=== PATIENT | male | born 1935 | race Caucasian/White ===

== ENCOUNTER → 2018-01-03 19:53 | Outpatient (CLI) | payer MEDICARE, SELFPAY | PROVIDERS: PCP Nurse Practitioner Family; Visit Provider Internal Medicine Adolescent Medicine | DX: G47.30 Sleep apnea, unspecified (principal); I10 Essential (primary) hypertension; R40.0 Somnolence | CPT/HCPCS: 95810 ==

== ENCOUNTER 2020-08-17 12:15 | Inpatient (IN) | payer MEDICARE, SELFPAY ==
[2020-08-17] VITALS (16 sets, daily range): BP systolic 114–182; BP diastolic 61–97; PULSE 68–83; RESP 16–18; TEMP 36.5–37.3; O2SAT 92–99; BMI 21.2; BMI 22.2
--- NOTE | 2020-08-17 12:20 | XR_ITS ---
PROCEDURE: XR CHEST PORTABLE CLINICAL HISTORY: fever COMPARISON: CT CT ABDOMEN PELVIS WO CON from 08/17/2020 FINDINGS: There is mild cardiomegaly with mild pulmonary venous congestion. Small bilateral pleural effusions are present better demonstrated on the recent abdomen CT. Atelectatic changes are present in the lung bases. There is faint increased density in the right lower lung zone which may be related to an area infiltrate or atelectatic change. Ground-glass attenuation noted in the left lower lobe on the recent CT scan and may be due to an area of patchy infiltrate not as well demonstrated on the radiograph. IMPRESSION: Small bilateral pleural effusions with slight increased markings in the right lower lobe which may be due to atelectasis or infiltrate. Faint ground-glass density in the left lower lobe also possibly due to atelectasis or infiltrate. Dictated by: Aiden Tobias MD 08/17/2020 16:26 Aiden Tobias MD in [place] 08/17/2020 16:26
--- NOTE | 2020-08-17 12:26 | CT_ITS ---
PROCEDURE: CT ABDOMEN PELVIS WO CON CLINICAL INDICATION: abd pain, vomiting Abdominal pain with nausea vomiting and diarrhea and fever COMPARISON: No exams were available for comparison TECHNIQUE: Axial images obtained with sagittal and coronal reformats. All CT scans at the facility use one or more dose reduction, viz: automated exposure control, ma/kV adjustment per patient size (including targeted exams where dose is matched to indication, i.e. head), or iterative reconstruction technique. FINDINGS: LOWER THORAX: There are small bilateral pleural effusions. Atelectatic changes are present in the lung bases. ABDOMEN & PELVIS: Prior cholecystectomy. Small pericardial effusion noted anteriorly and inferiorly. No focal liver lesion. The spleen, adrenal glands, have an unremarkable appearance. There is pancreatic atrophy. There has been a prior right nephrectomy. Left kidney has an unremarkable unenhanced appearance. No intestinal obstruction or free air. Prior partial right maikel colectomy with anastomosis to the small bowel in the right lower quadrant. Bowel gas pattern is nonspecific with scattered non distended fluid-filled loops of small bowel with a few air-fluid levels. No free air. There is colonic diverticulosis but no evidence of diverticulitis. Artifact is present from right hip prosthesis. No acute bony findings. There is a small sclerotic focus in the left acetabular region posteriorly and may be due to small bone island. IMPRESSION: 1. Small bilateral pleural effusions with mild bibasilar atelectasis. 2. Prior right nephrectomy and prior partial right hemicolectomy. 3. Scattered nondistended fluid-filled loops of small bowel with air-fluid levels which could be due to ileus or enteritis. 4. Colonic diverticulosis. No evidence of diverticulitis. Dictated by: Aiden Tobias MD 08/17/2020 15:11 Aiden Tobias MD in [place] 08/17/2020 15:11
--- NOTE | 2020-08-17 12:27 | HMH.EDGENADL ---
ED Disposition Clinical Impression: Ileus, Colitis, PEACE (acute kidney injury) Disposition: Admitted As Inpatient Condition on Discharge: Fair Time of Disposition: 16:22 - Critical Care Critical Care Time: No Attestation: On , the high probability of a clinically significant, sudden or life threatening deterioration of the following system(s) required my full and direct attention, intervention and personal management. The time I documented below is in addition to time spent performing reported procedures but includes the following listed in this critical care notation. Medical Decision Making - Medical Records Medical records reviewed: Yes: I reviewed the patient's medical records. - Mark Inquiry Pt receiving controlled substance: No Vital Signs: 08/17/20 12:31 08/17/20 12:54 08/17/20 13:01 Temperature 98.6 F Temperature Source Oral Pulse Rate 69 71 Pulse Rate [Right] 74 Respiratory Rate 16 Blood Pressure 137/69 135/61 Blood Pressure [Right Arm] 142/69 H Blood Pressure Mean Blood Pressure Mean [Right Arm] 93 Blood Pressure Source [Right Arm] Automatic Cuff Blood Pressure Position [Right Arm] Sitting 02 Sat by Pulse Oximetry 98 97 96 Oxygen Delivery Method Room Air 08/17/20 13:30 08/17/20 14:01 08/17/20 14:52 Temperature Temperature Source Pulse Rate 68 69 69 Pulse Rate [Right] Respiratory Rate Blood Pressure 140/71 126/65 157/75 H Blood Pressure [Right Arm] Blood Pressure Mean 94 Blood Pressure Mean [Right Arm] Blood Pressure Source [Right Arm] Blood Pressure Position [Right Arm] 02 Sat by Pulse Oximetry 97 97 99 Oxygen Delivery Method 08/17/20 15:00 08/17/20 15:30 08/17/20 15:45 Temperature Temperature Source Pulse Rate 71 71 72 Pulse Rate [Right] Respiratory Rate Blood Pressure 146/72 H 152/75 H 144/70 H Blood Pressure [Right Arm] Blood Pressure Mean 100 Blood Pressure Mean [Right Arm] Blood Pressure Source [Right Arm] Blood Pressure Position [Right Arm] 02 Sat by Pulse Oximetry 98 97 95 Oxygen Delivery Method 08/17/20 16:01 08/17/20 16:15 08/17/20 16:23 Temperature Temperature Source Pulse Rate 72 77 73 Pulse Rate [Right] Respiratory Rate Blood Pressure 161/83 H 177/97 H 176/90 H Blood Pressure [Right Arm] Blood Pressure Mean Blood Pressure Mean [Right Arm] Blood Pressure Source [Right Arm] Blood Pressure Position [Right Arm] 02 Sat by Pulse Oximetry 97 96 96 Oxygen Delivery Method 08/17/20 16:31 Temperature Temperature Source Pulse Rate 72 Pulse Rate [Right] Respiratory Rate Blood Pressure 182/86 H Blood Pressure [Right Arm] Blood Pressure Mean Blood Pressure Mean [Right Arm] Blood Pressure Source [Right Arm] Blood Pressure Position [Right Arm] 02 Sat by Pulse Oximetry 95 Oxygen Delivery Method - Lab Data Lab Results 08/17/20 12:30: WBC 14.9 H, RBC 3.50 L, Hgb 8.8 L, Hct 30.2 L, MCV 86.3, MCH 25.0 L, MCHC 29.0 L, RDW 14.0, Plt Count 454 H, MPV 7.5, Neut % (Auto) 90.6 H, Lymph % (Auto) 3.9 L, [place] % (Auto) 5.3, Eos % (Auto) 0.1, Baso % (Auto) 0.1, Neut # (Auto) 13.5 H, Lymph # (Auto) 0.6 L, [place] # (Auto) 0.8, Eos # (Auto) 0.0, Baso # (Auto) 0.0, Total Counted 100, Neutrophils % (Manual) 93 H, Lymphocytes % (Manual) 2 L, Monocytes % (Manual) 5, Platelet Estimate Normal, Hypochromasia 3+ 08/17/20 12:30: Sodium 135 L, Potassium 4.7, Chloride 103, Carbon Dioxide 24, Anion Gap 12.7, BUN 30 H, Creatinine 2.30 H, Estimated Creat Clear 25, Estimated GFR 27 L, Est GFR ( Amer) 33 L, Glucose 106 H, Calcium 8.9, Total Bilirubin 0.8, AST 23, ALT 12, Alkaline Phosphatase 129 H, Total Protein 7.2, Albumin 3.8, Globulin 3.4 H, Albumin/Globulin Ratio 1.1 08/17/20 12:30: Lactate 1.3 08/17/20 12:30: Lipase 17 L, Procalcitonin 0.628 08/17/20 14:47: Urine Color Yellow, Urine Appearance Clear, Urine pH 5.0, Ur Specific [place] 1.010, Urine Protein Negative, Uri
[2020-08-17 12:58] LABS: Basophils % 0.1 % (0.1-2.0); Chloride 103 mmol/L (98-107); Eosinophils % 0.1 % (0.1-12.0); Hematocrit 30.2 % (42.0-52.0); Hemoglobin 8.8 g/dL (14.1-18.0); Lymphocytes # 0.6 K/mm3 (0.7-4.5); Lymphocytes % 3.9 % (10-50); Mean Corpuscular Volume 86.3 fl (80-94); Mean Platelet Volume 7.5 fl (7.4-10.4); Monocytes # 0.8 K/mm3 (0.1-1.0); Monocytes % 5.3 % (1.7-9.3); Neutrophils # 13.5 K/mm3 (1.8-7.8); Neutrophils % 90.6 % (37.0-80.0); Platelet Count 454 K/mm3 (142-424); Sodium 135 mmol/L (136-145); White Blood Count 14.9 K/mm3 (4.8-10.8)
[2020-08-17 12:59] LABS: MANUAL DIFFERENTIAL MANUAL DIFFERENTIAL (MANUAL DIFF); Potassium 4.7 mmoL/L (3.5-5.1)
[2020-08-17 13:00] LABS: Lactic Acid 1.3 mmol/L (0.7-2.1)
[2020-08-17 13:01] LABS: Alanine Aminotransferase 12 U/L (12-78); Albumin Level 3.8 g/dl (3.5-5.0); Alkaline Phosphatase 129 U/L (38-126); Anion Gap 12.7 mEq/L (5-15); Aspartate Amino Transferase 23 U/L (17-59); Bilirubin,Total 0.8 mg/dl (0.2-1.3); Blood Urea Nitrogen 30 mg/dl (9-20); Carbon Dioxide 24 mmol/L (22.0-30.0); Creatinine Clearance Estimated 25 mL/min (50-200); Estimated Glomerular Filt Rate 27 ml/min (>60); GFR (African American) 33 ML/MIN (>60); Lipase 17 U/L (23-300)
[2020-08-17 13:02] LABS: Albumin/Globulin Ratio 1.1 (1.1-1.8); Calcium 8.9 mg/dl (8.4-10.2); Globulin 3.4 g/dL (1.3-3.2); Glucose 106 mg/dl (74-100); Total Protein,Serum 7.2 g/dl (6.3-8.2)
[2020-08-17 13:18] LABS: Procalcitonin 0.628 ng/mL (0.0-2.0)
--- NOTE | 2020-08-17 14:12 | PC.NURSE ---
patient to CT via stretcher.
--- NOTE | 2020-08-17 14:33 | PC.NURSE ---
Pt returned from rad
[2020-08-17 14:55] LABS: Microscopic, Urine URINE MICROSCOPIC (MICROSCOPIC)
[2020-08-17 15:02] LABS: Appearance,Urine CLEAR (Clear); Bilirubin,Urine Negative (Negative); Blood, Urine TRACE-I (Negative); Color,Urine YELLOW (Yellow); Glucose,Urine (UA) Negative (Negative); Ketones,Urine Negative (Negative); Leukocyte Esterase,Urine Negative (Negative); Nitrate,Urine Negative (Negative); Protein,Urine Negative (Negative); Urobilinogen,Urine 0.2 EU/dl (0.2)
[2020-08-17 15:17] LABS: Lymphocytes % 2 % (10-50); Monocytes % 5 % (2-9); Neutrophils % 93 % (42-76); Platelet Estimate Normal; Total Cells Counted 100
[2020-08-17 15:18] LABS: Bacteria,Urine 1+ /lpf; RBC,Urine Occasional #/hpf (0-3)
[2020-08-17 15:18] LABS: Hypochromasia 3+
--- NOTE | 2020-08-17 18:05 | PC.NURSE ---
report called to 2nd floor JONNATHAN Odom
--- NOTE | 2020-08-17 18:19 | PC.NURSE ---
Pt arrived to the floor at this time/
--- NOTE | 2020-08-18 03:07 | PC.NURSE ---
No acute changes overnight. A&O. Pt has slept well this shift. No c/o pain. Able to ambulate with standby assist and walker to bathroom. Lungs CTA, on room air. No edema noted. pt able to turn independently in bed. Bowel sounds x4, abd soft and nontender. IV patent, NS @ 150. VSS, call light in reach, no concerns at this time.
[2020-08-18 03:55] VITALS: BP 119/65; PULSE 84; RESP 16; TEMP 36.7; O2SAT 90
[2020-08-18 05:00] VITALS: BMI 23.3
[2020-08-18 07:11] LABS: Anion Gap 11.6 mEq/L (5-15); Blood Urea Nitrogen 27 mg/dl (9-20); Carbon Dioxide 19 mmol/L (22.0-30.0); Chloride 110 mmol/L (98-107); Creatinine Clearance Estimated 29 mL/min (50-200); Estimated Glomerular Filt Rate 29 ml/min (>60); GFR (African American) 35 ML/MIN (>60); Glucose 119 mg/dl (74-100); Potassium 4.6 mmoL/L (3.5-5.1); Sodium 136 mmol/L (136-145)
[2020-08-18 07:13] LABS: Calcium 7.9 mg/dl (8.4-10.2)
[2020-08-18 07:23] LABS: Basophils % 0.2 % (0.1-2.0); Hematocrit 24.1 % (42.0-52.0); Lymphocytes # 0.8 K/mm3 (0.7-4.5); Lymphocytes % 3.5 % (10-50); Mean Corpuscular HGB Conc 31.5 g/dL (31.8-35.4); Mean Corpuscular Hemoglobin 26.4 pg (27.0-31.2); Mean Corpuscular Volume 83.7 fl (80-94); Mean Platelet Volume 7.8 fl (7.4-10.4); Monocytes % 4.7 % (1.7-9.3); Neutrophils # 19.6 K/mm3 (1.8-7.8); Neutrophils % 91.6 % (37.0-80.0); Platelet Count 394 K/mm3 (142-424); Red Blood Count 2.88 M/mm3 (4.60-6.20); Red Cell Distribution Width 14.8 % (11.5-17.5); White Blood Count 21.4 K/mm3 (4.8-10.8)
--- NOTE | 2020-08-18 07:33 | P.CONPHA_ITS ---
[facility] Pharmacy VTE Monitoring - Patient Demographics Admission date: 08/17/20 Report Date: 08/18/20 Time: 07:33 Allergies/Adverse Reactions: Patient Allergies No Known Allergies Allergy (Verified 08/17/20 12:41) Height: 1.85 m Weight: 80.002 kg Patient Problems: Current Active Problems Ileus (Acute) Colitis (Acute) PEACE (acute kidney injury) (Acute) - VTE Risk Labs: VTE Related Lab Results Hgb 8.8 g/dL (14.1-18.0) L 08/17/20 12:30 Hct 30.2 % (42.0-52.0) L 08/17/20 12:30 Plt Count 454 K/mm3 (142-424) H 08/17/20 12:30 BUN 27 mg/dl (9-20) H 08/18/20 06:37 Creatinine 2.20 mg/dl (0.66-1.25) H 08/18/20 06:37 Estimated Creat Clear 29 mL/min (50-200) 08/18/20 06:37 - Prophylaxis VTE Prophylaxis Ordered?: Yes Types of VTE Prophylaxis: TEDS Knee High Location of Applied Device: Bilateral Lower Extremeties
[2020-08-18 07:36] LABS: Hemoglobin 7.6 g/dL (14.1-18.0)
[2020-08-18 07:37] LABS: MANUAL DIFFERENTIAL MANUAL DIFFERENTIAL (MANUAL DIFF)
[2020-08-18 07:44] VITALS: BP 137/59; PULSE 74; RESP 17; TEMP 36.9; O2SAT 92
[2020-08-18 08:00] VITALS: O2SAT 92
--- NOTE | 2020-08-18 09:23 | HMH.PHACONS ---
- Pharmacy Consult Date: 08/18/20 Time: 09:23 Referring provider: DR. HUFF Reason for Consult:: VANCOMYCIN DOSING Allergies and ADEs:: Allergies Allergy/AdvReac Type Severity Reaction Status Date / Time No Known Allergies Allergy Verified 08/17/20 12:41 Home Medications:: Home Medications Medication Instructions Recorded Confirmed Type Buspirone HCl [Buspar 10mg 10 mg PO BID 08/17/20 08/17/20 History tablet] Fluoxetine HCl [Prozac] 40 mg PO BID 08/17/20 08/17/20 History Gabapentin 600 mg PO BID 08/17/20 08/17/20 History Hydrocodone/Acetaminophen 7.5 - 325 mg PO TID 08/17/20 08/17/20 History [Hydrocodone-Acetamin 7.5-325] Lansoprazole 30 mg PO DAILY 08/17/20 08/17/20 History Ropinirole HCl 1 mg PO BID 08/17/20 08/17/20 History carvediloL [Carvedilol 3.125mg Tab] 3.125 mg PO BID 08/17/20 08/17/20 History Height: 1.85 m Weight: 80.002 kg Laboratory Results:: Laboratory Results - last 24 hr 08/17/20 12:30: WBC 14.9 H, RBC 3.50 L, Hgb 8.8 L, Hct 30.2 L, MCV 86.3, MCH 25.0 L, MCHC 29.0 L, RDW 14.0, Plt Count 454 H, MPV 7.5, Neut % (Auto) 90.6 H, Lymph % (Auto) 3.9 L, [place] % (Auto) 5.3, Eos % (Auto) 0.1, Baso % (Auto) 0.1, Neut # (Auto) 13.5 H, Lymph # (Auto) 0.6 L, [place] # (Auto) 0.8, Eos # (Auto) 0.0, Baso # (Auto) 0.0, Total Counted 100, Neutrophils % (Manual) 93 H, Lymphocytes % (Manual) 2 L, Monocytes % (Manual) 5, Platelet Estimate Normal, Hypochromasia 3+ 08/17/20 12:30: Sodium 135 L, Potassium 4.7, Chloride 103, Carbon Dioxide 24, Anion Gap 12.7, BUN 30 H, Creatinine 2.30 H, Estimated Creat Clear 25, Estimated GFR 27 L, Est GFR ( Amer) 33 L, Glucose 106 H, Calcium 8.9, Total Bilirubin 0.8, AST 23, ALT 12, Alkaline Phosphatase 129 H, Total Protein 7.2, Albumin 3.8, Globulin 3.4 H, Albumin/Globulin Ratio 1.1 08/17/20 12:30: Lactate 1.3 08/17/20 12:30: Lipase 17 L, Procalcitonin 0.628 08/17/20 14:47: Urine Color Yellow, Urine Appearance Clear, Urine pH 5.0, Ur Specific [place] 1.010, Urine Protein Negative, Urine Glucose (UA) Negative, Urine Ketones Negative, Urine Blood Trace-i, Urine Nitrate Negative, Urine Bilirubin Negative, Urine Urobilinogen 0.2, Ur Leukocyte Esterase Negative, Urine RBC Occasional, Urine WBC 3-5, Ur Squamous Epith Cells 3-5, Urine Bacteria 1+ 08/18/20 06:37: WBC 21.4 H* D, RBC 2.88 L, Hgb 7.6 L*, Hct 24.1 L, MCV 83.7, MCH 26.4 L, MCHC 31.5 L, RDW 14.8, Plt Count 394, MPV 7.8, Neut % (Auto) 91.6 H, Lymph % (Auto) 3.5 L, [place] % (Auto) 4.7, Eos % (Auto) 0.0 L, Baso % (Auto) 0.2, Neut # (Auto) 19.6 H, Lymph # (Auto) 0.8, [place] # (Auto) 1.0, Eos # (Auto) 0.0, Baso # (Auto) 0.0 08/18/20 06:37: Sodium 136, Potassium 4.6, Chloride 110 H, Carbon Dioxide 19 L D, Anion Gap 11.6, BUN 27 H, Creatinine 2.20 H, Estimated Creat Clear 29, Estimated GFR 29 L, Est GFR ( Amer) 35 L, Glucose 119 H, Calcium 7.9 L D Medical History: Reports:: Cancer Denies:: Diabetes Mellitus Type 1, Diabetes Mellitus Type 2 Assessment and Plan - Assessment and plan all Dx Assessment and Plan for all problems:: BASED ON PATIENT FACTORS, RECOMMEND INITIATING VANCOMYCIN AT 1,250MG IV EVERY 36 HOURS. PHARMACY WILL MONITOR PATIENT'S RESPONSE AND WILL ADJUST DOSE APPROPRIATE. -NURIA NIELSON, AMID
--- NOTE | 2020-08-18 09:38 | HMH.PHAINT ---
MEDICATION RECONCILIATION COMPLETED ON PATIENT USING EXTERNAL FILL HISTORY FROM PHARMACY. -NURIA NIELSON, AMID
[2020-08-18 09:48] LABS: Lymphocytes % 2 % (10-50); Monocytes % 7 % (2-9); Neutrophils % 91 % (42-76); Platelet Estimate Normal; Total Cells Counted 100
[2020-08-18 09:49] LABS: Hypochromasia 3+; Microcytosis 1+
--- NOTE | 2020-08-18 13:28 | HMH.HP ---
*Admission Date: 08/17/20 *Chief complaint: cough, fever; swelling of lip/nose *History of present illness: 84 yo M with worsening cough, diarrhea, weakness, and concern for dehydration, for a few days. Worsening overall fo ra few weeks though per daughters report. She noted redness and swelling of nose and lips 2-3 days ago. Presented to the ER last night with his daughter after developing a fever yesterday to greater than 100. He has stopped drinking and eating well per her report. On presentation to the ER he was noted to have PEACE, leukocytosis, and anemia. Daughter concern for infection of his face given the swelling of his upper lip. CT of patient's abdomen and pelvis showed left lower lobe consolidation as well as bowel loops with air-fluid levels. Started on Zosyn, admitted to medicine for further management. On labs this morning, patient's white cell count has worsened. He is remained afebrile however and hemodynamically stable. Stable on room air. Continues to have swelling of his face but states that pressure/pain is somewhat better today. Of note, Hx significant for hypertension, cancer status post nephrectomy of right kidney in April of this year. Daughter reports right lower lobe pneumonia a month ago treated as an outpatient with some improvement clinically. [facility] History I have reviewed the patient's past medical history: Yes Medical History: Reports:: Cancer Denies:: Diabetes Mellitus Type 1, Diabetes Mellitus Type 2 *Have you ever received a pneumonia vaccine?: Yes *Have you received a flu vaccine this season?: Yes Laterality Cases: Right: Total Knee Replacement Other Surgeries: Yes: Cancer Surgery - *Social History Smoking Status: Never smoker Alcohol Intake: never *Occupational Status:: retired Housing: house Household Members: family *Travel in the last 8 weeks: None Family Hx:: Cancer, Diabetes, Stroke Review of Systems - Review of Systems Review of systems:: pertinent systems reviewed and negative unless documented below - *Neurologic Reports weakness, Denies dizziness, Denies headache(s), Denies numbness, Denies tingling Meds Home Medications Medication Instructions Recorded Confirmed Type Buspirone HCl [Buspar 10mg 10 mg PO BID 08/17/20 08/17/20 History tablet] Fluoxetine HCl [Prozac] 40 mg PO BID 08/17/20 08/17/20 History Gabapentin 600 mg PO BID 08/17/20 08/17/20 History Hydrocodone/Acetaminophen 1 each PO TID 08/17/20 08/18/20 History [Hydrocodone-Acetamin 7.5-325] Lansoprazole 30 mg PO DAILY 08/17/20 08/17/20 History Ropinirole HCl 1 mg PO BID 08/17/20 08/17/20 History carvediloL [Carvedilol 3.125mg Tab] 3.125 mg PO BID 08/17/20 08/17/20 History Allergies Allergy/AdvReac Type Severity Reaction Status Date / Time No Known Allergies Allergy Verified 08/17/20 12:41 Exam Vital signs and Labs for Last 24 Hours: Temp Pulse Resp BP Pulse Ox 98.4 F 74 17 137/59 L 92 L 08/18/20 07:44 08/18/20 07:44 08/18/20 07:44 08/18/20 07:44 08/18/20 08:00 Laboratory Results - last 24 hr 08/17/20 12:30: Total Counted 100, Neutrophils % (Manual) 93 H, Lymphocytes % (Manual) 2 L, Monocytes % (Manual) 5, Platelet Estimate Normal, Hypochromasia 3+ 08/17/20 12:30: Lipase 17 L, Procalcitonin 0.628 08/17/20 14:47: Urine Color Yellow, Urine Appearance Clear, Urine pH 5.0, Ur Specific [place] 1.010, Urine Protein Negative, Urine Glucose (UA) Negative, Urine Ketones Negative, Urine Blood Trace-i, Urine Nitrate Negative, Urine Bilirubin Negative, Urine Urobilinogen 0.2, Ur Leukocyte Esterase Negative, Urine RBC Occasional, Urine WBC 3-5, Ur Squamous Epith Cells 3-5, Urine Bacteria 1+ 08/18/20 06:37: WBC 21.4 H* D, RBC 2.88 L, Hgb 7.6 L*, Hct 24.1 L, MCV 83.7, MCH 26.4 L, MCHC 31.5 L, RDW 14.8, Plt Count 394, MPV 7.8, Neut % (Auto) 91.6 H, Lymph % (Auto) 3.5 L, [place] % (Auto) 4.7, Eos % (Auto) 0.0 L, Baso % (Auto) 0.2, Neut # (Auto) 19.6 H, Lymph # (Auto) 0.8, [place] # (Auto) 1.0, Eos #
--- NOTE | 2020-08-18 14:12 | CT_ITS ---
PROCEDURE: CT FACIAL BONES WO CON CLINICAL HISTORY: Swelling of upper lip Soreness in nose Hx of kidney cancer COMPARISON: No exams were available for comparison TECHNIQUE: Axial images obtained with sagittal and coronal reformats. All CT scans at the facility use one or more dose reduction, viz: automated exposure control, ma/kV adjustment per patient size (including targeted exams where dose is matched to indication, i.e. head), or iterative reconstruction technique. FINDINGS: Mild diffuse soft tissue swelling is present involving the inferior aspect of the soft tissues of the nose and the upper lip slightly eccentric toward the right. No obvious abscess. No underlying bony destruction. The patient is edentulous. No sinus air-fluid level or significant mucosal thickening. There is mild leftward nasal septal deviation with septal spur projecting toward the left. No mastoid effusion. The orbits have an unremarkable appearance. IMPRESSION: Diffuse soft tissue swelling of the upper lip and lower aspect of the nose without obvious abscess or bony destruction. Dictated by: Aiden Tobias MD 08/19/2020 08:02 Aiden Tobias MD in [place] 08/19/2020 08:02
[2020-08-18 15:59] VITALS: BP 132/58; PULSE 65; RESP 19; TEMP 36.4; O2SAT 95
--- NOTE | 2020-08-18 16:35 | PC.NURSE ---
Pt has rested the majority of this shift. Pt ambulates in room w/ standby assist and walker. Bed alarm placed on pt's bed for safety. Fine crackles heard at RLL. Dry, nonproductive cough noted this shift. Pt remains on RA and is tolerating well. Daughter remains at bedside. No other acute changes or complaints at this time.
[2020-08-18 19:45] VITALS: RESP 22
[2020-08-18 20:00] VITALS: BP 95/60; PULSE 79; RESP 22; TEMP 37; O2SAT 95
[2020-08-19] VITALS (22 sets, daily range): BP systolic 120–154; BP diastolic 52–74; PULSE 57–73; RESP 16–25; TEMP 36.4–36.9; O2SAT 88–96; BMI 23.5; BMI 23.6
--- NOTE | 2020-08-19 03:55 | PC.NURSE ---
No acute changes noted. Pt is A&O x4. Has not c/o any discomfort this shift. Has slept well tonight. Has not had any fevers known, but did wake this AM with moist shift and damp pillow. Pt has not had any stools this shift. Ambulated to BR with walker and assist x1. VSS. Lungs are clear but diminished. BS active. During assessment, pt noted to have swelling to lip and pustules to nasal area. Medications administered per mar. Call light within reach. Safety measures in place. Will continue to monitor.
[2020-08-19 07:25] LABS: Basophils % 0.1 % (0.1-2.0); Eosinophils # 0.1 K/mm3 (0.0-0.4); Eosinophils % 0.5 % (0.1-12.0); Lymphocytes # 0.6 K/mm3 (0.7-4.5); Lymphocytes % 3.9 % (10-50); Mean Corpuscular HGB Conc 31.3 g/dL (31.8-35.4); Mean Corpuscular Hemoglobin 26.6 pg (27.0-31.2); Mean Corpuscular Volume 84.8 fl (80-94); Mean Platelet Volume 8.1 fl (7.4-10.4); Monocytes # 0.7 K/mm3 (0.1-1.0); Monocytes % 4.6 % (1.7-9.3); Neutrophils # 14.5 K/mm3 (1.8-7.8); Neutrophils % 90.9 % (37.0-80.0); Platelet Count 373 K/mm3 (142-424); Red Blood Count 2.71 M/mm3 (4.60-6.20); Red Cell Distribution Width 14.7 % (11.5-17.5)
[2020-08-19 07:35] LABS: Hemoglobin 7.2 g/dL (14.1-18.0)
[2020-08-19 07:36] LABS: MANUAL DIFFERENTIAL MANUAL DIFFERENTIAL (MANUAL DIFF)
[2020-08-19 07:38] LABS: Alanine Aminotransferase 9 U/L (12-78); Albumin Level 2.7 g/dl (3.5-5.0); Alkaline Phosphatase 90 U/L (38-126); Anion Gap 10.5 mEq/L (5-15); Aspartate Amino Transferase 17 U/L (17-59); Bilirubin,Total 0.5 mg/dl (0.2-1.3); Blood Urea Nitrogen 30 mg/dl (9-20); Calcium 7.7 mg/dl (8.4-10.2); Carbon Dioxide 19 mmol/L (22.0-30.0); Chloride 112 mmol/L (98-107); Creatinine Clearance Estimated 29 mL/min (50-200); Estimated Glomerular Filt Rate 29 ml/min (>60); GFR (African American) 35 ML/MIN (>60); Globulin 2.8 g/dL (1.3-3.2); Glucose 104 mg/dl (74-100); Potassium 4.5 mmoL/L (3.5-5.1); Sodium 137 mmol/L (136-145); Total Protein,Serum 5.5 g/dl (6.3-8.2)
--- NOTE | 2020-08-19 08:33 | HMH.ACPN2 ---
Internal Medicine - PN: Subj *Date: 08/19/20 *Time: 08:33 Interval history: Patient states that he feels better than he did on admission. Notes that his lip is slightly improved. Exam Vital signs and Labs for Last 24 Hours: Temp Pulse Resp BP Pulse Ox 98.4 F 73 18 136/68 94 L 08/19/20 07:57 08/19/20 07:57 08/19/20 07:57 08/19/20 07:57 08/19/20 07:57 Laboratory Results - last 24 hr 08/18/20 06:37: Total Counted 100, Neutrophils % (Manual) 91 H, Lymphocytes % (Manual) 2 L, Monocytes % (Manual) 7, Platelet Estimate Normal, Hypochromasia 3+, Microcytosis 1+ 08/19/20 07:01: WBC 16.0 H D, RBC 2.71 L, Hgb 7.2 L*, Hct 23.0 L*, MCV 84.8, MCH 26.6 L, MCHC 31.3 L, RDW 14.7, Plt Count 373, MPV 8.1, Neut % (Auto) 90.9 H, Lymph % (Auto) 3.9 L, [place] % (Auto) 4.6, Eos % (Auto) 0.5, Baso % (Auto) 0.1, Neut # (Auto) 14.5 H, Lymph # (Auto) 0.6 L, [place] # (Auto) 0.7, Eos # (Auto) 0.1, Baso # (Auto) 0.0 08/19/20 07:01: Sodium 137, Potassium 4.5, Chloride 112 H, Carbon Dioxide 19 L, Anion Gap 10.5, BUN 30 H, Creatinine 2.20 H, Estimated Creat Clear 29, Estimated GFR 29 L, Est GFR ( Amer) 35 L, Glucose 104 H, Calcium 7.7 L, Magnesium 2.0, Total Bilirubin 0.5, AST 17 D, ALT 9 L, Alkaline Phosphatase 90, Total Protein 5.5 L, Albumin 2.7 L, Globulin 2.8, Albumin/Globulin Ratio 1.0 L I & O for Last 24 hours: Intake & Output 08/16/20 08/17/20 08/18/20 08/19/20 11:59 11:59 11:59 11:59 Intake Total 120 / 120 3080 / 3080 Output Total 100 / 100 Balance 3080 / 3080 Weight 176 lb 6 oz 177 lb 8 oz Microbiology Reports for the Last 24 Hours: Microbiology 08/17/20 14:47 Urine,Random Urine Culture - Preliminary NO GROWTH AFTER 24 HOURS 08/17/20 12:30 Blood Blood Culture - Preliminary 08/17/20 12:30 Blood Blood Culture - Preliminary Narrative: Patient's upper lip is swollen, some pustules, almost consistent with impetigo, his daughter notes that she thinks it started off as an infected hair follicle at the upper aspect of his mustache in the right lower nostril. Lungs have good air movement, some rhonchi in the scattered bases. Heart rate regular. Abdomen soft, patient has an abrasion on his left hand from a recent fall. Otherwise skin is clear. Alert, pleasant, oriented, cranial nerves intact. Assessment and Plan (1) Facial cellulitis Status: Acute Category: Medical Code(s): L03.211 - Cellulitis of face (2) History of nephrectomy, right Status: Acute Category: Surgical Code(s): Z90.5 - Acquired absence of kidney (3) Essential hypertension Status: Acute Category: Medical Code(s): I10 - Essential (primary) hypertension (4) Chronic anemia Status: Acute Category: Medical Code(s): D64.9 - Anemia, unspecified (5) Colitis Status: Acute Category: Medical Code(s): K52.9 - Noninfective gastroenteritis and colitis, unspecified (6) PEACE (acute kidney injury) Status: Acute Category: Medical Code(s): N17.9 - Acute kidney failure, unspecified (7) Left lower lobe pneumonia Status: Acute Category: Medical Code(s): J18.9 - Pneumonia, unspecified organism (8) Recurrent falls Status: Acute Category: Medical Code(s): R29.6 - Repeated falls - Assessment and plan all Dx Assessment and Plan for all problems:: 1. Facial cellulitis-CT scan shows no evidence of abscess, mupirocin added to coverage. ENT consult pending. 2. Pneumonia/pneumonitis/atelectasis-on good respiratory coverage. Pulmonary toilet. Continue oxygen as needed. 3. Anemia-multiple etiologies-probable chronic disease/renal disease-transfused today. 4. Falls-PT/OT evaluation.
--- NOTE | 2020-08-19 09:57 | HMH.SLDYSPHA ---
Speech & Language Evaluation Speech/Language Dysphagia Evaluation Start: 08/19/20 09:46 Freq: ONCE Status: Active Protocol: Document 08/19/20 09:46 GARO (Rec: 08/19/20 09:57 GARO [id number]) Dysphagia Assess/Goals/Plan Assessment Date of Evaluation: 08/19/20 Evaluation Type Initial Certification Assessment/Problems Dysphagia Does Patient Qualify for Service No Qualify/Failure Comment Patient will be placed on least restrictive diet. Showed no overt s/s of dysphagia. Recommendations PHYSICIAN CERTIFICATION: The specified therapy services are required, authorized, and reviewed every 30 days. Diet Recommendations Mechanical Soft Liquid Type Recommendations Normal/Thin SL Swallow Guidelines Standard Aspiration Prec. Dysphagia Swallow Precautions/Strategies Small Bites and Sips,Alternate Liquids/Solids Plan Pt/Guardian verbally ack understanding Yes of dx/prognosis/goals G -code Required No General Information General Current Food Consistancy Regular,Thin Liquids Dentition Edentulous Oxygen Status Room Air Facial Symmetry Symmetrical Patient Orientation Person,Place Dysphagia:Food Presentation Evaluation Food Type Mechanical Soft,Regular,Liquid ,Pudding Dysphagia Evaluation Summary Mr. Roman was given the following consistencies: thins via open cup and straw, pudding, mechanical soft, and regular. No overt s/s of dysphagia were noted during evaluation. At this time, it is recommended that he be placed on mechanical soft diet with chopped meats and thin liquids. ST is not warranted at this time. Should problems continue, it is recommended a MBSS be completed. Stroke Dysphagia Assessment PHYSICIAN CERTIFICATION: I certify the specified therapy services for Marquis Roman are required, authorized, and reviewed every 30 days.
[2020-08-19 10:45] LABS: Lymphocytes % 7 % (10-50); Monocytes % 4 % (2-9); Neutrophils % 89 % (42-76); Platelet Estimate Normal; RBC Morphology Normal; Total Cells Counted 100
--- NOTE | 2020-08-19 16:16 | PC.NURSE ---
Sputum induced, pt unable to make productive cough at this time. Specimen cup left at bedside, encouraged to continue to cough.
--- NOTE | 2020-08-19 16:33 | PC.NURSE ---
Both transfusions completed at this time. VSS. No s/s noted of transfusion reaction. Will continue to monitor.
[2020-08-19 17:50] LABS: Hematocrit 31.2 % (42.0-52.0); Hemoglobin 9.6 g/dL (14.1-18.0)
--- NOTE | 2020-08-19 18:32 | PC.NURSE ---
No acute changes since prior assessment. Pt tolerated blood transfusion well. Pt continues to ambulate in room w/ walker and standby assist. Lung sounds CTA. Pt remains on RA. Will continue to monitor.
[2020-08-20] VITALS (7 sets, daily range): BP systolic 135–156; BP diastolic 64–78; PULSE 74–78; RESP 17–19; TEMP 36.5–37; O2SAT 84–92; BMI 24.5
--- NOTE | 2020-08-20 04:21 | PC.NURSE ---
Pt has rested well this shift. Has ambulated twice to BR with assist x1 and walker. Tolerated well. Pt noted this AM upon VS assessment to have O2 sat of 86% RA. Pt maintained upper 80s, therefore was placed on 2L O2 NC. O2 sat is currently 90%. Pt was given incentive spirometer and educated on its use. Pt demonstrated without difficulty. Lungs are diminished t/o. BS active. No BM this shift. Pt has voided x2. Medication administered per jun. Call light within use. No concerns noted at this time. Will continue to monitor.
--- NOTE | 2020-08-20 06:17 | PC.NURSE ---
MD Geiger notified of blood culture results both sets, MRSA.
[2020-08-20 06:26] LABS: Basophils % 0.1 % (0.1-2.0); Eosinophils # 0.1 K/mm3 (0.0-0.4); Eosinophils % 0.7 % (0.1-12.0); Hematocrit 29.9 % (42.0-52.0); Hemoglobin 9.4 g/dL (14.1-18.0); Lymphocytes # 0.8 K/mm3 (0.7-4.5); Lymphocytes % 4.5 % (10-50); Mean Corpuscular HGB Conc 31.2 g/dL (31.8-35.4); Mean Corpuscular Hemoglobin 26.4 pg (27.0-31.2); Mean Corpuscular Volume 84.5 fl (80-94); Mean Platelet Volume 8.2 fl (7.4-10.4); Monocytes # 0.9 K/mm3 (0.1-1.0); Monocytes % 5.4 % (1.7-9.3); Neutrophils # 15.4 K/mm3 (1.8-7.8); Neutrophils % 89.2 % (37.0-80.0); Platelet Count 433 K/mm3 (142-424); Red Blood Count 3.54 M/mm3 (4.60-6.20); Red Cell Distribution Width 15.3 % (11.5-17.5); White Blood Count 17.3 K/mm3 (4.8-10.8)
[2020-08-20 06:29] LABS: Anion Gap 11.4 mEq/L (5-15); Blood Urea Nitrogen 31 mg/dl (9-20); Calcium 8.1 mg/dl (8.4-10.2); Carbon Dioxide 18 mmol/L (22.0-30.0); Chloride 112 mmol/L (98-107); Creatinine Clearance Estimated 37 mL/min (50-200); Estimated Glomerular Filt Rate 36 ml/min (>60); GFR (African American) 44 ML/MIN (>60); Glucose 108 mg/dl (74-100); Potassium 4.4 mmoL/L (3.5-5.1); Sodium 137 mmol/L (136-145)
[2020-08-20 06:36] LABS: MANUAL DIFFERENTIAL MANUAL DIFFERENTIAL (MANUAL DIFF)
[2020-08-20 07:24] LABS: Eosinophils % 1 % (0-3); Hypochromasia 1+; Lymphocytes % 7 % (10-50); Monocytes % 5 % (2-9); Neutrophils % 87 % (42-76); Total Cells Counted 100
[2020-08-20 07:25] LABS: Platelet Estimate Slight Increase
--- NOTE | 2020-08-20 08:22 | CA_ITS ---
APPROVED REPORT EXAM: Comprehensive 2D, Doppler, and color-flow Echocardiogram Office Machine Technician: Tanya De La Vega RVT Ht: 6 ft 0 in Wt: 185lbs BSA: 2.06 BP: 140/64 mmHg Indications: HTN,PEACE,CHRONIC ANEMIA,MRSA,PNEUMONIA Echo Enhancing Agent Indication: Rule out Shunt Agent(s) / Amount(s) Used: Agitated Saline 5 cc Comments: APPEARS NEG 2D Dimensions LVOT 2.00 cm (M/F) 1.5-2.5 LA Volume 65.00 mL LA Volume Index 31.55 mL/m2 (M/F) 16-34 M-Mode Dimensions RVDd 2.50 cm (0.9-2.6) LA Diam 4.40 cm (1.9-4.0) LVDd 7.50 cm (3.5-5.7) Ao Diam 3.00 cm (2.0-3.7) LVDs 5.10 cm (3.5-5.7) AV Cusp 1.70 cm (1.5-2.6) IVSd 1.00 cm (0.6-1.1) PWd 0.80 cm (0.6-1.1) EF (Teich) 58.40% FS 32.00% EDV (Teich) 298.00 mL ESV (Teich) 124.00 mL LV Diastology E/A Ratio 1.5 MED E' 6.73 (< 7 cm/sec) E'/MED E' Ratio 20.10 (>14) LAT E' 9.75 (<10 cm/sec) E/LAT E' Ratio 13.80 (>14) Aortic Valve AoV Peak Serge. 124.00 (50-130 cm/s) AO Peak GR. 6.00 mmHg Mitral Valve MV E Max Serge. 135.00 (40-130 cm/s) MV A Velocity 92.80 (40-130 cm/s) E/A Ratio 1.50 Pulmonary Valve PV Peak Velocity 90.30 (50-150 cm/s) Tricuspid Valve TR P. Velocity 374.00 cm/s RAP Estimate 10.00 mmHg RVSP 66.00 mmHg Left Ventricle Is moderately enlarged, left ventricle is normal size, mild concentric left ventricular hypertrophy, visually estimated ejection fraction 55% with no regional wall motion abnormality, diastolic parameters are inconclusive. Right Ventricle Right atrium and right ventricle mildly enlarged with normal contractility. Aortic Valve Aortic valve is thickened and calcified without aortic stenosis, there is trace aortic insufficiency. Mitral Valve Mitral valve leaflets are minimally thickened, there is moderate to severe mitral regurgitation. Tricuspid Valve Tricuspid valve leaflets are minimally thickened, there is moderate tricuspid regurgitation, calculated right ventricular systolic pressure 73 mmHg. Pulmonic Valve Pulmonic valve is poorly visualized. Great Vessels Aortic root is normal size. Inferior vena cava is mildly dilated without significant inspiratory collapse. Pericardium No significant pericardial effusion noted Conclusion 1. Biatrial enlargement, normal left ventricular size, mild concentric left ventricular hypertrophy, visually estimated ejection fraction 55% with no regional wall motion abnormality, diastolic parameters are inconclusive. 2. Mildly enlarged right ventricle with normal contractility. 3. Thickened and calcified aortic valve with trace aortic insufficiency. 4. Moderate to severe mitral and moderate tricuspid regurgitation, calculated right ventricular systolic pressure 73 mmHg. 5. No significant pericardial effusion noted, there is left-sided pleural effusion seen, inferior vena cava is mildly dilated without significant inspiratory collapse. Electronically signed by : Shimon Lynn, 08/20/2020 16:15:28
--- NOTE | 2020-08-20 08:28 | HMH.ACPN2 ---
Internal Medicine - PN: Subj *Date: 08/20/20 *Time: 08:28 Interval history: Patient feels better than yesterday. No major complaints. Still feels slightly weak. Does note that he is breathing much better through his nose and states I can snuff. Exam Vital signs and Labs for Last 24 Hours: Temp Pulse Resp BP Pulse Ox 97.7 F 78 18 140/64 92 L 08/20/20 07:47 08/20/20 07:47 08/20/20 07:47 08/20/20 07:47 08/20/20 07:47 Laboratory Results - last 24 hr 08/17/20 14:47: Urine Color Yellow, Urine Appearance Clear, Urine pH 5.0, Ur Specific [place] 1.010, Urine Protein Negative, Urine Glucose (UA) Negative, Urine Ketones Negative, Urine Blood Trace-i, Urine Nitrate Negative, Urine Bilirubin Negative, Urine Urobilinogen 0.2, Ur Leukocyte Esterase Negative, Urine RBC Occasional, Urine WBC 3-5, Ur Squamous Epith Cells 3-5, Urine Bacteria 1+ 08/19/20 07:01: Total Counted 100, Neutrophils % (Manual) 89 H, Lymphocytes % (Manual) 7 L, Monocytes % (Manual) 4, Platelet Estimate Normal, RBC Morphology Normal 08/19/20 08:55: Blood Type A Positive, Antibody Screen Negative, Crossmatch (AHG) See Detail 08/19/20 10:50: Blood Type Confirm A Positive 08/19/20 17:25: Hgb 9.6 L D, Hct 31.2 L 08/20/20 06:03: WBC 17.3 H, RBC 3.54 L D, Hgb 9.4 L, Hct 29.9 L, MCV 84.5, MCH 26.4 L, MCHC 31.2 L, RDW 15.3, Plt Count 433 H, MPV 8.2, Neut % (Auto) 89.2 H, Lymph % (Auto) 4.5 L, [place] % (Auto) 5.4, Eos % (Auto) 0.7, Baso % (Auto) 0.1, Neut # (Auto) 15.4 H, Lymph # (Auto) 0.8, [place] # (Auto) 0.9, Eos # (Auto) 0.1, Baso # (Auto) 0.0, Total Counted 100, Neutrophils % (Manual) 87 H, Lymphocytes % (Manual) 7 L, Monocytes % (Manual) 5, Eosinophils % (Manual) 1, Platelet Estimate Slight increase, Hypochromasia 1+ 08/20/20 06:03: Sodium 137, Potassium 4.4, Chloride 112 H, Carbon Dioxide 18 L, Anion Gap 11.4, BUN 31 H, Creatinine 1.80 H, Estimated Creat Clear 37, Estimated GFR 36 L, Est GFR ( Amer) 44 L D, Glucose 108 H, Calcium 8.1 L I & O for Last 24 hours: Intake & Output 08/17/20 08/18/20 08/19/20 08/20/20 11:59 11:59 11:59 11:59 Intake Total 120 / 120 3080 / 3080 3870 / 3870 Output Total 100 / 100 Balance 3080 / 3080 3870 / 3870 Weight 176 lb 6 oz 177 lb 8 oz 185 lb 5 oz Microbiology Reports for the Last 24 Hours: Microbiology 08/17/20 12:30 Blood Blood Culture - Final Staphylococcus aureus 08/17/20 12:30 Blood Blood Culture - Final Staphylococcus aureus 08/17/20 14:47 Urine,Random Urine Culture - Final NO GROWTH AFTER 48 HOURS Narrative: Pleasant, talkative. Oriented. Nasal swelling is better with less pustular appearance and overall less erythema. Lungs have good air movement, minimal rhonchi in both bases. Heart rate regular. No visible edema, skin is intact. No abdominal swelling. Neurologically intact. Assessment and Plan (1) Facial cellulitis Status: Acute Category: Medical Code(s): L03.211 - Cellulitis of face (2) History of nephrectomy, right Status: Acute Category: Surgical Code(s): Z90.5 - Acquired absence of kidney (3) Essential hypertension Status: Acute Category: Medical Code(s): I10 - Essential (primary) hypertension (4) Chronic anemia Status: Acute Category: Medical Code(s): D64.9 - Anemia, unspecified (5) Colitis Status: Acute Category: Medical Code(s): K52.9 - Noninfective gastroenteritis and colitis, unspecified (6) PEACE (acute kidney injury) Status: Acute Category: Medical Code(s): N17.9 - Acute kidney failure, unspecified (7) Left lower lobe pneumonia Status: Acute Category: Medical Code(s): J18.9 - Pneumonia, unspecified organism (8) Recurrent falls Status: Acute Category: Medical Code(s): R29.6 - Repeated falls (9) MRSA bacteremia Status: Acute Category: Medical Code(s): R78.81 - Bacteremia; B95.62 - Methicillin resistant Stap
--- NOTE | 2020-08-20 09:00 | HMH.OTEV ---
OT Inpatient Evaluation Rehab OT IP Evaluation Start: 08/19/20 08:32 Freq: ONCE Status: Complete Protocol: Document 08/20/20 08:55 BERTSULLY (Rec: 08/20/20 08:59 ALFREDO [id number]) Rehab OT IP Assessment Subjective History *Admission Date: 08/17/20 *Chief complaint: cough, fever ; swelling of lip/nose *History of present illness: 84 yo M with worsening cough, diarrhea, weakness, and concern for dehydration, for a few days. Worsening overall fo ra few weeks though per daughters report. She noted redness and swelling of nose and lips 2-3 days ago. Presented to the ER last night with his daughter after developing a fever yesterday to greater than 100. He has stopped drinking and eating well per her report. On presentation to the ER he was noted to have PEACE, leukocytosis, and anemia. Daughter concern for infection of his face given the swelling of his upper lip. CT of patient's abdomen and pelvis showed left lower lobe consolidation as well as bowel loops with air-fluid levels. Started on Zosyn, admitted to medicine for further management. On labs this morning, patient' s white cell count has worsened. He is remained afebrile however and hemodynamically stable. Stable on room air. Continues to have swelling of his face but states that pressure/pain is somewhat better today. Of note, Hx significant for hypertension, cancer status post nephrectomy of right kidney in April of this year . Daughter reports right lower lobe pneumonia a month ago tr
--- NOTE | 2020-08-20 09:51 | HMH.CONS ---
*Admission Date: 08/17/20 *Reason for consult:: facial cellulitis *History of present illness: facial cellulites- presented and admitted August 17, 2020 [facility] History Medical History: Reports:: Cancer Denies:: Diabetes Mellitus Type 1, Diabetes Mellitus Type 2 *Have you ever received a pneumonia vaccine?: Yes *Have you received a flu vaccine this season?: Yes Laterality Cases: Right: Total Knee Replacement Other Surgeries: Yes: Cancer Surgery - *Social History Smoking Status: Never smoker Alcohol Intake: never *Occupational Status:: retired Housing: house Household Members: family *Travel in the last 8 weeks: None Family Hx:: Cancer, Diabetes, Stroke Review of Systems - ENT Reports other - *Neurologic Reports weakness, Denies dizziness, Denies headache(s), Denies numbness, Denies tingling Meds Home Medications Medication Instructions Recorded Confirmed Type Buspirone HCl [Buspar 10mg 10 mg PO BID 08/17/20 08/17/20 History tablet] Fluoxetine HCl [Prozac] 40 mg PO BID 08/17/20 08/17/20 History Gabapentin 600 mg PO BID 08/17/20 08/17/20 History Hydrocodone/Acetaminophen 1 each PO TID 08/17/20 08/18/20 History [Hydrocodone-Acetamin 7.5-325] Lansoprazole 30 mg PO DAILY 08/17/20 08/17/20 History Ropinirole HCl 1 mg PO BID 08/17/20 08/17/20 History carvediloL [Carvedilol 3.125mg Tab] 3.125 mg PO BID 08/17/20 08/17/20 History Allergies Allergy/AdvReac Type Severity Reaction Status Date / Time No Known Allergies Allergy Verified 08/17/20 12:41 Exam Vital signs and Labs for Last 24 Hours: Temp Pulse Resp BP Pulse Ox 97.7 F 78 18 140/64 92 L 08/20/20 07:47 08/20/20 07:47 08/20/20 07:47 08/20/20 07:47 08/20/20 07:50 Laboratory Results - last 24 hr 08/19/20 07:01: Total Counted 100, Neutrophils % (Manual) 89 H, Lymphocytes % (Manual) 7 L, Monocytes % (Manual) 4, Platelet Estimate Normal, RBC Morphology Normal 08/19/20 08:55: Blood Type A Positive, Antibody Screen Negative, Crossmatch (AHG) See Detail 08/19/20 10:50: Blood Type Confirm A Positive 08/19/20 17:25: Hgb 9.6 L D, Hct 31.2 L 08/20/20 06:03: WBC 17.3 H, RBC 3.54 L D, Hgb 9.4 L, Hct 29.9 L, MCV 84.5, MCH 26.4 L, MCHC 31.2 L, RDW 15.3, Plt Count 433 H, MPV 8.2, Neut % (Auto) 89.2 H, Lymph % (Auto) 4.5 L, [place] % (Auto) 5.4, Eos % (Auto) 0.7, Baso % (Auto) 0.1, Neut # (Auto) 15.4 H, Lymph # (Auto) 0.8, [place] # (Auto) 0.9, Eos # (Auto) 0.1, Baso # (Auto) 0.0, Total Counted 100, Neutrophils % (Manual) 87 H, Lymphocytes % (Manual) 7 L, Monocytes % (Manual) 5, Eosinophils % (Manual) 1, Platelet Estimate Slight increase, Hypochromasia 1+ 08/20/20 06:03: Sodium 137, Potassium 4.4, Chloride 112 H, Carbon Dioxide 18 L, Anion Gap 11.4, BUN 31 H, Creatinine 1.80 H, Estimated Creat Clear 37, Estimated GFR 36 L, Est GFR ( Amer) 44 L D, Glucose 108 H, Calcium 8.1 L I & O for Last 24 hours: Intake & Output 08/17/20 08/18/20 08/19/20 08/20/20 23:59 23:59 23:59 23:59 Intake Total 1344 / 1344 2956 / 2956 2770 / 2770 Output Total 100 / 100 Balance 1244 / 1244 2956 / 2956 2770 / 2770 Weight 168 lb 9 oz 176 lb 6 oz 178 lb 9.191 oz 185 lb 5 oz Microbiology Reports for the Last 24 Hours: Microbiology 08/17/20 12:30 Blood Blood Culture - Final Staphylococcus aureus 08/17/20 12:30 Blood Blood Culture - Final Staphylococcus aureus 08/17/20 14:47 Urine,Random Urine Culture - Final NO GROWTH AFTER 48 HOURS - *Routine HEENT Exam Comments: This patient was admitted from the ER on August 17, 2020 because of severe facial cellulitis. His white blood count was significantly elevated and went up to 21 thousand. As well, he was anemic and his hemoglobin was 8.8 on admission, and he was transfused with 2 units of blood. He was started on piperacillin antibiotics and he has responded to the treatment that was given. When examined for the ENT consult
--- NOTE | 2020-08-20 10:09 | HMH.PTEV ---
Physical Therapy Evaluation Rehab PT IP Evaluation Start: 08/19/20 08:32 Freq: ONCE Status: Active Protocol: Document 08/20/20 10:06 CLAIRE (Rec: 08/20/20 10:09 PHORMARCELLA [id number]) Subjective/History History History 84 yowm adm to [facility] with dehydration, PEACE, and possible sepsis. He reports he lives with daughter, 2-3 steps to enter the home, and he is independent with all mobility at baseline. Subjective Subjective Pt reports no c/o pain this am . Rehab PT IP Eval Objective Appearance Patient Behavior Appropriate Patient Orientation Person,Place,Time Difficulty following instructions none Speech Pattern Clear Ambulation Patient Able to Ambulate Yes Ambulation Observation IP General Gait Pattern Observation Shuffling Step Ambulation Distance (feet) 50 Ambulation Assistive Device Rolling Walker Ambulation Ability Supervision/Stand by Balance Ability to Arise Able, uses arms to help Sitting Balance Steady, safe Standing Balance Steady, wide stance Dynamic Sitting Balance Ability Normal Dynamic Standing Balance Ability Good Transfers Bed Transfer Ability Supervision/Stand by Chair Transfer Ability Supervision/Stand by Sit to Stand Bed Transfer Ability Supervision/Stand by Sit to Stand Chair Transfer Ability Supervision/Stand by ROM LLE PT ROM Status WFL MMT All Extremities PT MMT WFL Rehab PT IP prob,goals,plan Problems Date of Evaluation: 08/20/20 PT IP Problems Bed Mobility,Transfers,Gait, Self care Rehab Potential Rehab Potential Good Plan PT Intervention Plan Bed Mobility,Transfers,Gait, Self care,Therapeutic Exercise PT Plan Frequency BID Duration LOS Discharge Goals Bed Transfer Ability Independent Sit to Stand Chair Transfer Ability Independent Ambulation Assistive Device Rolling Walker Ambulation Distance (feet) 100 Discharge Plan PT Discharge Plan Pt is appropriate to return home once medically stable. Recommend home health therapy upon d/c. G -code Required No Eval Complexity Eval Charge Codes 23132 - Moderate Complexity PHYSICIAN CERTIFICATION: I certify the specified therapy services for
--- NOTE | 2020-08-20 13:02 | PC.NURSE ---
Addendum entered by Joann Gray RN 08/20/20 13:33: 1305 saline lock iv at this time Original Note: Notified Dr Geiger that the pt sats are 84 on ra, faint crackles noted in bob lungs. pt fluids going at 150, may fluids be decreased?
--- NOTE | 2020-08-20 13:55 | XR_ITS ---
PROCEDURE: XR CHEST 2V CLINICAL HISTORY: pleural effusion COMPARISON: CT CT ABDOMEN PELVIS WO CON from 08/17/2020 FINDINGS: The cardiomediastinal silhouette and pulmonary vascularity are within normal limits. Consolidation is developing in both upper lobes and right perihilar region consistent with bilateral pneumonia. There are small bilateral pleural effusions. Atelectasis or infiltrate noted in the left lung base. Chronic interstitial changes are present. Minimal atelectatic changes right lung base. No acute bony abnormalities. IMPRESSION: Worsening bilateral upper lobe and perihilar pneumonia with small bilateral effusions and left basilar atelectasis or consolidation Dictated by: Aiden Tobias MD 08/20/2020 14:46 Aiden Tobias MD in [place] 08/20/2020 14:46
--- NOTE | 2020-08-20 18:56 | PC.NURSE ---
Pt has worked with PT/OT this shift. lungs have scattered crackles. fluids were dc by . pt was placed on o2 and has no longer c/o dyspnea this shift. pt has complained of periodic sweats that soak the bed. nad noted. pt is pleasant.
[2020-08-21] VITALS (12 sets, daily range): BP systolic 133–166; BP diastolic 60–87; PULSE 69–78; RESP 17–22; TEMP 36–36.9; O2SAT 88–96; BMI 25.4
--- NOTE | 2020-08-21 04:30 | PC.NURSE ---
shift summary slight crackles auscultated in bilateral lungs on 1.5Lpm via NC. pt is alert and oriented X4. no acute changes, pt denies any pain, nausea, vomiting, or diarrhea. pt is able to ambulate to bathroom with walker and a standby assist.
[2020-08-21 06:56] LABS: Alanine Aminotransferase 10 U/L (12-78); Albumin Level 2.9 g/dl (3.5-5.0); Alkaline Phosphatase 126 U/L (38-126); Anion Gap 9.4 mEq/L (5-15); Aspartate Amino Transferase 19 U/L (17-59); Bilirubin,Total 0.7 mg/dl (0.2-1.3); Blood Urea Nitrogen 30 mg/dl (9-20); Calcium 8.1 mg/dl (8.4-10.2); Carbon Dioxide 17 mmol/L (22.0-30.0); Chloride 113 mmol/L (98-107); Creatinine Clearance Estimated 38 mL/min (50-200); Estimated Glomerular Filt Rate 36 ml/min (>60); GFR (African American) 44 ML/MIN (>60); Globulin 2.9 g/dL (1.3-3.2); Glucose 98 mg/dl (74-100); Potassium 4.4 mmoL/L (3.5-5.1); Sodium 135 mmol/L (136-145); Total Protein,Serum 5.8 g/dl (6.3-8.2)
[2020-08-21 07:05] LABS: Basophils % 0.2 % (0.1-2.0); Eosinophils # 0.1 K/mm3 (0.0-0.4); Eosinophils % 0.9 % (0.1-12.0); Hematocrit 28.9 % (42.0-52.0); Hemoglobin 9.2 g/dL (14.1-18.0); Lymphocytes # 0.5 K/mm3 (0.7-4.5); Lymphocytes % 4.1 % (10-50); Mean Corpuscular HGB Conc 31.9 g/dL (31.8-35.4); Mean Corpuscular Hemoglobin 26.4 pg (27.0-31.2); Mean Corpuscular Volume 82.9 fl (80-94); Mean Platelet Volume 9.3 fl (7.4-10.4); Monocytes # 0.9 K/mm3 (0.1-1.0); Monocytes % 7.2 % (1.7-9.3); Neutrophils % 87.6 % (37.0-80.0); Platelet Count 388 K/mm3 (142-424); Red Blood Count 3.49 M/mm3 (4.60-6.20); Red Cell Distribution Width 15.5 % (11.5-17.5); White Blood Count 12.6 K/mm3 (4.8-10.8)
[2020-08-21 07:19] LABS: MANUAL DIFFERENTIAL MANUAL DIFFERENTIAL (MANUAL DIFF)
--- NOTE | 2020-08-21 08:26 | HMH.ACPN ---
Internal Medicine - PN: Subj *Date: 08/21/20 *Time: 08:26 Exam Vital signs and Labs for Last 24 Hours: Temp Pulse Resp BP Pulse Ox 97.9 F 70 17 150/74 H 94 L 08/21/20 04:00 08/21/20 04:00 08/21/20 04:00 08/21/20 04:00 08/21/20 04:00 Laboratory Results - last 24 hr 08/21/20 06:11: WBC 12.6 H D, RBC 3.49 L, Hgb 9.2 L, Hct 28.9 L, MCV 82.9, MCH 26.4 L, MCHC 31.9, RDW 15.5, Plt Count 388, MPV 9.3, Neut % (Auto) 87.6 H, Lymph % (Auto) 4.1 L, [place] % (Auto) 7.2, Eos % (Auto) 0.9, Baso % (Auto) 0.2, Neut # (Auto) 11.0 H, Lymph # (Auto) 0.5 L, [place] # (Auto) 0.9, Eos # (Auto) 0.1, Baso # (Auto) 0.0 08/21/20 06:11: Sodium 135 L, Potassium 4.4, Chloride 113 H, Carbon Dioxide 17 L, Anion Gap 9.4, BUN 30 H, Creatinine 1.80 H, Estimated Creat Clear 38, Estimated GFR 36 L, Est GFR ( Amer) 44 L, Glucose 98, Calcium 8.1 L, Total Bilirubin 0.7, AST 19, ALT 10 L, Alkaline Phosphatase 126, Total Protein 5.8 L, Albumin 2.9 L, Globulin 2.9, Albumin/Globulin Ratio 1.0 L I & O for Last 24 hours: Intake & Output 08/18/20 08/19/20 08/20/20 08/21/20 23:59 23:59 23:59 23:59 Intake Total 1344 / 1344 2956 / 2956 3370 / 3370 Output Total 100 / 100 Balance 1244 / 1244 2956 / 2956 3370 / 3370 Weight 80.002 kg 81 kg 84.056 kg 86.908 kg Microbiology Reports for the Last 24 Hours: Microbiology 08/19/20 09:09 Sputum - Expectorated Sputum Gram Stain - Final 08/17/20 12:30 Blood Blood Culture - Final Staphylococcus aureus 08/17/20 12:30 Blood Blood Culture - Final Staphylococcus aureus Assessment and Plan (1) Facial cellulitis Status: Acute Category: Medical Code(s): L03.211 - Cellulitis of face (2) History of nephrectomy, right Status: Acute Category: Surgical Code(s): Z90.5 - Acquired absence of kidney (3) Essential hypertension Status: Acute Category: Medical Code(s): I10 - Essential (primary) hypertension (4) Chronic anemia Status: Acute Category: Medical Code(s): D64.9 - Anemia, unspecified (5) Colitis Status: Acute Category: Medical Code(s): K52.9 - Noninfective gastroenteritis and colitis, unspecified (6) PEACE (acute kidney injury) Status: Acute Category: Medical Code(s): N17.9 - Acute kidney failure, unspecified (7) Left lower lobe pneumonia Status: Acute Category: Medical Code(s): J18.9 - Pneumonia, unspecified organism (8) Recurrent falls Status: Acute Category: Medical Code(s): R29.6 - Repeated falls (9) MRSA bacteremia Status: Acute Category: Medical Code(s): R78.81 - Bacteremia; B95.62 - Methicillin resistant Staphylococcus aureus infection as the cause of diseases classified elsewhere The patient's infection will respond to the chosen ABx?: Yes Is the patient receiving the right drug, dose, and route?: Yes Could a more targeted ABx be ordered?: No (BLOOD CX=MRSA, CONTINUE VANCOMYCIN)
--- NOTE | 2020-08-21 08:32 | HMH.ACPN2 ---
Internal Medicine - PN: Subj *Date: 08/21/20 *Time: 08:32 Interval history: Patient states he feels better, sitting up in his bed eating oatmeal. Pulling 1000 mL on incentive spirometer. Has had a cough productive of very dark sputum, sputum culture has been obtained and is in lab. Exam Vital signs and Labs for Last 24 Hours: Temp Pulse Resp BP Pulse Ox 98.5 F 78 21 166/74 H 89 L 08/21/20 08:00 08/21/20 08:00 08/21/20 08:00 08/21/20 08:00 08/21/20 08:00 Laboratory Results - last 24 hr 08/21/20 06:11: WBC 12.6 H D, RBC 3.49 L, Hgb 9.2 L, Hct 28.9 L, MCV 82.9, MCH 26.4 L, MCHC 31.9, RDW 15.5, Plt Count 388, MPV 9.3, Neut % (Auto) 87.6 H, Lymph % (Auto) 4.1 L, [place] % (Auto) 7.2, Eos % (Auto) 0.9, Baso % (Auto) 0.2, Neut # (Auto) 11.0 H, Lymph # (Auto) 0.5 L, [place] # (Auto) 0.9, Eos # (Auto) 0.1, Baso # (Auto) 0.0 08/21/20 06:11: Sodium 135 L, Potassium 4.4, Chloride 113 H, Carbon Dioxide 17 L, Anion Gap 9.4, BUN 30 H, Creatinine 1.80 H, Estimated Creat Clear 38, Estimated GFR 36 L, Est GFR ( Amer) 44 L, Glucose 98, Calcium 8.1 L, Total Bilirubin 0.7, AST 19, ALT 10 L, Alkaline Phosphatase 126, Total Protein 5.8 L, Albumin 2.9 L, Globulin 2.9, Albumin/Globulin Ratio 1.0 L I & O for Last 24 hours: Intake & Output 08/18/20 08/19/20 08/20/20 08/21/20 11:59 11:59 11:59 11:59 Intake Total 120 / 120 3080 / 3080 3870 / 3870 840 / 840 Output Total 100 / 100 Balance 3080 / 3080 3870 / 3870 840 / 840 Weight 176 lb 6 oz 177 lb 8 oz 185 lb 5 oz 191 lb 9.6 oz Microbiology Reports for the Last 24 Hours: Microbiology 08/19/20 09:09 Sputum - Expectorated Sputum Gram Stain - Final 08/17/20 12:30 Blood Blood Culture - Final Staphylococcus aureus 08/17/20 12:30 Blood Blood Culture - Final Staphylococcus aureus Narrative: Facial cellulitis/impetigo looks markedly improved. Oropharynx clear. Lungs have rhonchi in both bases. Air movement is good. However continues to have an oxygen requirement. Heart rate regular. Abdomen soft. No edema or clubbing. Neurologically intact. Assessment and Plan (1) Facial cellulitis Status: Acute Category: Medical Code(s): L03.211 - Cellulitis of face (2) History of nephrectomy, right Status: Acute Category: Surgical Code(s): Z90.5 - Acquired absence of kidney (3) Essential hypertension Status: Acute Category: Medical Code(s): I10 - Essential (primary) hypertension (4) Chronic anemia Status: Acute Category: Medical Code(s): D64.9 - Anemia, unspecified (5) Colitis Status: Acute Category: Medical Code(s): K52.9 - Noninfective gastroenteritis and colitis, unspecified (6) PEACE (acute kidney injury) Status: Acute Category: Medical Code(s): N17.9 - Acute kidney failure, unspecified (7) Left lower lobe pneumonia Status: Acute Category: Medical Code(s): J18.9 - Pneumonia, unspecified organism (8) Recurrent falls Status: Acute Category: Medical Code(s): R29.6 - Repeated falls (9) MRSA bacteremia Status: Acute Category: Medical Code(s): R78.81 - Bacteremia; B95.62 - Methicillin resistant Staphylococcus aureus infection as the cause of diseases classified elsewhere (10) Pleural effusion Status: Acute Category: Medical Code(s): J90 - Pleural effusion, not elsewhere classified - Assessment and plan all Dx Assessment and Plan for all problems:: 1. MRSA bacteremia-improving clinically. Await negative culture results from repeat culture. At this point we will decide on length of need for vancomycin therapy. 2. Facial cellulitis-probable source-improving. Appreciate ENT input. 3. Pleural effusion with dyspnea and oxygen requirement. Echocardiogram reassuring. Pulmonary consultation today to evaluate for possible thoracentesis versus other changes in therapy. Cefepime today given high likelihood of pneumonia to a
[2020-08-21 08:35] LABS: Vancomycin,Trough 10.1 ug/mL (5.0-10.0)
--- NOTE | 2020-08-21 09:06 | CT_ITS ---
PROCEDURE: CT CHEST WO CON CLINICAL INDICATION: PNM Pneumonia, shortness of breath COMPARISON: CT CT ABDOMEN PELVIS WO CON from 08/17/2020 CR XR CHEST 2V from 08/20/2020 TECHNIQUE: Axial images obtained with sagittal and coronal reformats. All CT scans at the facility use one or more dose reduction, viz: automated exposure control, ma/kV adjustment per patient size (including targeted exams where dose is matched to indication, i.e. head), or iterative reconstruction technique. FINDINGS: HEART AND MEDIASTINAL STRUCTURES: There is a mildly enlarged anterior mediastinal lymph node measuring 2.9 x 1.8 cm. Other smaller nodes are present in the mediastinum. Coronary artery calcifications are noted. LUNGS AND PLEURAL SPACES: There is diffuse bilateral pneumonia with dense consolidation in the right upper lobe and left upper lobe. In the left apex there is a 1.4 cm more dense nodular opacity. In the left upper lobe laterally there is a 12 mm opacity is well. In the right upper lobe laterally there are 2 areas soft tissue density measuring 2 cm each. In the right middle lobe medially there is a nodular opacity at 2 cm in the left upper lobe medially there is a 1.9 cm nodular opacity. 1.8 cm opacity right upper lobe medially. These could be due to more dense areas of consolidation or pulmonary nodules/masses. There are medium-sized bilateral pleural effusions with bibasilar atelectatic changes. The right effusion is slightly larger than the left. BONY STRUCTURES: No acute bony abnormalities apparent. UPPER ABDOMEN: There has been a prior right nephrectomy. ADDITIONAL FINDINGS: No other significant abnormalities. IMPRESSION: 1. Bilateral upper lobe pneumonia. 2. Scattered bilateral nodular opacities. These could be due to areas of more dense consolidation or pulmonary nodules such as metastatic foci. There is given history of renal cancer from the previous CT scan. Follow-up suggested following your resolution of the pneumonia. 3. Medium-sized bilateral pleural effusions right slightly larger than left with bibasilar atelectatic change. Dictated by: Aiden Tobias MD 08/21/2020 11:55 Aiden Tobias MD in [place] 08/21/2020 11:55
--- NOTE | 2020-08-21 09:22 | US_ITS ---
PROCEDURE: US THORACENTESIS CLINICAL INDICATION: PLEURAL EFFUSION COMPARISON: No exams were available for comparison FINDINGS: Following obtaining informed consent and time-out procedure under aseptic conditions with local anesthesia with 1 percent buffered lidocaine, and using sonographic guidance, a 21 gauge needle was inserted into the posterior lower hemithorax within an intercostal space. Approximately thirty mL serous fluid was aspirated. There was no immediate complications. Post procedure radiograph showed no evidence of pneumothorax. Fluid was sent for laboratory analysis as previously ordered IMPRESSION: Uneventful ultrasound-guided right-sided thoracentesis Dictated by: Aiden Tobias MD 08/21/2020 16:42 Aiden Tobias MD in [place] 08/21/2020 16:42
[2020-08-21 09:28] LABS: Hypochromasia 2+; Lymphocytes % 6 % (10-50); Monocytes % 7 % (2-9); Neutrophils % 87 % (42-76); Platelet Estimate Normal; Total Cells Counted 100
--- NOTE | 2020-08-21 09:59 | DIET.NUTRFU ---
Addendum entered by Senait Vidales 08/24/20 12:54: PO intakes 75% + BID supplements, weight stable, has still not had a BM. Both pt's appetite and pain with eating dt cellulitis continuing to improve. No changes to nutritional care plan at this time, continuing to monitor. Original Note: PO intakes 50% + BID supplements. 15# weight gain recorded t/o stay, IVF has been dc'd. No BM t/o stay. Pt states his appetite has improved and mechanical soft diet has improved pain with eating, but he still has difficulty dt facial cellulitis. Pt and daughter have been encouraged to request additional supplements/snacks/replacement meals at any time.
--- NOTE | 2020-08-21 12:29 | XR_ITS ---
PROCEDURE: XR CHEST 2V CLINICAL HISTORY: POST THOROCENTESIS COMPARISON: CR XR CHEST PORTABLE from 08/17/2020 CR XR CHEST 2V from 08/20/[address] CHEST WO CON from 08/21/2020 FINDINGS: The cardiomediastinal silhouette and pulmonary vascularity are within normal limits. Diffuse bilateral pneumonia in the mid and upper lung zones with medium-sized bilateral effusions noted. No evidence of pneumothorax. No acute bony abnormalities. IMPRESSION: Bilateral pneumonia with effusions. No evidence of pneumothorax. Dictated by: Aiden Tobias MD 08/21/2020 13:05 Aiden Tobias MD in [place] 08/21/2020 13:05
--- NOTE | 2020-08-21 13:21 | HMH.PULMCON ---
*Admission Date: 08/17/20 *Reason for consult:: Acute hypoxic respiratory failure, MRSA Pneumonia *History of present illness: 84-year-old male with no prior respiratory complaints not on any oxygen at home, not using any inhalers presented to the hospital complaining of cough diarrhea weakness also concerning for facial cellulitis and eventually admitted to the hospital and found to be bacteremic with MRSA, initiated on antibiotics found to have worsening airspace disease and effusions on today's chest x-rays and pulmonary was called for further management. [facility] History Medical History: Reports:: Cancer Denies:: Diabetes Mellitus Type 1, Diabetes Mellitus Type 2 *Have you ever received a pneumonia vaccine?: Yes *Have you received a flu vaccine this season?: Yes Laterality Cases: Right: Total Knee Replacement Other Surgeries: Yes: Cancer Surgery - *Social History Smoking Status: Never smoker Alcohol Intake: never *Occupational Status:: retired Housing: house Household Members: family *Travel in the last 8 weeks: None Family Hx:: Cancer, Diabetes, Stroke ROS - Cons Reports anorexia, Reports chills, Reports fatigue, Reports fever(s) - ENT Reports abnormal hearing - Card Reports shortness of breath, Reports shortness of breath with activity, Reports leg swelling - Resp Respiratory: Reports chest congestion, Reports dyspnea, Reports dyspnea on exertion, Reports cough with sputum production - GI Gastrointestingal: Denies: abdominal pain Meds Home Medications Medication Instructions Recorded Confirmed Type Buspirone HCl [Buspar 10mg 10 mg PO BID 08/17/20 08/17/20 History tablet] Fluoxetine HCl [Prozac] 40 mg PO BID 08/17/20 08/17/20 History Gabapentin 600 mg PO BID 08/17/20 08/17/20 History Hydrocodone/Acetaminophen 1 each PO TID 08/17/20 08/18/20 History [Hydrocodone-Acetamin 7.5-325] Lansoprazole 30 mg PO DAILY 08/17/20 08/17/20 History Ropinirole HCl 1 mg PO BID 08/17/20 08/17/20 History carvediloL [Carvedilol 3.125mg Tab] 3.125 mg PO BID 08/17/20 08/17/20 History Allergies Allergy/AdvReac Type Severity Reaction Status Date / Time No Known Allergies Allergy Verified 08/17/20 12:41 Exam - Constitutional Constitutional:: Present: comfortable, healthy appearing - HENMT Exam HENMT: Present: normocephalic, atraumatic - Eye Exam Eyes:: Present: normal appearance both eyes and related structures - Neck Exam Neck:: Present: normal visual inspection - Respiratory Exam Respiratory:: Present: respiratory distress, crackles. Absent: able to speak in complete sentences Comments: Bilateral coarse breath sounds decreased breath sounds in lung bases - Cardiovascular Exam Cardiac:: Present: S1, S2 - GI Exam GI:: Present: soft - Skin Exam Skin: Present: warm, no rash - Neurological Exam Neurological: Present: alert, awake, normal cognition - Extremities Exam Extremities: Present: no cyanosis, no clubbing, edema Internal Medicine - CN: Reslt - Labs CBC & Chem 7: 08/21/20 06:11 08/21/20 06:11 Labs: Short CBC 08/21/20 Range/Units 06:11 WBC 12.6 H D (4.8-10.8) K/mm3 Hgb 9.2 L (14.1-18.0) g/dL Hct 28.9 L (42.0-52.0) % Plt Count 388 (142-424) K/mm3 BMP 08/21/20 06:11 Sodium 135 L Potassium 4.4 Chloride 113 H Carbon Dioxide 17 L BUN 30 H Creatinine 1.80 H Glucose 98 Calcium 8.1 L Liver Function 08/21/20 Range/Units 06:11 Total Bilirubin 0.7 (0.2-1.3) mg/dl AST 19 (17-59) U/L ALT 10 L (12-78) U/L Alkaline Phosphatase 126 (38-126) U/L Albumin 2.9 L (3.5-5.0) g/dl Assessment and Plan (1) Facial cellulitis Status: Acute Category: Medical Code(s): L03.211 - Cellulitis of face (2) History of nephrectomy, right Status: Acute Category: Surgical Code(s): Z90.5 - Acquired absence of kidney (3) Essential hypertension Status: Acute Category: Medical Code(s): I10 - Essential (primary) hyper
[2020-08-21 14:00] LABS: Lactate Dehydrogenase 395 U/L (313-618)
[2020-08-21 14:10] LABS: Appearance,Body Fld. Slightly hazy; Source, Body Fld. Thoracentesis Fluid; TNC,Body Fluid 747 cells/uL (< 1000); Volume,Body Fld. 5 mL
[2020-08-21 14:11] LABS: RBC,Body Fluid < 10 cells/uL (< 10 X 10^3)
--- NOTE | 2020-08-21 14:36 | HMH.PHACONS ---
- Pharmacy Consult Date: 08/21/20 Time: 14:36 Referring provider: DR. ANGEL Reason for Consult:: VANCOMYCIN TROUGH LEVEL AND DOSING Allergies and ADEs:: Allergies Allergy/AdvReac Type Severity Reaction Status Date / Time No Known Allergies Allergy Verified 08/17/20 12:41 Home Medications:: Home Medications Medication Instructions Recorded Confirmed Type Buspirone HCl [Buspar 10mg 10 mg PO BID 08/17/20 08/17/20 History tablet] Fluoxetine HCl [Prozac] 40 mg PO BID 08/17/20 08/17/20 History Gabapentin 600 mg PO BID 08/17/20 08/17/20 History Hydrocodone/Acetaminophen 1 each PO TID 08/17/20 08/18/20 History [Hydrocodone-Acetamin 7.5-325] Lansoprazole 30 mg PO DAILY 08/17/20 08/17/20 History Ropinirole HCl 1 mg PO BID 08/17/20 08/17/20 History carvediloL [Carvedilol 3.125mg Tab] 3.125 mg PO BID 08/17/20 08/17/20 History Height: 1.85 m Weight: 86.908 kg Laboratory Results:: Laboratory Results - last 24 hr 08/21/20 06:11: WBC 12.6 H D, RBC 3.49 L, Hgb 9.2 L, Hct 28.9 L, MCV 82.9, MCH 26.4 L, MCHC 31.9, RDW 15.5, Plt Count 388, MPV 9.3, Neut % (Auto) 87.6 H, Lymph % (Auto) 4.1 L, [place] % (Auto) 7.2, Eos % (Auto) 0.9, Baso % (Auto) 0.2, Neut # (Auto) 11.0 H, Lymph # (Auto) 0.5 L, [place] # (Auto) 0.9, Eos # (Auto) 0.1, Baso # (Auto) 0.0, Total Counted 100, Neutrophils % (Manual) 87 H, Lymphocytes % (Manual) 6 L, Monocytes % (Manual) 7, Platelet Estimate Normal, Hypochromasia 2+ 08/21/20 06:11: Sodium 135 L, Potassium 4.4, Chloride 113 H, Carbon Dioxide 17 L, Anion Gap 9.4, BUN 30 H, Creatinine 1.80 H, Estimated Creat Clear 38, Estimated GFR 36 L, Est GFR ( Amer) 44 L, Glucose 98, Calcium 8.1 L, Total Bilirubin 0.7, AST 19, ALT 10 L, Alkaline Phosphatase 126, Total Protein 5.8 L, Albumin 2.9 L, Globulin 2.9, Albumin/Globulin Ratio 1.0 L 08/21/20 07:44: Vancomycin Trough 10.1 H 08/21/20 07:44: Lactate Dehydrogenase 395 08/21/20 12:00: Fluid Source Thoracentesis fluid, Fluid Volume 5, Fluid Appearance Slightly hazy, Fluid RBC (Auto) < 10, Fld Tot Nucleated Cell 747 Medical History: Reports:: Cancer Denies:: Diabetes Mellitus Type 1, Diabetes Mellitus Type 2 Assessment and Plan (1) Facial cellulitis Status: Acute Category: Medical Code(s): L03.211 - Cellulitis of face (2) History of nephrectomy, right Status: Acute Category: Surgical Code(s): Z90.5 - Acquired absence of kidney (3) Essential hypertension Status: Acute Category: Medical Code(s): I10 - Essential (primary) hypertension (4) Chronic anemia Status: Acute Category: Medical Code(s): D64.9 - Anemia, unspecified (5) Colitis Status: Acute Category: Medical Code(s): K52.9 - Noninfective gastroenteritis and colitis, unspecified (6) [place] (acute kidney injury) Status: Acute Category: Medical Code(s): N17.9 - Acute kidney failure, unspecified (7) Left lower lobe pneumonia Status: Acute Category: Medical Code(s): J18.9 - Pneumonia, unspecified organism (8) Recurrent falls Status: Acute Category: Medical Code(s): R29.6 - Repeated falls (9) MRSA bacteremia Status: Acute Category: Medical Code(s): R78.81 - Bacteremia; B95.62 - Methicillin resistant Staphylococcus aureus infection as the cause of diseases classified elsewhere (10) Pleural effusion Status: Acute Category: Medical Code(s): J90 - Pleural effusion, not elsewhere classified - Assessment and plan all Dx Assessment and Plan for all problems:: BASED ON VANCOMYCIN LEVEL THIS MORNING AND AN IMPROVEMENT IN KIDNEY FUNCTION, RECOMMEND CHANGING VANCOMYCIN TO 1250 MG IV Q24H. PHARMACY WILL CONTINUE TO MONITOR DAILY AND ADJUST APPROPRIATE.
[2020-08-21 14:43] LABS: Mononuclear WBCs,Body Fluid 60 %; Polynuclear WBC,Body Fluid 40 %
--- NOTE | 2020-08-21 16:25 | PC.NURSE ---
Addendum entered by Kaleb Snow RN 08/21/20 19:28: PATIENT COMPLAINED OF GOWN BEING WET ON THE RIGHT SIDE, THIS RN ASSESSED IV AND THORACENTESIS SITE, NO DRAINAGE NOTED. THIS RN CHANGED GOWN AND BEDDING. PATIENT AGAIN COMPLAINED OF GOWN BEING WET ON THE RIGHT SIDE, THIS RN ASSESSED AGAIN AND NO LEAKAGE FROM IV OR THORACENTESIS SITE. THIS RN REQUESTED ANOTHER RN IMPUT. PER [facility] RN, SHE BELIEVES PATIENT IS WEEPING FROM HIS RIGHT ARM. ARM ELEVATED WITH A TREVOR UNDER THE ARM. NEW FINDINGS REPORTED TO NOC RNJANETH. Original Note: PATIENT IS A&O X3, LUNGS WHEEZING HEARD THROUGHOUT, PULSES EQUAL. PATIENT TOLERATED THORACENTESIS WELL. NO NEW CONCERNS DURING THIS RN SHIFT.
--- NOTE | 2020-08-21 18:29 | PC.NURSE ---
INCREASED O2 TO 2L N/C
--- NOTE | 2020-08-21 22:05 | PC.NURSE ---
Asked patient several times if he wanted his pain medication. Both times he stated I don't want it . Charted as patient refused
--- NOTE | 2020-08-22 03:57 | PC.NURSE ---
Pt oriented times four. Patient did not require pain medication this shift. Patient administered ABx times one. Patient rested comfortably and slept well. Will continue to monitor for any acute changes.
[2020-08-22 04:00] VITALS: BP 150/73; PULSE 76; RESP 18; TEMP 36.9; O2SAT 94
[2020-08-22 05:00] VITALS: BMI 25.7
[2020-08-22 07:08] LABS: Basophils % 0.2 % (0.1-2.0); Eosinophils # 0.1 K/mm3 (0.0-0.4); Eosinophils % 0.7 % (0.1-12.0); Hematocrit 28.5 % (42.0-52.0); Hemoglobin 8.8 g/dL (14.1-18.0); Lymphocytes # 0.8 K/mm3 (0.7-4.5); Mean Corpuscular HGB Conc 30.8 g/dL (31.8-35.4); Mean Corpuscular Volume 84.4 fl (80-94); Mean Platelet Volume 8.8 fl (7.4-10.4); Monocytes # 0.9 K/mm3 (0.1-1.0); Monocytes % 7.1 % (1.7-9.3); Platelet Count 454 K/mm3 (142-424); Red Blood Count 3.38 M/mm3 (4.60-6.20); Red Cell Distribution Width 15.7 % (11.5-17.5); White Blood Count 12.8 K/mm3 (4.8-10.8)
[2020-08-22 07:15] LABS: MANUAL DIFFERENTIAL MANUAL DIFFERENTIAL (MANUAL DIFF)
[2020-08-22 07:18] LABS: Alanine Aminotransferase 9 U/L (12-78); Albumin Level 2.6 g/dl (3.5-5.0); Albumin/Globulin Ratio 0.9 (1.1-1.8); Alkaline Phosphatase 107 U/L (38-126); Anion Gap 9.7 mEq/L (5-15); Aspartate Amino Transferase 14 U/L (17-59); Bilirubin,Total 0.6 mg/dl (0.2-1.3); Blood Urea Nitrogen 29 mg/dl (9-20); Calcium 8.1 mg/dl (8.4-10.2); Carbon Dioxide 21 mmol/L (22.0-30.0); Chloride 111 mmol/L (98-107); Creatinine Clearance Estimated 39 mL/min (50-200); Estimated Glomerular Filt Rate 36 ml/min (>60); GFR (African American) 44 ML/MIN (>60); Globulin 2.9 g/dL (1.3-3.2); Glucose 105 mg/dl (74-100); Potassium 4.7 mmoL/L (3.5-5.1); Sodium 137 mmol/L (136-145); Total Protein,Serum 5.5 g/dl (6.3-8.2)
[2020-08-22 07:31] LABS: Eosinophils % 2 % (0-3); Hypochromasia 1+; Lymphocytes % 7 % (10-50); Monocytes % 3 % (2-9); Neutrophils % 88 % (42-76); Platelet Estimate Normal; Total Cells Counted 100
[2020-08-22 08:00] VITALS: BP 145/67; PULSE 76; RESP 21; TEMP 36.7; O2SAT 85
--- NOTE | 2020-08-22 08:42 | HMH.ACPN2 ---
Internal Medicine - PN: Subj *Date: 08/22/20 *Time: 08:42 Interval history: Overall patient is about the same, alert, pleasant, still requiring oxygen. Exam Vital signs and Labs for Last 24 Hours: Temp Pulse Resp BP Pulse Ox 98.1 F 76 21 145/67 H 85 L 08/22/20 08:00 08/22/20 08:00 08/22/20 08:00 08/22/20 08:00 08/22/20 08:00 Laboratory Results - last 24 hr 08/21/20 06:11: Total Counted 100, Neutrophils % (Manual) 87 H, Lymphocytes % (Manual) 6 L, Monocytes % (Manual) 7, Platelet Estimate Normal, Hypochromasia 2+ 08/21/20 07:44: Vancomycin Trough 10.1 H 08/21/20 07:44: Lactate Dehydrogenase 395 08/21/20 12:00: Fluid Source Thoracentesis fluid, Fluid Volume 5, Fluid Appearance Slightly hazy, Fluid RBC (Auto) < 10, Fld Tot Nucleated Cell 747, Fld Polynuclear WBCs % 40, Fld Mononuclear WBCs % 60 08/22/20 06:57: WBC 12.8 H, RBC 3.38 L, Hgb 8.8 L, Hct 28.5 L, MCV 84.4, MCH 26.0 L, MCHC 30.8 L, RDW 15.7, Plt Count 454 H, MPV 8.8, Neut % (Auto) 86.0 H, Lymph % (Auto) 6.0 L, [place] % (Auto) 7.1, Eos % (Auto) 0.7, Baso % (Auto) 0.2, Neut # (Auto) 11.0 H, Lymph # (Auto) 0.8, [place] # (Auto) 0.9, Eos # (Auto) 0.1, Baso # (Auto) 0.0, Total Counted 100, Neutrophils % (Manual) 88 H, Lymphocytes % (Manual) 7 L, Monocytes % (Manual) 3, Eosinophils % (Manual) 2, Platelet Estimate Normal, Hypochromasia 1+ 08/22/20 06:57: Sodium 137, Potassium 4.7, Chloride 111 H, Carbon Dioxide 21 L D, Anion Gap 9.7, BUN 29 H, Creatinine 1.80 H, Estimated Creat Clear 39, Estimated GFR 36 L, Est GFR ( Amer) 44 L, Glucose 105 H, Calcium 8.1 L, Total Bilirubin 0.6, AST 14 L D, ALT 9 L, Alkaline Phosphatase 107, Total Protein 5.5 L, Albumin 2.6 L D, Globulin 2.9, Albumin/Globulin Ratio 0.9 L I & O for Last 24 hours: Intake & Output 08/19/20 08/20/20 08/21/20 08/22/20 11:59 11:59 11:59 11:59 Intake Total 3080 / 3080 3870 / 3870 840 / 840 1097 / 1097 Output Total 500 / 500 Balance 3080 / 3080 3870 / 3870 840 / 840 597 / 597 Weight 177 lb 8 oz 185 lb 5 oz 191 lb 9.6 oz 194 lb 2 oz Microbiology Reports for the Last 24 Hours: Microbiology 08/19/20 09:09 Sputum - Expectorated Sputum Gram Stain - Final 08/19/20 09:09 Sputum - Expectorated Sputum Sputum Culture - Preliminary 08/21/20 12:00 Thoracic Fluid Gram Stain - Final Narrative: Patient is alert, pleasant. Breathing fairly easily. Crackles and rhonchi in both lung bases. Abdomen soft. Heart rate regular. No peripheral edema. Nurses report lots of sweating and arm wetness overnight. Assessment and Plan (1) Facial cellulitis Status: Acute Category: Medical Code(s): L03.211 - Cellulitis of face (2) History of nephrectomy, right Status: Acute Category: Surgical Code(s): Z90.5 - Acquired absence of kidney (3) Essential hypertension Status: Acute Category: Medical Code(s): I10 - Essential (primary) hypertension (4) Chronic anemia Status: Acute Category: Medical Code(s): D64.9 - Anemia, unspecified (5) Colitis Status: Acute Category: Medical Code(s): K52.9 - Noninfective gastroenteritis and colitis, unspecified (6) [place] (acute kidney injury) Status: Acute Category: Medical Code(s): N17.9 - Acute kidney failure, unspecified (7) Left lower lobe pneumonia Status: Acute Category: Medical Code(s): J18.9 - Pneumonia, unspecified organism (8) Recurrent falls Status: Acute Category: Medical Code(s): R29.6 - Repeated falls (9) MRSA bacteremia Status: Acute Category: Medical Code(s): R78.81 - Bacteremia; B95.62 - Methicillin resistant Staphylococcus aureus infection as the cause of diseases classified elsewhere (10) Pleural effusion Status: Acute Category: Medical Code(s): J90 - Pleural effusion, not elsewhere classified - Assessment and plan all Dx Assessment and Plan for all problems:: Overall stable. Thoracentesis Gram stain shows gram-positive cocci. Concerning for parapneumonic eff
[2020-08-22 12:30] LABS: Albumin, Body Fluid 0.5 g/dL (Not Estab.); Glucose, Body Fluid 112 mg/dL (.); LD, Body Fluid 176 IU/L (.); Protein, Body Fluid 1.4 g/dL (.)
[2020-08-22 16:00] VITALS: BP 117/54; PULSE 68; RESP 20; TEMP 36.9; O2SAT 95
--- NOTE | 2020-08-22 16:07 | PC.NURSE ---
PATIENT IS A&O X4, LUNGS ARE DIMINSHED, PULSE ARE EQUAL. PATIENT CONTINUES TO HAVE SOME WEEPING FROM RIGHT ARM. IV BEGAN LEAKING WELL. NEW IV ADMINISTERED, PATIENT TOLERATED WELL. NO OTHER CONCERNS AT THIS TIME.
[2020-08-22 20:00] VITALS: BP 133/62; PULSE 66; RESP 20; TEMP 36.7; O2SAT 95
[2020-08-23 04:00] VITALS: BP 133/71; PULSE 69; RESP 18; TEMP 36.7; O2SAT 94
[2020-08-23 04:59] VITALS: BMI 24.5
[2020-08-23 07:17] LABS: Basophils % 0.2 % (0.1-2.0); Eosinophils # 0.3 K/mm3 (0.0-0.4); Eosinophils % 1.8 % (0.1-12.0); Hematocrit 30.6 % (42.0-52.0); Hemoglobin 9.5 g/dL (14.1-18.0); Lymphocytes # 0.5 K/mm3 (0.7-4.5); Lymphocytes % 3.5 % (10-50); Mean Corpuscular Hemoglobin 26.5 pg (27.0-31.2); Mean Corpuscular Volume 85.3 fl (80-94); Mean Platelet Volume 7.8 fl (7.4-10.4); Monocytes # 0.9 K/mm3 (0.1-1.0); Monocytes % 6.1 % (1.7-9.3); Neutrophils # 13.1 K/mm3 (1.8-7.8); Neutrophils % 88.3 % (37.0-80.0); Platelet Count 403 K/mm3 (142-424); Red Blood Count 3.59 M/mm3 (4.60-6.20); Red Cell Distribution Width 15.6 % (11.5-17.5); White Blood Count 14.8 K/mm3 (4.8-10.8)
[2020-08-23 07:22] LABS: Alanine Aminotransferase 10 U/L (12-78); Albumin Level 2.9 g/dl (3.5-5.0); Albumin/Globulin Ratio 0.9 (1.1-1.8); Alkaline Phosphatase 110 U/L (38-126); Anion Gap 9.1 mEq/L (5-15); Aspartate Amino Transferase 17 U/L (17-59); Bilirubin,Total 0.6 mg/dl (0.2-1.3); Blood Urea Nitrogen 33 mg/dl (9-20); Calcium 8.3 mg/dl (8.4-10.2); Carbon Dioxide 21 mmol/L (22.0-30.0); Chloride 109 mmol/L (98-107); Creatinine Clearance Estimated 37 mL/min (50-200); Estimated Glomerular Filt Rate 34 ml/min (>60); GFR (African American) 41 ML/MIN (>60); Globulin 3.2 g/dL (1.3-3.2); Glucose 115 mg/dl (74-100); Magnesium 1.9 mg/dl (1.6-2.3); Potassium 4.1 mmoL/L (3.5-5.1); Sodium 135 mmol/L (136-145); Total Protein,Serum 6.1 g/dl (6.3-8.2)
[2020-08-23 07:43] LABS: MANUAL DIFFERENTIAL MANUAL DIFFERENTIAL (MANUAL DIFF)
[2020-08-23 08:00] VITALS: BP 113/56; PULSE 75; RESP 18; TEMP 36.6; O2SAT 91
[2020-08-23 08:05] LABS: Burr Cells 1+; Eosinophils % 2 % (0-3); Lymphocytes % 9 % (10-50); Monocytes % 10 % (2-9); Neutrophils % 79 % (42-76); Platelet Estimate Normal; Poikilocytosis 1+; Total Cells Counted 100
[2020-08-23 08:06] LABS: Hypochromasia 1+
--- NOTE | 2020-08-23 08:38 | HMH.ACPN2 ---
Internal Medicine - PN: Subj *Date: 08/23/20 *Time: 08:38 Interval history: Patient did well with Lasix yesterday. Output over 1 L. Seems to be breathing a little easier, appetite is better. Exam Vital signs and Labs for Last 24 Hours: Temp Pulse Resp BP Pulse Ox 97.8 F 75 18 113/56 L 91 L 08/23/20 08:00 08/23/20 08:00 08/23/20 08:00 08/23/20 08:00 08/23/20 08:00 Laboratory Results - last 24 hr 08/21/20 12:00: Fluid Glucose 112, Fluid Total Protein 1.4, Fluid Albumin 0.5, Fluid LDH 176 08/23/20 07:00: WBC 14.8 H, RBC 3.59 L, Hgb 9.5 L, Hct 30.6 L, MCV 85.3, MCH 26.5 L, MCHC 31.0 L, RDW 15.6, Plt Count 403, MPV 7.8, Neut % (Auto) 88.3 H, Lymph % (Auto) 3.5 L, [place] % (Auto) 6.1, Eos % (Auto) 1.8, Baso % (Auto) 0.2, Neut # (Auto) 13.1 H, Lymph # (Auto) 0.5 L, [place] # (Auto) 0.9, Eos # (Auto) 0.3, Baso # (Auto) 0.0, Total Counted 100, Neutrophils % (Manual) 79 H, Lymphocytes % (Manual) 9 L, Monocytes % (Manual) 10 H, Eosinophils % (Manual) 2, Platelet Estimate Normal, Hypochromasia 1+, Poikilocytosis 1+, [place] Cells 1+ 08/23/20 07:00: Sodium 135 L, Potassium 4.1, Chloride 109 H, Carbon Dioxide 21 L, Anion Gap 9.1, BUN 33 H, Creatinine 1.90 H, Estimated Creat Clear 37, Estimated GFR 34 L, Est GFR ( Amer) 41 L, Glucose 115 H, Calcium 8.3 L, Magnesium 1.9, Total Bilirubin 0.6, AST 17, ALT 10 L, Alkaline Phosphatase 110, Total Protein 6.1 L, Albumin 2.9 L D, Globulin 3.2, Albumin/Globulin Ratio 0.9 L I & O for Last 24 hours: Intake & Output 08/20/20 08/21/20 08/22/20 08/23/20 11:59 11:59 11:59 11:59 Intake Total 3870 / 3870 840 / 840 1337 / 1337 1204 / 1204 Output Total 800 / 1100 1535 / 1535 Balance 3870 / 3870 840 / 840 537 / 237 -331 / -331 Weight 185 lb 5 oz 191 lb 9.6 oz 194 lb 2 oz 194 lb Microbiology Reports for the Last 24 Hours: Microbiology 08/19/20 09:09 Sputum - Expectorated Sputum Gram Stain - Final 08/19/20 09:09 Sputum - Expectorated Sputum Sputum Culture - Preliminary Gram Positive Cocci 08/21/20 12:00 Thoracic Fluid Gram Stain - Final 08/21/20 12:00 Thoracic Fluid Body Fluid Culture - Preliminary NO GROWTH AFTER 24 HOURS 08/20/20 08:46 Blood Blood Culture - Preliminary NO GROWTH AFTER 48 HOURS 08/20/20 08:56 Blood Blood Culture - Preliminary NO GROWTH AFTER 48 HOURS Narrative: Patient sitting in the chair, using oxygen sort of as needed. Facial rash is almost gone, just a trace of redness around the nostrils, vastly improved. Lungs have better air entry, continues to have bibasilar rhonchi but good air movement. Heart rate regular. Abdomen soft, extremities without edema. Abrasion on the superficial surface of the right wrist is healing. Of note daughter reports that this was erythematous and draining some yellow purulent drainage last week. Assessment and Plan (1) Facial cellulitis Status: Acute Category: Medical Code(s): L03.211 - Cellulitis of face (2) History of nephrectomy, right Status: Acute Category: Surgical Code(s): Z90.5 - Acquired absence of kidney (3) Essential hypertension Status: Acute Category: Medical Code(s): I10 - Essential (primary) hypertension (4) Chronic anemia Status: Acute Category: Medical Code(s): D64.9 - Anemia, unspecified (5) Colitis Status: Acute Category: Medical Code(s): K52.9 - Noninfective gastroenteritis and colitis, unspecified (6) [place] (acute kidney injury) Status: Acute Category: Medical Code(s): N17.9 - Acute kidney failure, unspecified (7) Left lower lobe pneumonia Status: Acute Category: Medical Code(s): J18.9 - Pneumonia, unspecified organism (8) Recurrent falls Status: Acute Category: Medical Code(s): R29.6 - Repeated falls (9) MRSA bacteremia Status: Acute Category: Medical Code(s): R78.81 - Bacteremia; B95.62 - [place]
[2020-08-23 15:36] VITALS: BP 129/57; PULSE 70; RESP 19; TEMP 36.6; O2SAT 94
--- NOTE | 2020-08-23 17:17 | PC.NURSE ---
PATIENT IS A& O X3, LUNGS ARE CLEARER THAN DAY BEFORE. OCCASIONAL WHEEZING HEARD. PATIENT TOLERATED LASIX ADMINISTRATION WELL. 800ML OUPUT THUS FAR. PATIENT CONTINUES TO SPIT UP CREAM AND BROWN IN COLOR PHLEGM. NO NEW NEEDS OR CONCERNS AT THIS TIME.
[2020-08-23 18:14] VITALS: O2SAT 89
[2020-08-23 19:59] VITALS: BP 135/60; PULSE 72; RESP 19; TEMP 36.6; O2SAT 90
[2020-08-23 20:00] VITALS: O2SAT 90
--- NOTE | 2020-08-23 20:16 | PC.NURSE ---
He is AUGUSTINE but is A&Ox3. He reports a productive cough with different colored sputum. He denies SOA stating I feel pretty good today. He has dry skin on BLE. Reports his last BM was 08/21. He has BLE with 2+ pitting edema. Safety is set with call light in place. He continues with 2LPM n/c. He is in contact precautions r/t MRSA.
[2020-08-24] VITALS (13 sets, daily range): BP systolic 126–160; BP diastolic 54–90; PULSE 72–91; RESP 19–22; TEMP 36.4–37.3; O2SAT 80–93; BMI 24.5
[2020-08-24 06:11] LABS: Basophils % 0.1 % (0.1-2.0); Eosinophils # 0.2 K/mm3 (0.0-0.4); Eosinophils % 1.3 % (0.1-12.0); Hemoglobin 8.8 g/dL (14.1-18.0); Lymphocytes # 0.7 K/mm3 (0.7-4.5); Lymphocytes % 4.1 % (10-50); Mean Corpuscular HGB Conc 30.9 g/dL (31.8-35.4); Mean Corpuscular Hemoglobin 26.2 pg (27.0-31.2); Mean Corpuscular Volume 84.8 fl (80-94); Mean Platelet Volume 7.5 fl (7.4-10.4); Monocytes # 0.8 K/mm3 (0.1-1.0); Monocytes % 4.7 % (1.7-9.3); Neutrophils # 14.8 K/mm3 (1.8-7.8); Neutrophils % 89.7 % (37.0-80.0); Platelet Count 461 K/mm3 (142-424); Red Blood Count 3.36 M/mm3 (4.60-6.20); Red Cell Distribution Width 15.8 % (11.5-17.5); White Blood Count 16.5 K/mm3 (4.8-10.8)
[2020-08-24 06:15] LABS: Hematocrit 28.5 % (42.0-52.0)
[2020-08-24 06:17] LABS: MANUAL DIFFERENTIAL MANUAL DIFFERENTIAL (MANUAL DIFF)
[2020-08-24 06:21] LABS: Blood Urea Nitrogen 33 mg/dl (9-20); Calcium 8.1 mg/dl (8.4-10.2); Carbon Dioxide 20 mmol/L (22.0-30.0); Chloride 108 mmol/L (98-107); Creatinine Clearance Estimated 33 mL/min (50-200); Estimated Glomerular Filt Rate 32 ml/min (>60); GFR (African American) 39 ML/MIN (>60); Glucose 105 mg/dl (74-100); Sodium 134 mmol/L (136-145)
[2020-08-24 06:59] LABS: Lymphocytes % 10 % (10-50); Monocytes % 4 % (2-9); Neutrophils % 86 % (42-76); Platelet Estimate Normal; RBC Morphology Normal; Total Cells Counted 100
--- NOTE | 2020-08-24 07:00 | XR_ITS ---
PROCEDURE: XR CHEST 2V CLINICAL HISTORY: f/u effusion COMPARISON: 08/21/2020 FINDINGS: The cardiomediastinal silhouette and pulmonary vascularity are within normal limits. Diffuse upper lobe pneumonia once again noted. There are small bilateral pleural effusions not significantly changed. Atelectatic changes present in the right infrahilar region. No evidence of pneumothorax. No acute bony abnormalities. IMPRESSION: No change diffuse bilateral upper lobe pneumonia and small bilateral pleural effusions. Dictated by: Aiden Tobias MD 08/24/2020 08:38 Aiden Tobias MD in [place] 08/24/2020 08:38
--- NOTE | 2020-08-24 07:38 | HMH.ACPN2 ---
Internal Medicine - PN: Subj *Date: 08/24/20 *Time: 07:38 Interval history: Patient diuresed fairly well through the night. Chest x-ray has not yet been done unfortunately. Patient is sitting up on his chair eating breakfast. Room air O2 saturation 85% Exam Vital signs and Labs for Last 24 Hours: Temp Pulse Resp BP Pulse Ox 97.8 F 72 19 126/54 L 93 L 08/24/20 03:58 08/24/20 03:58 08/24/20 03:58 08/24/20 03:58 08/24/20 03:58 Laboratory Results - last 24 hr 08/23/20 07:00: WBC 14.8 H, RBC 3.59 L, Hgb 9.5 L, Hct 30.6 L, MCV 85.3, MCH 26.5 L, MCHC 31.0 L, RDW 15.6, Plt Count 403, MPV 7.8, Neut % (Auto) 88.3 H, Lymph % (Auto) 3.5 L, [place] % (Auto) 6.1, Eos % (Auto) 1.8, Baso % (Auto) 0.2, Neut # (Auto) 13.1 H, Lymph # (Auto) 0.5 L, [place] # (Auto) 0.9, Eos # (Auto) 0.3, Baso # (Auto) 0.0, Total Counted 100, Neutrophils % (Manual) 79 H, Lymphocytes % (Manual) 9 L, Monocytes % (Manual) 10 H, Eosinophils % (Manual) 2, Platelet Estimate Normal, Hypochromasia 1+, Poikilocytosis 1+, [place] Cells 1+ 08/24/20 05:56: WBC 16.5 H, RBC 3.36 L, Hgb 8.8 L, Hct 28.5 L, MCV 84.8, MCH 26.2 L, MCHC 30.9 L, RDW 15.8, Plt Count 461 H, MPV 7.5, Neut % (Auto) 89.7 H, Lymph % (Auto) 4.1 L, [place] % (Auto) 4.7, Eos % (Auto) 1.3, Baso % (Auto) 0.1, Neut # (Auto) 14.8 H, Lymph # (Auto) 0.7, [place] # (Auto) 0.8, Eos # (Auto) 0.2, Baso # (Auto) 0.0, Total Counted 100, Neutrophils % (Manual) 86 H, Lymphocytes % (Manual) 10, Monocytes % (Manual) 4, Platelet Estimate Normal, RBC Morphology Normal 08/24/20 05:56: Sodium 134 L, Potassium 4.0, Chloride 108 H, Carbon Dioxide 20 L, Anion Gap 10.0, BUN 33 H, Creatinine 2.00 H, Estimated Creat Clear 33, Estimated GFR 32 L, Est GFR ( Amer) 39 L, Glucose 105 H, Calcium 8.1 L I & O for Last 24 hours: Intake & Output 08/21/20 08/22/20 08/23/20 08/24/20 11:59 11:59 11:59 11:59 Intake Total 840 / 840 1337 / 1337 1204 / 1204 770 / 770 Output Total 800 / 1100 1610 / 1610 1425 / 1425 Balance 840 / 840 537 / 237 -406 / -406 -655 / -655 Weight 191 lb 9.6 oz 194 lb 2 oz 185 lb 6 oz 185 lb 4 oz Microbiology Reports for the Last 24 Hours: Microbiology 08/19/20 09:09 Sputum - Expectorated Sputum Gram Stain - Final 08/19/20 09:09 Sputum - Expectorated Sputum Sputum Culture - Final Staphylococcus aureus 08/21/20 12:00 Thoracic Fluid Gram Stain - Final 08/21/20 12:00 Thoracic Fluid Body Fluid Culture - Preliminary NO GROWTH AFTER 48 HOURS Narrative: Patient up in the chair eating breakfast. No distress. States he feels better. Lungs are clear. Good air movement in the upper lung lee. Rhonchi are clear in the lower lee. Heart rate regular. No visible edema. Facial cellulitis is vastly improved. Neurologically intact. Assessment and Plan (1) Facial cellulitis Status: Acute Category: Medical Code(s): L03.211 - Cellulitis of face (2) History of nephrectomy, right Status: Acute Category: Surgical Code(s): Z90.5 - Acquired absence of kidney (3) Essential hypertension Status: Acute Category: Medical Code(s): I10 - Essential (primary) hypertension (4) Chronic anemia Status: Acute Category: Medical Code(s): D64.9 - Anemia, unspecified (5) Colitis Status: Acute Category: Medical Code(s): K52.9 - Noninfective gastroenteritis and colitis, unspecified (6) PEACE (acute kidney injury) Status: Acute Category: Medical Code(s): N17.9 - Acute kidney failure, unspecified (7) Left lower lobe pneumonia Status: Acute Category: Medical Code(s): J18.9 - Pneumonia, unspecified organism (8) Recurrent falls Status: Acute Category: Medical Code(s): R29.6 - Repeated falls (9) MRSA bacteremia Status: Acute Category: Medical Code(s): R78.81 - Bacteremia; B95.62 - Methicillin resistant Staphylococcus aureus infection as the cause of diseases classified elsewhere (10) Ple
--- NOTE | 2020-08-24 09:57 | HMH.PULMPN ---
Internal Medicine - PN: Subj *Date: 08/24/20 *Time: 09:57 Interval history: No acute respiratory vents overnight. Patient admits improvement in his respiratory distress Exam - Constitutional Constitutional:: Present: no acute distress, comfortable - HENMT Exam HENMT: Present: normocephalic, atraumatic - Eye Exam Eyes:: Present: normal appearance both eyes and related structures - Respiratory Exam Respiratory:: Present: able to speak in complete sentences, decreased breath sounds, crackles - Cardiovascular Exam Cardiac:: Present: S1, S2 - GI Exam GI:: Present: soft, no hepatosplenomegaly - Skin Exam Skin: Present: warm, no rash - Neurological Exam Neurological: Present: alert, awake - Extremities Exam Extremities: Present: no cyanosis, no clubbing, edema - Psychiatric Exam Psychiatric: Present: normal affect Assessment and Plan (1) Facial cellulitis Status: Acute Category: Medical Code(s): L03.211 - Cellulitis of face (2) History of nephrectomy, right Status: Acute Category: Surgical Code(s): Z90.5 - Acquired absence of kidney (3) Essential hypertension Status: Acute Category: Medical Code(s): I10 - Essential (primary) hypertension (4) Chronic anemia Status: Acute Category: Medical Code(s): D64.9 - Anemia, unspecified (5) Colitis Status: Acute Category: Medical Code(s): K52.9 - Noninfective gastroenteritis and colitis, unspecified (6) PEACE (acute kidney injury) Status: Acute Category: Medical Code(s): N17.9 - Acute kidney failure, unspecified (7) Left lower lobe pneumonia Status: Acute Category: Medical Code(s): J18.9 - Pneumonia, unspecified organism (8) Recurrent falls Status: Acute Category: Medical Code(s): R29.6 - Repeated falls (9) MRSA bacteremia Status: Acute Category: Medical Code(s): R78.81 - Bacteremia; B95.62 - Methicillin resistant Staphylococcus aureus infection as the cause of diseases classified elsewhere (10) Pleural effusion Status: Acute Category: Medical Code(s): J90 - Pleural effusion, not elsewhere classified - Assessment and plan all Dx Assessment and Plan for all problems:: #Acute hypoxic respiratory failure: #MRSA pneumonia: #MRSA bacteremia: #Bilateral pleural effusions: 84-year-old male with no prior respiratory complaints not on any oxygen at home, not using any inhalers presented to the hospital complaining of cough diarrhea weakness also concerning for facial cellulitis and eventually admitted to the hospital and found to be bacteremic with MRSA. Diagnostic thoracentesis appeared to be transudate effusion however Gram stain positive with no growth so far. CT chest noted bilateral diffuse airspace disease, and effusions. Blood cultures from 08/20 no growth so far. Patient volume status did not show any improvement with 3+ lower extremity edema along with bilateral pleural effusions on his chest x-ray from today unchanged from prior. This along with worsening leukocytosis benefits of therapeutic thoracentesis outweigh the risks. Plan: -Continue vancomycin for a total of 14 days and cefepime for 7 days -Bilateral therapeutic thoracentesis. 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 Plan: -Follow with repeat CT chest without contrast in 4 weeks. -Recommend follow-up with patient's oncologist #Thank you for involving pulmonary in this patient. We will continue to follow. Please call with any questions or concerns.
--- NOTE | 2020-08-24 10:04 | US_ITS ---
PROCEDURE: US THORACENTESIS CLINICAL INDICATION: Left Pleural Effusion COMPARISON: No exams were available for comparison TECHNIQUE: Informed consent was obtain prior to procedure. After appropriate Time out, under aseptic conditions and local anesthesia with 1% buffered lidocaine using sonographic guidance a 6 Slovenian Jacu-N-Mmadfdkk catheter was inserted into the lower posterior hemithorax. Approximately 1060 mL of serous fluid was drained. The patient tolerated the procedure well and left the radiology suite in stable condition. Post thoracentesis chest x-ray was obtained. There was a question of a tiny left apical pneumothorax. Follow-up study will be obtained. FINDINGS: Medium-sized left pleural effusion. IMPRESSION: Successful sonographic guided left thoracentesis.. Dictated by: Aiden Tobias MD 08/24/2020 12:57 Aiden Tobias MD in [place] 08/24/2020 12:57
--- NOTE | 2020-08-24 11:10 | XR_ITS ---
PROCEDURE: XR CHEST 2V CLINICAL HISTORY: POST THORACENTESIS COMPARISON: CR XR CHEST 2V from 08/20/2020 CR XR CHEST 2V from 08/21/[address] CHEST WO CON from 08/21/2020 CR XR CHEST 2V from 08/24/2020 FINDINGS: The study is obtained in expiration. Diffuse bilateral upper lobe pneumonia once again noted. Status post left-sided thoracentesis with interval decrease in left-sided pleural effusion. There is a questionable tiny apical component of the pneumothorax. This however is questionable and follow-up is suggested. Right-sided pleural effusion is unchanged. IMPRESSION: No change diffuse bilateral pneumonia. Status post left-sided thoracentesis with questionable tiny apical pneumothorax. Follow-up exam suggested in 4 hours. Dictated by: Aiden Tobias MD 08/24/2020 11:30 Aiden Tobias MD in [place] 08/24/2020 11:30
[2020-08-24 12:52] LABS: RBC,Body Fluid < 10 cells/uL (< 10 X 10^3); TNC,Body Fluid 393 cells/uL (< 1000)
[2020-08-24 12:57] LABS: Vancomycin,Trough 14.3 ug/mL (5.0-10.0)
--- NOTE | 2020-08-24 13:10 | HMH.PHACONS ---
- Pharmacy Consult Date: 08/24/20 Time: 13:10 Referring provider: DR. ANGEL Reason for Consult:: VANCOMYCIN TROUGH LEVEL Allergies and ADEs:: Allergies Allergy/AdvReac Type Severity Reaction Status Date / Time No Known Allergies Allergy Verified 08/17/20 12:41 Home Medications:: Home Medications Medication Instructions Recorded Confirmed Type Buspirone HCl [Buspar 10mg 10 mg PO BID 08/17/20 08/17/20 History tablet] Fluoxetine HCl [Prozac] 40 mg PO BID 08/17/20 08/17/20 History Gabapentin 600 mg PO BID 08/17/20 08/17/20 History Hydrocodone/Acetaminophen 1 each PO TID 08/17/20 08/18/20 History [Hydrocodone-Acetamin 7.5-325] Lansoprazole 30 mg PO DAILY 08/17/20 08/17/20 History Ropinirole HCl 1 mg PO BID 08/17/20 08/17/20 History carvediloL [Carvedilol 3.125mg Tab] 3.125 mg PO BID 08/17/20 08/17/20 History Height: 1.85 m Weight: 84.028 kg Laboratory Results:: Laboratory Results - last 24 hr 08/24/20 05:56: WBC 16.5 H, RBC 3.36 L, Hgb 8.8 L, Hct 28.5 L, MCV 84.8, MCH 26.2 L, MCHC 30.9 L, RDW 15.8, Plt Count 461 H, MPV 7.5, Neut % (Auto) 89.7 H, Lymph % (Auto) 4.1 L, [place] % (Auto) 4.7, Eos % (Auto) 1.3, Baso % (Auto) 0.1, Neut # (Auto) 14.8 H, Lymph # (Auto) 0.7, [place] # (Auto) 0.8, Eos # (Auto) 0.2, Baso # (Auto) 0.0, Total Counted 100, Neutrophils % (Manual) 86 H, Lymphocytes % (Manual) 10, Monocytes % (Manual) 4, Platelet Estimate Normal, RBC Morphology Normal 08/24/20 05:56: Sodium 134 L, Potassium 4.0, Chloride 108 H, Carbon Dioxide 20 L, Anion Gap 10.0, BUN 33 H, Creatinine 2.00 H, Estimated Creat Clear 33, Estimated GFR 32 L, Est GFR ( Amer) 39 L, Glucose 105 H, Calcium 8.1 L 08/24/20 11:15: Fluid RBC (Auto) < 10, Fld Tot Nucleated Cell 393 08/24/20 12:19: Vancomycin Trough 14.3 H Medical History: Reports:: Cancer Denies:: Diabetes Mellitus Type 1, Diabetes Mellitus Type 2 Assessment and Plan (1) Facial cellulitis Status: Acute Category: Medical Code(s): L03.211 - Cellulitis of face (2) History of nephrectomy, right Status: Acute Category: Surgical Code(s): Z90.5 - Acquired absence of kidney (3) Essential hypertension Status: Acute Category: Medical Code(s): I10 - Essential (primary) hypertension (4) Chronic anemia Status: Acute Category: Medical Code(s): D64.9 - Anemia, unspecified (5) Colitis Status: Acute Category: Medical Code(s): K52.9 - Noninfective gastroenteritis and colitis, unspecified (6) PEACE (acute kidney injury) Status: Acute Category: Medical Code(s): N17.9 - Acute kidney failure, unspecified (7) Left lower lobe pneumonia Status: Acute Category: Medical Code(s): J18.9 - Pneumonia, unspecified organism (8) Recurrent falls Status: Acute Category: Medical Code(s): R29.6 - Repeated falls (9) MRSA bacteremia Status: Acute Category: Medical Code(s): R78.81 - Bacteremia; B95.62 - Methicillin resistant Staphylococcus aureus infection as the cause of diseases classified elsewhere (10) Pleural effusion Status: Acute Category: Medical Code(s): J90 - Pleural effusion, not elsewhere classified - Assessment and plan all Dx Assessment and Plan for all problems:: BASED ON PATIENT FACTORS AND VANCOMYCIN TROUGH LEVEL OF 14.3, RECOMMEND CONTINUING CURRENT DOSE OF 1,250MG EVER 24 HOURS. PHARMACY WILL CONTINUE TO MONITOR AND WILL ADJUST DOSE APPROPRIATE. -AMI MONTANAD
[2020-08-24 16:04] LABS: Appearance,Body Fld. Normal; Source, Body Fld. Thoracentesis Fluid
[2020-08-24 16:05] LABS: Volume,Body Fld. 3 mL
--- NOTE | 2020-08-24 16:30 | XR_ITS ---
PROCEDURE: XR CHEST 2V CLINICAL HISTORY: follow up possible pneumothorax COMPARISON: CR XR CHEST 2V from 08/21/[address] CHEST WO CON from 08/21/2020 CR XR CHEST 2V from 08/24/2020 CR XR CHEST 2V from 08/24/2020 FINDINGS: Unremarkable cardiovascular structures. There remains diffuse bilateral upper lobe pneumonia and pneumonia in the left midlung. There is no evidence of pneumothorax. Atelectatic changes are present in the right infrahilar region. Small right pleural effusion is noted. No acute bony abnormalities. IMPRESSION: Status post left-sided thoracentesis. No evidence of pneumothorax. No change diffuse bilateral pneumonia and small right pleural effusion Dictated by: Aiden Tobias MD 08/24/2020 16:39 Aiden Tobias MD in [place] 08/24/2020 16:39
[2020-08-24 16:33] LABS: Mononuclear WBCs,Body Fluid 86 %; Polynuclear WBC,Body Fluid 14 %
--- NOTE | 2020-08-24 17:12 | PC.NURSE ---
Pt has been pleasant this shift. Pt has been between 3-4 LNC this shift w/ o2 sats between 88-91%. Pt did request a duoneb this shift, it was administered per JUN. Pt lost IV access this shift, new PIV placed in LFA. Pt has ambulated in his room w/ walker and standby assist this shift. Daughter has remained at bedside this afternoon. No other acute changes or complaints.
[2020-08-25] VITALS (12 sets, daily range): BP systolic 109–148; BP diastolic 46–73; PULSE 63–78; RESP 16–18; TEMP 36.6–37.2; O2SAT 88–94; BMI 25.0
--- NOTE | 2020-08-25 00:53 | PC.NURSE ---
PT. HAS NOT HAD A BM. NO C/O N/V/D, DIZZINESS OR PAIN. HAS C/O L QUAD ABD TENDERNESS. REMAINS ON 4L NC, C/O SOA WITH MOVEMENT. PT. RESTING IN BED WITH EYES CLOSED AT THIS TIME. REPORT GIVEN TO Teresa LEMON RN.
[2020-08-25 04:14] LABS: pH, Body Fluid 7.6 (Not Estab.)
--- NOTE | 2020-08-25 07:21 | HMH.DCSUM ---
General - General Admission date:: 08/17/20 Discharge date: 08/25/20 HPI HPI: 84 yo M with worsening cough, diarrhea, weakness, and concern for dehydration, for a few days. Worsening overall fo ra few weeks though per daughters report. She noted redness and swelling of nose and lips 2-3 days ago. Presented to the ER last night with his daughter after developing a fever yesterday to greater than 100. He has stopped drinking and eating well per her report. On presentation to the ER he was noted to have PEACE, leukocytosis, and anemia. Daughter concern for infection of his face given the swelling of his upper lip. CT of patient's abdomen and pelvis showed left lower lobe consolidation as well as bowel loops with air-fluid levels. Started on Zosyn, admitted to medicine for further management. On labs this morning, patient's white cell count has worsened. He is remained afebrile however and hemodynamically stable. Stable on room air. Continues to have swelling of his face but states that pressure/pain is somewhat better today. Of note, Hx significant for hypertension, cancer status post nephrectomy of right kidney in April of this year. Daughter reports right lower lobe pneumonia a month ago treated as an outpatient with some improvement clinically. Hospital Course Hospital Course: Mr. Roman is an 84-year-old male admitted for facial cellulitis, weakness and diarrhea, acute on chronic kidney injury, and sepsis. Was found to be bacteremic with MRSA as well as found to have new oxygen requirement soon after discharge with development of pneumonia. Sputum positive for MRSA as well. Patient's worsening respiratory decline led to a pulmonology consult. We appreciate the recommendations and assistance in the care of this patient. Antibiotics were broadened to vancomycin and cefepime to cover for MRSA pneumonia. Unfortunately patient developed pleural effusions necessitating thoracentesis. Diagnostic thoracentesis appeared to be transudate effusion however Gram stain positive with no growth as of day of discharge (greater than 72 hours). Additionally, CT chest noted bilateral diffuse airspace disease, and effusions. Repeat blood cultures obtained 08/20 have had no growth showing clearance of MRSA bacteremia. -Facial cellulitis more or less resolved at time of discharge. -Patient is completed 7 days of cefepime as of today. Plan for total of 14 days of antibiotics to cover MRSA from time of clear blood culture. Antibiotics day 1 begins 08/20. Will complete 14 days total on 09/02. Will transition oral therapy with doxycycline given kidney injury (Bactrim contraindicated), culture sensitivities, and ease of administration -Still awaiting pleural fluid cytology at time of discharge, plan to follow this up in the outpatient setting. -Patient continues to have hypoxemic respiratory failure. Meeting criteria for home oxygen, room air saturations 08/2476% -We will continue nebulizers at discharge, nebulizer ordered for home use -Patient will need repeat CT of his chest in 4 weeks. -We will plan to follow-up with oncologist after that time pending resolution or persistence of lung lesions which are concerning for infectious, inflammatory, or metastatic disease. On day of discharge, patient examined. Ambulating with the use of a walker and minimal assistance. We will set patient up with home health for physical therapy. Denies chest pain, nausea, vomiting, diarrhea. Still complains of shortness of breath. Patient is alert and oriented x3. Has good insight. Objective Vital signs: Temp Pulse Resp BP Pulse Ox 99.0 F 68 18 110/56 L 93 L 08/25/20 04:00 08/25/20 04:00 08/25/20 04:00 08/25/20 04:00 08/25/20 04:00 no acute distress, average body habitus, cooperative - *Routine HEENT Exam Head: Present: normocephalic Eye: Present: EOMI, PERRL ENT: Present: mucous membranes moist - *Routine Neck Exam Present: supple
[2020-08-25 07:25] LABS: Basophils % 0.1 % (0.1-2.0); Eosinophils # 0.1 K/mm3 (0.0-0.4); Eosinophils % 0.3 % (0.1-12.0); Hematocrit 28.1 % (42.0-52.0); Hemoglobin 8.8 g/dL (14.1-18.0); Lymphocytes # 0.7 K/mm3 (0.7-4.5); Lymphocytes % 3.7 % (10-50); Mean Corpuscular HGB Conc 31.3 g/dL (31.8-35.4); Mean Corpuscular Hemoglobin 26.1 pg (27.0-31.2); Mean Corpuscular Volume 83.2 fl (80-94); Mean Platelet Volume 7.9 fl (7.4-10.4); Monocytes # 0.8 K/mm3 (0.1-1.0); Monocytes % 4.7 % (1.7-9.3); Neutrophils # 15.9 K/mm3 (1.8-7.8); Neutrophils % 91.3 % (37.0-80.0); Platelet Count 491 K/mm3 (142-424); Red Blood Count 3.37 M/mm3 (4.60-6.20); Red Cell Distribution Width 15.8 % (11.5-17.5); White Blood Count 17.5 K/mm3 (4.8-10.8)
[2020-08-25 07:28] LABS: MANUAL DIFFERENTIAL MANUAL DIFFERENTIAL (MANUAL DIFF)
[2020-08-25 07:30] LABS: Anion Gap 11.2 mEq/L (5-15); Blood Urea Nitrogen 35 mg/dl (9-20); Calcium 8.2 mg/dl (8.4-10.2); Carbon Dioxide 22 mmol/L (22.0-30.0); Chloride 107 mmol/L (98-107); Creatinine Clearance Estimated 32 mL/min (50-200); Estimated Glomerular Filt Rate 30 ml/min (>60); GFR (African American) 37 ML/MIN (>60); Glucose 105 mg/dl (74-100); Potassium 4.2 mmoL/L (3.5-5.1); Sodium 136 mmol/L (136-145)
[2020-08-25 09:19] LABS: Lymphocytes % 6 % (10-50); Monocytes % 3 % (2-9); Neutrophils % 91 % (42-76); Platelet Estimate Normal; RBC Morphology Normal; Total Cells Counted 100
--- NOTE | 2020-08-25 09:53 | US_ITS ---
PROCEDURE: US THORACENTESIS CLINICAL INDICATION: Right pleural effusion COMPARISON: No exams were available for comparison TECHNIQUE: Informed consent was obtain prior to procedure. After appropriate Time out, under aseptic conditions and local anesthesia with 1% buffered lidocaine using sonographic guidance a 6 Uzbek Kgaz-M-Kzeavptf catheter was inserted into the right posterior hemithorax via the intercostal approach inferiorly. Approximately 1300 mL of serous ous fluid was drained. The patient tolerated the procedure well and left the radiology suite in stable condition. Post thoracentesis radiograph shows no evidence of pneumothorax. FINDINGS: Large right pleural effusion initially. Effusion was barely visible toward the end the procedure IMPRESSION: Successful sonographic guided right-sided thoracentesis without complication. Dictated by: Aiden Tobias MD 08/25/2020 12:50 Aiden Tobias MD in [place] 08/25/2020 12:50
--- NOTE | 2020-08-25 10:08 | SW/DCPLANNER ---
Addendum entered by Miladis Richmond 08/25/20 11:46: Ida with [facility] has confirmed that patient information/order has been received and services will begin for this patient this week. Addendum entered by Miladis Richmond 08/25/20 11:27: Physical address is [address] [place] [address] in [place]. Addendum entered by [facility] 08/25/20 11:22: Family has also requested a wheelchair at this time. [facility] has stated that they will deliver home O2/portable/nebulizer machine/wheelchair. Original Note: The plan is for this patient to discharge home today. Home health services has been ordered for this patient along with home O2/portable/nebulizer machine. Patients daughter stated they would like to use [facility] for home health services and [employer] for all DME. I will follow up with [facility] for home health and [employer] once patient information/order is reviewed.
--- NOTE | 2020-08-25 11:16 | XR_ITS ---
PROCEDURE: XR CHEST 2V CLINICAL HISTORY: POST THOROCENTESIS COMPARISON: CT CT CHEST WO CON from 08/21/2020 CR XR CHEST 2V from 08/24/2020 CR XR CHEST 2V from 08/24/2020 CR XR CHEST 2V from 08/24/2020 FINDINGS: Status post right-sided thoracentesis with interval decrease in size of the right effusion. No evidence of pneumothorax on either side. There is diffuse bilateral alveolar opacification in the left upper and mid lung zone and in the right upper lobe. Atelectatic changes are present in the right midlung may be slightly improved. No acute bony abnormalities. IMPRESSION: No evidence of pneumothorax status post right-sided thoracentesis. Bilateral pneumonia with atelectatic change in the right midlung Dictated by: Aiden Tobias MD 08/25/2020 11:54 Aiden Tobias MD in [place] 08/25/2020 11:54
--- NOTE | 2020-08-25 11:26 | PC.NURSE ---
PATIENT WILL NEED A WHEELCHAIR RATHER THAN A CANE OR WALKER DUE TO MOBILITY ISSUES.
--- NOTE | 2020-08-25 11:34 | HMH.PULMPN ---
Internal Medicine - PN: Subj *Date: 08/25/20 *Time: 11:42 Interval history: No acute respiratory vents overnight patient had a left-sided thoracentesis performed today. Exam - Constitutional Constitutional:: Present: no acute distress, comfortable - HENMT Exam HENMT: Present: normocephalic, atraumatic - Eye Exam Eyes:: Present: normal appearance both eyes and related structures - Neck Exam Neck:: Present: normal visual inspection - Respiratory Exam Respiratory:: Present: able to speak in complete sentences, no respiratory distress, normal respiratory effort, decreased breath sounds, crackles. Absent: wheezing - Cardiovascular Exam Cardiac:: Present: S1, S2 - GI Exam GI:: Present: soft - Skin Exam Skin: Present: warm, no rash - Neurological Exam Neurological: Present: alert, awake, normal cognition - Extremities Exam Extremities: Present: no cyanosis, no clubbing, edema Assessment and Plan (1) Acute hypoxemic respiratory failure Status: Acute Category: Medical Code(s): J96.01 - Acute respiratory failure with hypoxia (2) Facial cellulitis Status: Resolved Category: Medical Code(s): L03.211 - Cellulitis of face (3) History of nephrectomy, right Status: Chronic Category: Surgical Code(s): Z90.5 - Acquired absence of kidney (4) Essential hypertension Status: Chronic Category: Medical Code(s): I10 - Essential (primary) hypertension (5) Chronic anemia Status: Chronic Category: Medical Code(s): D64.9 - Anemia, unspecified (6) Colitis Status: Acute Category: Medical Code(s): K52.9 - Noninfective gastroenteritis and colitis, unspecified (7) PEACE (acute kidney injury) Status: Acute Category: Medical Code(s): N17.9 - Acute kidney failure, unspecified (8) Left lower lobe pneumonia Status: Acute Category: Medical Code(s): J18.9 - Pneumonia, unspecified organism (9) Recurrent falls Status: Acute Category: Medical Code(s): R29.6 - Repeated falls (10) MRSA bacteremia Status: Acute Category: Medical Code(s): R78.81 - Bacteremia; B95.62 - Methicillin resistant Staphylococcus aureus infection as the cause of diseases classified elsewhere (11) Pleural effusion Status: Acute Category: Medical Code(s): J90 - Pleural effusion, not elsewhere classified - Assessment and plan all Dx Assessment and Plan for all problems:: #Acute hypoxic respiratory failure: #MRSA pneumonia: #MRSA bacteremia: #Bilateral pleural effusions: #Pulmonary hypertension diagnosed by echocardiogram with RVSP at [age]-year-old male with no prior respiratory complaints not on any oxygen at home, not using any inhalers presented to the hospital complaining of cough, weakness also concerning for facial cellulitis and eventually admitted to the hospital and found to be bacteremic with MRSA. Patient noted to have worsening effusions and pulmonary was called and on CT showed diffuse worsening airspace disease along with bilateral moderate pleural effusions right greater than left. Patient had a thoracentesis on both sides and the pleural fluid appeared to be transudative. However given his significant pneumonia and the size of the effusions plan was made to perform therapeutic thoracentesis tomorrow any further complications. Patient also appeared to be overtly volume overloaded on this hospital admission when transfacial effusions along with bilateral lower extremity edema. His echo from his admission did not show any systolic dysfunction however diastolic parameters reported to be inconclusive -patient currently not receiving any diuretics. Plan: -Continue vancomycin for a total of 14 days and cefepime for 7 days -Bilateral therapeutic thoracentesis. We will also send the pleural fluid for cytology -Volume optimization as per primary team -Continue oxygen supplementation to maintain O2 saturations at 88% to 92% -DuoNebs every 6 hours as needed for shortness of breath and wheezing, co
--- NOTE | 2020-08-25 15:00 | XR_ITS ---
PROCEDURE: XR CHEST 2V CLINICAL HISTORY: Follow-up thoracentesis COMPARISON: CT CT CHEST WO CON from 08/21/2020 CR XR CHEST 2V from 08/24/2020 CR XR CHEST 2V from 08/24/2020 CR XR CHEST 2V from 08/25/2020 FINDINGS: The cardiomediastinal silhouette and pulmonary vascularity are within normal limits. Status post right-sided thoracentesis. No evidence of pneumothorax. Diffuse bilateral pneumonia in the upper lobes and left lower lobe once again noted. Small left effusion present. Atelectatic changes in the right perihilar region. No acute bony abnormalities. IMPRESSION: Overall no change. No evidence of pneumothorax. There are small bilateral effusions and diffuse bilateral pneumonia Dictated by: Aiden Tobias MD 08/25/2020 15:11 Aiden Tobias MD in [place] 08/25/2020 15:11
[2020-08-27 05:51] LABS: Albumin, Body Fluid 0.7 g/dL (Not Estab.); Glucose, Body Fluid 125 mg/dL (.); LD, Body Fluid 135 IU/L (.); Protein, Body Fluid 1.6 g/dL (.)
== END 2020-08-25 16:05 | disposition home health service (06) | DRG 871 ==
LOC: ER 16:24 → 2ND 08-18 07:39
PROVIDERS: Internal Medicine Adolescent Medicine; Internal Medicine Pulmonary Disease; Admitting Provider Internal Medicine Adolescent Medicine; Emergency Provider Emergency Medicine; PCP Nurse Practitioner Family; Visit Provider Internal Medicine Adolescent Medicine
DX: A41.02 Sepsis due to Methicillin resistant Staphylococcus aureus (principal); J96.01 Acute respiratory failure with hypoxia; J15.212 Pneumonia due to Methicillin resistant Staphylococcus aureus; N17.9 Acute kidney failure, unspecified; L03.211 Cellulitis of face; J90 Pleural effusion, not elsewhere classified; E86.0 Dehydration; Z90.5 Acquired absence of kidney; I10 Essential (primary) hypertension; R29.6 Repeated falls; D64.9 Anemia, unspecified; K52.9 Noninfective gastroenteritis and colitis, unspecified; Z85.528 Personal history of other malignant neoplasm of kidney; Z96.651 Presence of right artificial knee joint; L01.00 Impetigo, unspecified; I27.20 Pulmonary hypertension, unspecified; R59.0 Localized enlarged lymph nodes; L82.1 Other seborrheic keratosis
CPT/HCPCS: 32554 ×2; 32555; 36415; 70486; 71045; 71046; 71250; 74176; 80048; 80053; 80202; 81001; 82042; 82945; 83605; 83615; 83690; 83735; 83986; 84145; 84155; 85007; 85014; 85018; 85025; 86850; 87040; 87070; 87077; 87086; 87186; 87205; 88112; 88305; 89051; 92610; 93306; 94640; 96365; 96366; 96367; 96375; 97110; 97116; 97162; 97165; 97530; 99284; J0692; J2405; J2543; J3370; P9016; U0003

== ENCOUNTER 2020-08-27 13:16 | Inpatient (IN) | payer MEDICARE, SELFPAY ==
[2020-08-27 12:24] VITALS: BMI 25.0
--- NOTE | 2020-08-27 12:44 | CA_ITS ---
APPROVED REPORT EXAM: Limited 2D Echocardiogram Device Sales Consultant: Concetta Priest RCS, RVS Ht: 6 ft 1 in Wt: 160lbs BSA: 1.96 BP: 000/00 mmHg Indications: EF CHECK, F/U Pneumonia, Pleural effusion 2D Dimensions IVSd 0.86 cm LVEF (Visual) 59.20 % PWd 0.87 cm LVDd 5.75 cm LVDs 3.92 cm M-Mode Dimensions RVDd 2.54 cm (0.9-2.6) LVDd 5.81 cm (3.5-5.7) LVDs 3.99 cm (3.5-5.7) IVSd 0.83 cm (0.6-1.1) PWd 0.80 cm (0.6-1.1) EF (Teich) 58.40% FS 31.30% EDV (Teich) 167.20 mL ESV (Teich) 69.60 mL Tricuspid Valve TR P. Velocity 414.00 cm/s RAP Estimate 10.00 mmHg RVSP 78.60 mmHg Left Ventricle Limited echocardiogram was performed, left atrium is moderately enlarged, left ventricle is normal size, visually estimated ejection fraction 50% in the obtained views with no regional wall motion abnormality. Right Ventricle Right atrium and right ventricle are mildly enlarged with normal contractility. Aortic Valve Aortic valve is minimally thickened and fibrosed. Aortic Doppler was not performed. Mitral Valve Mitral leaflets are minimally thickened, there is mitral regurgitation present which is difficult to quantify it appears to be moderate range in this study. Tricuspid Valve There is moderate to severe tricuspid regurgitation, calculated right ventricular systolic pressure is 78 mmHg. Pulmonic Valve Pulmonic valve is not well visualized Great Vessels Aortic root is normal size. Inferior vena cava is mildly dilated without significant inspiratory collapse. Pericardium Trivial pericardial effusion noted There is no significant left-sided pleural effusion seen in this study. Conclusion 1. Limited study performed as described above 2. Normal left ventricular size, visually estimated ejection fraction 50%. 3. Moderate mitral and moderate to severe tricuspid regurgitation, calculated right ventricular systolic pressure 78 mmHg. 4. Trivial pericardial effusion and no significant left-sided pleural effusion seen. 5. Inferior vena cava is mildly dilated without significant inspiratory collapse. Electronically signed by : Shimon Lynn, 08/27/2020 16:35:25
[2020-08-27 13:02] LABS: Basophils % 0.1 % (0.1-2.0); Eosinophils % 0.1 % (0.1-12.0); Hematocrit 30.5 % (42.0-52.0); Hemoglobin 9.7 g/dL (14.1-18.0); Lymphocytes # 0.5 K/mm3 (0.7-4.5); Lymphocytes % 2.4 % (10-50); Mean Corpuscular HGB Conc 31.7 g/dL (31.8-35.4); Mean Corpuscular Volume 81.9 fl (80-94); Mean Platelet Volume 7.7 fl (7.4-10.4); Monocytes # 0.7 K/mm3 (0.1-1.0); Monocytes % 3.7 % (1.7-9.3); Neutrophils # 18.5 K/mm3 (1.8-7.8); Neutrophils % 93.8 % (37.0-80.0); Platelet Count 615 K/mm3 (142-424); Red Blood Count 3.72 M/mm3 (4.60-6.20); Red Cell Distribution Width 15.6 % (11.5-17.5); White Blood Count 19.8 K/mm3 (4.8-10.8)
[2020-08-27 13:05] LABS: MANUAL DIFFERENTIAL MANUAL DIFFERENTIAL (MANUAL DIFF)
[2020-08-27 13:10] LABS: Chloride 108 mmol/L (98-107); Sodium 138 mmol/L (136-145)
[2020-08-27 13:11] LABS: Potassium 4.3 mmoL/L (3.5-5.1)
[2020-08-27 13:13] LABS: Alanine Aminotransferase 13 U/L (12-78); Albumin Level 3.1 g/dl (3.5-5.0); Albumin/Globulin Ratio 0.9 (1.1-1.8); Alkaline Phosphatase 207 U/L (38-126); Anion Gap 14.3 mEq/L (5-15); Aspartate Amino Transferase 27 U/L (17-59); Bilirubin,Total 0.6 mg/dl (0.2-1.3); Blood Urea Nitrogen 42 mg/dl (9-20); Calcium 8.6 mg/dl (8.4-10.2); Carbon Dioxide 20 mmol/L (22.0-30.0); Creatinine Clearance Estimated 30 mL/min (50-200); Estimated Glomerular Filt Rate 27 ml/min (>60); GFR (African American) 33 ML/MIN (>60); Globulin 3.4 g/dL (1.3-3.2); Glucose 110 mg/dl (74-100); Total Protein,Serum 6.5 g/dl (6.3-8.2)
[2020-08-27 13:14] LABS: Magnesium 2.1 mg/dl (1.6-2.3)
[2020-08-27 13:21] LABS: Eosinophils % 2 % (0-3); Hypochromasia 2+; Lymphocytes % 4 % (10-50); Microcytosis 2+; Monocytes % 5 % (2-9); Neutrophils % 89 % (42-76); Platelet Estimate Normal; Total Cells Counted 100
[2020-08-27 13:23] LABS: NT Pro Brain Natriuretic Pep. 22600 pg/mL (0-450)
--- NOTE | 2020-08-27 13:38 | P.CONPHA_ITS ---
- Pharmacy Consult Date: 08/27/20 Time: 13:38 Referring provider: DR. ANGEL Reason for Consult:: VANCOMYCIN DOSING Allergies and ADEs:: Allergies Allergy/AdvReac Type Severity Reaction Status Date / Time No Known Allergies Allergy Verified 08/17/20 12:41 Home Medications:: Home Medications Medication Instructions Recorded Confirmed Type Buspirone HCl [Buspar 10mg 10 mg PO BID 08/17/20 08/17/20 History tablet] Fluoxetine HCl [Prozac] 40 mg PO BID 08/17/20 08/17/20 History Gabapentin 600 mg PO BID 08/17/20 08/17/20 History Hydrocodone/Acetaminophen 1 each PO TID 08/17/20 08/18/20 History [Hydrocodone-Acetamin 7.5-325] Lansoprazole 30 mg PO DAILY 08/17/20 08/17/20 History Ropinirole HCl 1 mg PO BID 08/17/20 08/17/20 History carvediloL [Carvedilol 3.125mg Tab] 3.125 mg PO BID 08/17/20 08/17/20 History Doxycycline Hyclate [Doxycycline 100 mg PO BID 8 Days #16 cap 08/25/20 Rx 100mg Capsule] Ipratropium/Albuterol Sulfate 3 ml IH Q6HP PRN 30 Days #120 08/25/20 Rx [Duoneb 3mL neb] ampul.neb Mupirocin [Bactroban 2% Ointment 0 gm TP TID 5 Days #1 tube 08/25/20 Rx 22gm tube] Height: 1.85 m Weight: 86.183 kg Laboratory Results:: Laboratory Results - last 24 hr 08/27/20 12:50: WBC 19.8 H, RBC 3.72 L, Hgb 9.7 L, Hct 30.5 L, MCV 81.9, MCH 26.0 L, MCHC 31.7 L, RDW 15.6, Plt Count 615 H D, MPV 7.7, Neut % (Auto) 93.8 H, Lymph % (Auto) 2.4 L, [place] % (Auto) 3.7, Eos % (Auto) 0.1, Baso % (Auto) 0.1, Neut # (Auto) 18.5 H, Lymph # (Auto) 0.5 L, [place] # (Auto) 0.7, Eos # (Auto) 0.0, Baso # (Auto) 0.0, Total Counted 100, Neutrophils % (Manual) 89 H, Lymphocytes % (Manual) 4 L, Monocytes % (Manual) 5, Eosinophils % (Manual) 2, Platelet Estimate Normal, Hypochromasia 2+, Microcytosis 2+ 08/27/20 12:50: Sodium 138, Potassium 4.3, Chloride 108 H, Carbon Dioxide 20 L, Anion Gap 14.3, BUN 42 H, Creatinine 2.30 H, Estimated Creat Clear 30, Estimated GFR 27 L, Est GFR ( Amer) 33 L, Glucose 110 H, Calcium 8.6, Magnesium 2.1, Total Bilirubin 0.6, AST 27, ALT 13, Alkaline Phosphatase 207 H, Total Protein 6.5, Albumin 3.1 L, Globulin 3.4 H, Albumin/Globulin Ratio 0.9 L 08/27/20 12:50: NT-Pro-B Natriuret Pep 07372 H Medical History: Reports:: Cancer Denies:: Diabetes Mellitus Type 1, Diabetes Mellitus Type 2 Assessment and Plan - Assessment and plan all Dx Assessment and Plan for all problems:: BASED ON PATIENT FACTORS, RECOMMEND INITIATING VANCOMYCIN AT 1,250MG EVERY 36 HOURS. WILL CHANGE INTERVAL IF PATIENT'S RENAL FUNCTION IMPROVES. PHARMACY WILL CONTINUE TO MONITOR. -NURIA NIELSON, AMID
--- NOTE | 2020-08-27 13:39 | HMH.PHAVTE ---
[facility] Pharmacy VTE Monitoring - Patient Demographics Admission date: 08/27/20 Report Date: 08/27/20 Time: 13:39 Allergies/Adverse Reactions: Patient Allergies No Known Allergies Allergy (Verified 08/17/20 12:41) Height: 1.85 m Weight: 86.183 kg - VTE Risk Labs: VTE Related Lab Results Hgb 9.7 g/dL (14.1-18.0) L 08/27/20 12:50 Hct 30.5 % (42.0-52.0) L 08/27/20 12:50 Plt Count 615 K/mm3 (142-424) H D 08/27/20 12:50 BUN 42 mg/dl (9-20) H 08/27/20 12:50 Creatinine 2.30 mg/dl (0.66-1.25) H 08/27/20 12:50 Estimated Creat Clear 30 mL/min (50-200) 08/27/20 12:50 - Prophylaxis VTE Prophylaxis Ordered?: Yes Types of VTE Prophylaxis: TEDS Knee High Location of Applied Device: Bilateral Lower Extremeties
[2020-08-27 13:52] VITALS: BP 145/56; PULSE 75; RESP 20; TEMP 36.6; O2SAT 90; BMI 22.7
--- NOTE | 2020-08-27 13:57 | XR_ITS ---
PROCEDURE: XR CHEST PORTABLE CLINICAL HISTORY: hypoxia COMPARISON: CT CT CHEST WO CON from 08/21/2020 CR XR CHEST 2V from 08/24/2020 CR XR CHEST 2V from 08/25/2020 CR XR CHEST 2V from 08/25/2020 FINDINGS: The cardiomediastinal silhouette and pulmonary vascularity are within normal limits. There is diffuse bilateral pneumonia probably overall not significantly changed considering the difference in technique. Small left pleural effusion and trace right effusion noted. Mild atelectatic changes are present in the left lung base. No acute bony abnormalities. IMPRESSION: Overall no change in the diffuse bilateral pneumonia and small bilateral effusions Dictated by: Aiden Tobias MD 08/27/2020 14:51 Aiden Tobias MD in [place] 08/27/2020 14:51
--- NOTE | 2020-08-27 14:18 | HMH.PULMCON ---
*Admission Date: 08/27/20 *Reason for consult:: Hypoxic respiratory failure *History of present illness: 84-year-old male recently discharged from the hospital after being treated for MRSA pneumonia and MRSA bacteremia discharged home on oral doxycycline to the hospital worsening respiratory failure increasing oxygen requirements and worsening lower extremity edema. [facility] History Medical History: Reports:: Cancer Denies:: Diabetes Mellitus Type 1, Diabetes Mellitus Type 2 *Have you ever received a pneumonia vaccine?: No *Have you received a flu vaccine this season?: No Other Medical History: Reports: Other Other Surgeries: Yes: Cancer Surgery - *Social History Last grade of school completed: 7th or 8th Smoking Status: Never smoker Alcohol Intake: never Substance Use Type: other *Occupational Status:: retired Housing: house Household Members: family *Travel in the last 8 weeks: Inside the [place] Family Hx:: Cancer, Diabetes, Stroke ROS - Cons Reports anorexia, Reports fatigue, Reports weakness - ENT Denies bleeding gums - Card Reports shortness of breath, Reports shortness of breath with activity, Reports generalized swelling, Reports leg swelling - Resp Respiratory: Denies change in phlegm color, Reports cough, Reports dyspnea, Reports dyspnea on exertion, Denies excessive phlegm production, Denies coughing up blood - GI Gastrointestingal: Reports: abdominal pain - [place] Musculoskeletal: Reports back pain Meds Home Medications Medication Instructions Recorded Confirmed Type Buspirone HCl [Buspar 10mg 10 mg PO BID 08/17/20 08/27/20 History tablet] Fluoxetine HCl [Prozac] 40 mg PO BID 08/17/20 08/27/20 History Gabapentin 600 mg PO BID 08/17/20 08/27/20 History Hydrocodone/Acetaminophen 1 each PO TIDP PRN 08/17/20 08/27/20 History [Hydrocodone-Acetamin 7.5-325] Lansoprazole 30 mg PO DAILY 08/17/20 08/27/20 History Ropinirole HCl 1 mg PO BID 08/17/20 08/27/20 History carvediloL [Carvedilol 3.125mg Tab] 3.125 mg PO BID 08/17/20 08/27/20 History Doxycycline Hyclate [Doxycycline 100 mg PO BID 8 Days #16 cap 08/25/20 08/27/20 Rx 100mg Capsule] Ipratropium/Albuterol Sulfate 3 ml IH Q6HP PRN 30 Days #120 08/25/20 08/27/20 Rx [Duoneb 3mL neb] ampul.neb Mupirocin [Bactroban 2% Ointment 0 gm TP TID 5 Days #1 tube 08/25/20 08/27/20 Rx 22gm tube] Allergies Allergy/AdvReac Type Severity Reaction Status Date / Time No Known Allergies Allergy Verified 08/17/20 12:41 Exam - Constitutional Constitutional:: Present: no acute distress, comfortable - HENMT Exam HENMT: Present: normocephalic, atraumatic - Neck Exam Neck:: Present: normal visual inspection - Respiratory Exam Respiratory:: Present: respiratory distress, crackles. Absent: wheezing - Cardiovascular Exam Cardiac:: Present: S1, S2 - GI Exam GI:: Present: soft - Skin Exam Skin: Present: warm, no rash - Neurological Exam Neurological: Present: alert, awake, normal cognition - Extremities Exam Extremities: Present: no cyanosis, no clubbing, edema - Psychiatric Exam Psychiatric: Present: normal affect Internal Medicine - CN: Reslt - Labs CBC & Chem 7: 08/28/20 06:50 08/28/20 06:50 Labs: Short CBC 08/27/20 Range/Units 12:50 WBC 19.8 H (4.8-10.8) K/mm3 Hgb 9.7 L (14.1-18.0) g/dL Hct 30.5 L (42.0-52.0) % Plt Count 615 H D (142-424) K/mm3 BMP 08/27/20 12:50 Sodium 138 Potassium 4.3 Chloride 108 H Carbon Dioxide 20 L BUN 42 H Creatinine 2.30 H Glucose 110 H Calcium 8.6 Liver Function 08/27/20 Range/Units 12:50 Total Bilirubin 0.6 (0.2-1.3) mg/dl AST 27 (17-59) U/L ALT 13 (12-78) U/L Alkaline Phosphatase 207 H (38-126) U/L Albumin 3.1 L (3.5-5.0) g/dl Assessment and Plan - Assessment and plan all Dx Assessment and Plan for all problems:: #Acute hypoxic respiratory failure: #MRSA pneumonia: #MRSA bacteremia:
--- NOTE | 2020-08-27 14:31 | HMH.CNCARD ---
History of Present Illness Consult date: 08/27/20 Requesting physician: Chucho Geiger Consult reason: shortness of breath Chief complaint: SOB History of present illness: This is an 84-year-old white gentleman who was admitted to the hospital for CHF exacerbation. The patient was just discharged from the hospital 2 days ago on Monday. He had previously been admitted and had cellulitis in his face. The patient was found to have multiple lung nodules that were concerning for possible infection versus metastatic disease secondary to his recent history of metastatic renal cell carcinoma. The patient also had bilateral pleural effusions. He did undergo thoracentesis on the right x2 and thoracentesis on the left x1 during his last hospital stay. As mentioned above the patient was discharged on Monday pain he went to see Dr. Lee today. The patient was profoundly short of breath and then readmitted to the hospital. His daughter states that on Monday night the patient started to get more progressively short of breath and his bilateral lower extremity edema significantly worsened. She states that he woke up at 1 AM this morning and was severely short of breath and his oxygen saturations were down at 66%. The patient's daughter had him take some deep breaths and was able to get his oxygen saturation up to 73%. She states that she knew they had an appointment to see Dr. Lee today and when they went and he was significantly short of breath and he was admitted to the hospital for CHF exacerbation. He denies any chest pain or pressure. He is profoundly short of breath and on a nonrebreather. He states his shortness of breath is somewhat better on the nonrebreather but he still feels really short of breath even at rest. He states that he has severe leg edema. His shortness of breath is associated with orthopnea. He denies any fevers, nausea, vomiting or diarrhea. [facility] History I have reviewed the patient's past medical history: Yes Medical History: Reports:: Cancer, Heart Murmur, Valvular Heart Disease Denies:: Diabetes Mellitus Type 1, Diabetes Mellitus Type 2 *Have you ever received a pneumonia vaccine?: No *Have you received a flu vaccine this season?: No Other Surgeries: Yes: Cancer Surgery - *Social History Smoking Status: Never smoker Alcohol Intake: never *Occupational Status:: retired Housing: house Household Members: family *Travel in the last 8 weeks: None Family Hx:: Cancer, Coronary Artery Disease (brother), Diabetes, Stroke Meds Home Medications Medication Instructions Recorded Confirmed Type Buspirone HCl [Buspar 10mg 10 mg PO BID 08/17/20 08/17/20 History tablet] Fluoxetine HCl [Prozac] 40 mg PO BID 08/17/20 08/17/20 History Gabapentin 600 mg PO BID 08/17/20 08/17/20 History Hydrocodone/Acetaminophen 1 each PO TID 08/17/20 08/18/20 History [Hydrocodone-Acetamin 7.5-325] Lansoprazole 30 mg PO DAILY 08/17/20 08/17/20 History Ropinirole HCl 1 mg PO BID 08/17/20 08/17/20 History carvediloL [Carvedilol 3.125mg Tab] 3.125 mg PO BID 08/17/20 08/17/20 History Doxycycline Hyclate [Doxycycline 100 mg PO BID 8 Days #16 cap 08/25/20 Rx 100mg Capsule] Ipratropium/Albuterol Sulfate 3 ml IH Q6HP PRN 30 Days #120 08/25/20 Rx [Duoneb 3mL neb] ampul.neb Mupirocin [Bactroban 2% Ointment 0 gm TP TID 5 Days #1 tube 08/25/20 Rx 22gm tube] Allergies Allergy/AdvReac Type Severity Reaction Status Date / Time No Known Allergies Allergy Verified 08/17/20 12:41 Exam Vital signs and Labs for Last 24 Hours: Temp Pulse Resp BP Pulse Ox 97.9 F 75 20 145/56 H 90 L 08/27/20 13:52 08/27/20 13:52 08/27/20 13:52 08/27/20 13:52 08/27/20 13:52 Laboratory Results - last 24 hr 08/27/20 12:50: WBC 19.8 H, RBC 3.72 L, Hgb 9.7 L, Hct 30.5 L, MCV 81.9, MCH 26.0 L, MCHC 31.7 L, RDW 15.6, Plt Count 615 H D, MPV 7.7, Neut % (Auto) 93.8 H, Lymph % (Auto) 2.4 L, [place] % (Auto) 3.7, Eos % (Auto) 0.1
[2020-08-27 14:57] LABS: Lactic Acid 1.4 mmol/L (0.7-2.1)
--- NOTE | 2020-08-27 15:38 | ECG_ITS ---
APPROVED REPORT Exam: Resting ECG HR:74 bpm ECG Measurements Heart Rate 74 AXES WA 172 P 56 QRSd 92 QRS 19 QT 468 T 42 QTc 519 Conclusion Normal sinus rhythm Possible Left atrial enlargement Nonspecific T wave abnormality Prolonged QT Abnormal ECG Electronically signed by : Chucho Geiger, 08/29/2020 07:29:06
[2020-08-27 15:45] VITALS: O2SAT 90
--- NOTE | 2020-08-27 15:55 | HMH.HP ---
*Admission Date: 08/27/20 *Chief complaint: Worsening dyspnea/edema *History of present illness: This is an 84-year-old white gentleman who was admitted to the hospital for CHF exacerbation. The patient was just discharged from the hospital 2 days ago on Monday. He had previously been admitted and had cellulitis in his face. The patient was found to have multiple lung nodules that were concerning for possible infection versus metastatic disease secondary to his recent history of metastatic renal cell carcinoma. The patient also had bilateral pleural effusions. He did undergo thoracentesis on the right x2 and thoracentesis on the left x1 during his last hospital stay. As mentioned above the patient was discharged on Monday pain he went to see Dr. Geiger today. The patient was profoundly short of breath and then readmitted to the hospital. His daughter states that on Monday night the patient started to get more progressively short of breath and his bilateral lower extremity edema significantly worsened. She states that he woke up at 1 AM this morning and was severely short of breath and his oxygen saturations were down at 66%. The patient's daughter had him take some deep breaths and was able to get his oxygen saturation up to 73%. She states that she knew they had an appointment to see Dr. Geiger today and when they went and he was significantly short of breath and he was admitted to the hospital for CHF exacerbation. He denies any chest pain or pressure. He is profoundly short of breath and on a nonrebreather. He states his shortness of breath is somewhat better on the nonrebreather but he still feels really short of breath even at rest. He states that he has severe leg edema. His shortness of breath is associated with orthopnea. He denies any fevers, nausea, vomiting or diarrhea. Above note per cardiology consultation, appreciated, agree with note above and presentation data. [facility] History I have reviewed the patient's past medical history: Yes Medical History: Reports:: Cancer, Heart Murmur, Hypertension, Valvular Heart Disease Denies:: Diabetes Mellitus Type 1, Diabetes Mellitus Type 2 *Have you ever received a pneumonia vaccine?: Yes *Have you received a flu vaccine this season?: Yes Other Surgeries: Yes: Cancer Surgery - *Social History Smoking Status: Never smoker Alcohol Intake: never *Occupational Status:: retired Housing: house Household Members: children *Travel in the last 8 weeks: None Family Hx:: Cancer, Coronary Artery Disease (brother), Diabetes, Stroke Review of Systems - Review of Systems Review of systems:: pertinent systems reviewed and negative unless documented below - Constitutional Reports anorexia, Reports fatigue, Reports lack of energy, Reports malaise - ENT Reports poor balance, Reports dizziness - *Cardiovascular Reports shortness of breath, Reports generalized swelling - *Respiratory Reports change in phlegm color, Reports shortness of breath, Reports shortness of breath with activity - *Neurologic Reports weakness - Endocrine Reports rapid, pounding, or irregular heartbeat Meds Home Medications Medication Instructions Recorded Confirmed Type Buspirone HCl [Buspar 10mg 10 mg PO BID 08/17/20 08/27/20 History tablet] Fluoxetine HCl [Prozac] 40 mg PO BID 08/17/20 08/27/20 History Gabapentin 600 mg PO BID 08/17/20 08/27/20 History Hydrocodone/Acetaminophen 1 each PO TIDP PRN 08/17/20 08/27/20 History [Hydrocodone-Acetamin 7.5-325] Lansoprazole 30 mg PO DAILY 08/17/20 08/27/20 History Ropinirole HCl 1 mg PO BID 08/17/20 08/27/20 History carvediloL [Carvedilol 3.125mg Tab] 3.125 mg PO BID 08/17/20 08/27/20 History Doxycycline Hyclate [Doxycycline 100 mg PO BID 8 Days #16 cap 08/25/20 08/27/20 Rx 100mg Capsule] Ipratropium/Albuterol Sulfate 3 ml IH Q6HP PRN 30 Days #120 08/25/20 08/27/20 Rx [Duoneb 3mL neb] ampul.neb Mupirocin [Bactroban 2% Ointment 0 gm TP
[2020-08-27 16:00] LABS: Troponin I < 0.01 ng/ml (0.00-0.034)
[2020-08-27 18:13] VITALS: O2SAT 91
[2020-08-27 19:59] VITALS: BP 131/51; PULSE 73; RESP 18; TEMP 36.8; O2SAT 91
[2020-08-27 23:49] VITALS: BP 140/56; PULSE 70; RESP 20; TEMP 36.5; O2SAT 90
[2020-08-28] VITALS (19 sets, daily range): BP systolic 110–170; BP diastolic 51–78; PULSE 68–80; RESP 18–30; TEMP 36.6–36.8; O2SAT 83–93; BMI 22.3; BMI 22.1
--- NOTE | 2020-08-28 03:37 | PC.NURSE ---
A&OX4. PT TOLERATING VENTI MASK, ON 50%/15L AT THIS TIME. PT O2 IN LOWER 90S. PT IS VERY WEAK T/O SHIFT. PT HAS HAD ADEQUATE U/O T/O SHIFT. +3 PITTING EDEMA NOTED TO BLE. X1 ASSIST IN ROOM. PT HAS NOT C/O PAIN/NA/VO/COUGH T/O SHIFT. VSS WILL CONTINUE TO MONITOR.
[2020-08-28 07:07] LABS: Basophils % 0.1 % (0.1-2.0); Eosinophils # 0.1 K/mm3 (0.0-0.4); Eosinophils % 0.3 % (0.1-12.0); Hematocrit 28.9 % (42.0-52.0); Hemoglobin 8.9 g/dL (14.1-18.0); Lymphocytes # 0.6 K/mm3 (0.7-4.5); Mean Corpuscular HGB Conc 30.7 g/dL (31.8-35.4); Mean Corpuscular Hemoglobin 25.3 pg (27.0-31.2); Mean Corpuscular Volume 82.3 fl (80-94); Mean Platelet Volume 7.4 fl (7.4-10.4); Monocytes # 0.8 K/mm3 (0.1-1.0); Monocytes % 4.8 % (1.7-9.3); Neutrophils # 14.2 K/mm3 (1.8-7.8); Neutrophils % 90.8 % (37.0-80.0); Platelet Count 534 K/mm3 (142-424); Red Blood Count 3.51 M/mm3 (4.60-6.20); Red Cell Distribution Width 15.9 % (11.5-17.5); White Blood Count 15.7 K/mm3 (4.8-10.8)
[2020-08-28 07:13] LABS: MANUAL DIFFERENTIAL MANUAL DIFFERENTIAL (MANUAL DIFF)
[2020-08-28 07:15] LABS: Anion Gap 10.7 mEq/L (5-15); Blood Urea Nitrogen 47 mg/dl (9-20); Calcium 8.3 mg/dl (8.4-10.2); Carbon Dioxide 22 mmol/L (22.0-30.0); Chloride 108 mmol/L (98-107); Creatinine Clearance Estimated 23 mL/min (50-200); Estimated Glomerular Filt Rate 24 ml/min (>60); GFR (African American) 29 ML/MIN (>60); Glucose 101 mg/dl (74-100); Potassium 3.7 mmoL/L (3.5-5.1); Sodium 137 mmol/L (136-145)
--- NOTE | 2020-08-28 07:22 | HMH.ACPN2 ---
Internal Medicine - PN: Subj *Date: 08/28/20 *Time: 19:27 Interval history: Mr. Roman has continued to have significant respiratory distress overnight. Remains quite fatigued necessitating 50% Venti this morning. Diuresing well. Cardiology and pulmonology following along, appreciate their recommendations. Patient remains afebrile. Poor p.o. intake due to shortness of breath and desaturations with movement/removal of oxygen. Denies chest pain, nausea or vomiting, diarrhea. Improved edema in lower legs. Daughter at bedside, updated on plan Exam Vital signs and Labs for Last 24 Hours: Temp Pulse Resp BP Pulse Ox 97.8 F 70 18 146/62 H 93 L 08/28/20 04:00 08/28/20 04:00 08/28/20 04:00 08/28/20 04:00 08/28/20 04:00 Laboratory Results - last 24 hr 08/27/20 12:50: WBC 19.8 H, RBC 3.72 L, Hgb 9.7 L, Hct 30.5 L, MCV 81.9, MCH 26.0 L, MCHC 31.7 L, RDW 15.6, Plt Count 615 H D, MPV 7.7, Neut % (Auto) 93.8 H, Lymph % (Auto) 2.4 L, Lynn % (Auto) 3.7, Eos % (Auto) 0.1, Baso % (Auto) 0.1, Neut # (Auto) 18.5 H, Lymph # (Auto) 0.5 L, Lynn # (Auto) 0.7, Eos # (Auto) 0.0, Baso # (Auto) 0.0, Total Counted 100, Neutrophils % (Manual) 89 H, Lymphocytes % (Manual) 4 L, Monocytes % (Manual) 5, Eosinophils % (Manual) 2, Platelet Estimate Normal, Hypochromasia 2+, Microcytosis 2+ 08/27/20 12:50: Sodium 138, Potassium 4.3, Chloride 108 H, Carbon Dioxide 20 L, Anion Gap 14.3, BUN 42 H, Creatinine 2.30 H, Estimated Creat Clear 30, Estimated GFR 27 L, Est GFR ( Amer) 33 L, Glucose 110 H, Calcium 8.6, Magnesium 2.1, Total Bilirubin 0.6, AST 27, ALT 13, Alkaline Phosphatase 207 H, Total Protein 6.5, Albumin 3.1 L, Globulin 3.4 H, Albumin/Globulin Ratio 0.9 L 08/27/20 12:50: NT-Pro-B Natriuret Pep 47094 H 08/27/20 14:28: Lactate 1.4 08/27/20 15:06: Troponin I < 0.01 08/28/20 06:50: WBC 15.7 H, RBC 3.51 L, Hgb 8.9 L, Hct 28.9 L, MCV 82.3, MCH 25.3 L, MCHC 30.7 L, RDW 15.9, Plt Count 534 H, MPV 7.4, Neut % (Auto) 90.8 H, Lymph % (Auto) 4.0 L, Lynn % (Auto) 4.8, Eos % (Auto) 0.3, Baso % (Auto) 0.1, Neut # (Auto) 14.2 H, Lymph # (Auto) 0.6 L, Lynn # (Auto) 0.8, Eos # (Auto) 0.1, Baso # (Auto) 0.0 I & O for Last 24 hours: Intake & Output 08/25/20 08/26/20 08/27/20 08/28/20 23:59 23:59 23:59 23:59 Intake Total 60 / 60 50 / 50 Output Total 1550 / 1550 1150 / 1150 Balance -1490 / -1490 -1100 / -1100 Weight 78.188 kg 76.345 kg Microbiology Reports for the Last 24 Hours: Microbiology 08/27/20 14:28 Nasopharyngeal Coronavirus COVID-19 PCR - Final - Constitutional moderate distress, chronically ill appearing - *Routine HEENT Exam Head: Present: normocephalic Eye: Present: EOMI, PERRL ENT: Present: mucous membranes moist - *Routine Neck Exam Present: supple. Absent: lymphadenopathy - *Routine Respiratory Exam Present: decreased breath sounds, respiratory distress, wheezes, crackles - *Routine Cardiovascular Exam Present: RRR - *Routine Abdominal Exam Present: soft, normoactive bowel sounds. Absent: tenderness - *Routine Extremities Exam Present: edema (2+ to knees). Absent: cyanosis, clubbing - *Routine Skin Exam Present: warm. Absent: rash - *Routine Neurological Exam Present: alert, oriented X3 Assessment and Plan (1) Acute diastolic (congestive) heart failure Status: Acute Category: Medical Code(s): I50.31 - Acute diastolic (congestive) heart failure (2) Shortness of breath Status: Acute Category: Medical Code(s): R06.02 - Shortness of breath (3) Bilateral lower extremity edema Status: Acute Category: Medical Code(s): R60.0 - Localized edema (4) Mitral regurgitation Status: Acute Category: Medical Code(s): I34.0 - Nonrheumatic mitral (valve) insufficiency (5) Pulmonary hypertension Status: Acute Category: Medical Code(s): I27.20 - Pulmonary hypertension, unspecified (6) Pulmonary nodules Status: Acute Category: Medical Code(s): R91.8 - Other nonsp
--- NOTE | 2020-08-28 08:06 | HMH.PNCARD ---
Subjective Date: 08/28/20 Time: 08:00 Interval history: This is an 84-year-old white gentleman who was admitted to the hospital for CHF exacerbation yesterday. The patient was found to have multiple lung nodules that were concerning for possible infection versus metastatic disease secondary to his recent history of metastatic renal cell carcinoma. Chest xray performed and revealed bilateral pleural effusions. He did undergo thoracentesis on the right x2 and thoracentesis on the left x1 during his last hospital stay. Patient is alert and oriented x3 this a.m. Daughter is at the bedside. Patient did have an uneventful night. Patient denies chest pain, tightness or pressure. Patient denies palpitations or dizziness. Denies fever, vomiting or diarrhea. Patient does complain of increased shortness of breath. Patient is noted to be on a Estrada Ventimask. Patient continues to pulse ox in the low 90s. Patient states he just feels like he cannot catch his breath. Vital signs are stable. Patient noted to have bilateral lower extremity edema. Patient was started on Lasix 80 mg IV twice daily and is on fluid restrictions. This is due to congestive heart failure and renal failure. Pulmonology is managing the pleural effusions. Serial troponins were obtained which were negative x3. Creatinine this a.m. has increased to 2.60. Echocardiogram revealed EF 50% with moderate mitral and moderate to severe tricuspid regurgitation. Severe pulmonary hypertension noted. BNP 22,000. Due to congestive heart failure and severe pulmonary hypertension, would recommend right and left heart catheterization to determine the severity of the CHF and pulmonary hypertension. Due to patient's renal status unable to perform right and left heart catheterization at this time. We will continue to diurese patient due to CHF. Continue fluid restrictions. We will start milrinone continuous drip (per pharmacy dose)to reduce afterload. We will also give an additional 80 mg Lasix IV in half an hour after milrinone drip is been started. Please continue to monitor as patient status and notify cardiology of any change in patient status. Will stop Coreg at this time. Start Lovenox SQ daily for prophylaxis for PE/DVT. Echo Limited: Conclusion 1. Limited study performed as described above 2. Normal left ventricular size, visually estimated ejection fraction 50%. 3. Moderate mitral and moderate to severe tricuspid regurgitation, calculated right ventricular systolic pressure 78 mmHg. 4. Trivial pericardial effusion and no significant left-sided pleural effusion seen. 5. Inferior vena cava is mildly dilated without significant inspiratory collapse. Orders were taken from Dr. Galindo. Dr. Galindo was present in room. Thank you for allowing cardiology to participate in the care of this patient. Exam Vital signs and Labs for Last 24 Hours: Temp Pulse Resp BP Pulse Ox 97.9 F 76 24 146/61 H 91 L 08/28/20 07:29 08/28/20 07:29 08/28/20 07:29 08/28/20 07:29 08/28/20 07:29 Laboratory Results - last 24 hr 08/27/20 12:50: WBC 19.8 H, RBC 3.72 L, Hgb 9.7 L, Hct 30.5 L, MCV 81.9, MCH 26.0 L, MCHC 31.7 L, RDW 15.6, Plt Count 615 H D, MPV 7.7, Neut % (Auto) 93.8 H, Lymph % (Auto) 2.4 L, Alcorn % (Auto) 3.7, Eos % (Auto) 0.1, Baso % (Auto) 0.1, Neut # (Auto) 18.5 H, Lymph # (Auto) 0.5 L, Alcorn # (Auto) 0.7, Eos # (Auto) 0.0, Baso # (Auto) 0.0, Total Counted 100, Neutrophils % (Manual) 89 H, Lymphocytes % (Manual) 4 L, Monocytes % (Manual) 5, Eosinophils % (Manual) 2, Platelet Estimate Normal, Hypochromasia 2+, Microcytosis 2+ 08/27/20 12:50: Sodium 138, Potassium 4.3, Chloride 108 H, Carbon Dioxide 20 L, Anion Gap 14.3, BUN 42 H, Creatinine 2.30 H, Estimated Creat Clear 30, Estimated GFR 27 L, Est GFR ( Amer) 33 L, Glucose 110 H, Calcium 8.6, Magnesium 2.1, Total Bilirubin 0.6, AST 27, ALT 13, Alkaline Phosphatase 207 H, Total Protein 6.5, Albumin 3.1 L, Globulin 3.4 H,
--- NOTE | 2020-08-28 09:32 | HMH.PULMPN ---
Internal Medicine - PN: Subj *Date: 08/28/20 *Time: 09:32 Interval history: No acute respiratory events overnight. Exam - Constitutional Constitutional:: Present: no acute distress, comfortable - HENMT Exam HENMT: Present: normocephalic, atraumatic - Eye Exam Eyes:: Present: eyelids normal - Neck Exam Neck:: Present: normal visual inspection - Respiratory Exam Respiratory:: Present: able to speak in complete sentences, normal respiratory effort, respiratory distress, crackles. Absent: wheezing - Cardiovascular Exam Cardiac:: Present: S1, S2 - GI Exam GI:: Present: soft - Skin Exam Skin: Present: warm, no rash - Neurological Exam Neurological: Present: alert, awake - Extremities Exam Extremities: Present: no cyanosis, no clubbing, edema - Psychiatric Exam Psychiatric: Present: normal affect Assessment and Plan - Assessment and plan all Dx Assessment and Plan for all problems:: #Acute hypoxic respiratory failure: #MRSA pneumonia: #MRSA bacteremia: #Pulmonary hypertension diagnosed by echocardiogram with RVSP at [age]-year-old male with no prior respiratory complaints not on any oxygen at home, recently admitted to the hospital for MRSA bacteremia and pneumonia, patient was treated with 7 days of Vanc + cefepime and was discharged vancomycin and on 2 L nasal cannula presented to the hospital worsening respiratory failure needing Ventimask 50% to maintain his oxygen saturations. Patient during his recent admission also found to be volume overload with bilateral pleural effusions status post bilateral thoracentesis with transudate effusions. Awaiting cytopathology. Patient also appeared to be significantly volume overloaded during his recent admission and volume overload appears worse on this admission Even though patient's echo did not report any systolic dysfunction I think patient is having diastolic dysfunction that is contributing to his worsening respiratory failure. BNP on this admission at 22,600. Renal function slightly worsened from prior.Hemodynamically stable. Etiologies patient's hypoxic respiratory failure is likely combination of pneumonia and worsening volume status. Patient respiratory status remained stable but critical since admission but he continued to require maintain his saturations. He was initiated on diuresis at 80 mg IV twice daily and cardiology was consulted Plan: - Venous dopple BL - LE -Continue vancomycin (renally dosed) for a total of 14 days for his MRSA bactremia and MRSA pneumonia. -Recommend discontinuing cefepime -F/USputum and blood cultures -Aggressive diuresis & volume optimization -Continue oxygen supplementation to maintain O2 saturations at 88% to 92%. Wean to nasal cannula as tolerated -DuoNebs every 6 hours scheduled #Bilateral pulmonary nodules: # Mediastinal Adenopathy Patient CT also showed diffuse bilateral pulmonary nodule, 1.4 cm in the left apex, 12 mm in the left upper lobe,, 2 cm in the left upper lobe medially, 1.8 cm in the right upper lobe. Possibility of metastatic disease cannot be completely rule out given his recent H/O renal cancer with mets to his bone, status post resection April 2020. Plan: -Follow with repeat CT chest without contrast in 4 weeks. -Follow-up with patient's oncologist / Nephrology #Thank you for involving pulmonary in this patient care. We will continue to follow
--- NOTE | 2020-08-28 09:39 | CA_ITS ---
APPROVED REPORT Bilateral Lower Extremity Venous Study for DVT. Burner Technician: SUNIL GardinerT Indications Lower Extremity Edema: Bilateral Shortness of breath Swelling and HYpoxia Vein Imaging CFV (R): compressive, spontaneous, phasic, augmentation FEM (R): compressive, spontaneous, phasic, augmentation POP (R): compressive, spontaneous, phasic, augmentation PTV (R): Compressible GSV (R): Compressible Peroneals (R):Compressible GAS (R): Compressible CFV (L): compressive, spontaneous, phasic, augmentation FEM (L): compressive, spontaneous, phasic, augmentation POP (L): compressive, spontaneous, phasic, augmentation PTV (L): Compressible GSV (L): Compressible Peroneals (L):Compressible GAS (L): Compressible Findings Study suggests no evidence of DVT of the bilateral lower extremites. Study suggests no evidence of SVT of the bilateral lower extremites. 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 Conclusion Study suggests no evidence of DVT of the bilateral lower extremites. Study suggests no evidence of SVT of the bilateral lower extremites. 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 Electronically signed by : Aiden Tobias MD 09/01/2020 17:53:57
[2020-08-28 10:36] LABS: Eosinophils % 1 % (0-3); Hypochromasia 1+; Lymphocytes % 4 % (10-50); Monocytes % 2 % (2-9); Neutrophils % 93 % (42-76); Platelet Estimate Moderate Increase; Total Cells Counted 100
--- NOTE | 2020-08-28 11:30 | PC.NURSE ---
received report from Rajesh Snow RN. Pt is now a step down pt. Milrinone gtt started @ 0.125 mcg/kg/min (2.8 mL/hr).
--- NOTE | 2020-08-28 14:25 | DIET.NUTRFU ---
Addendum entered by Senait Vidales 08/31/20 14:41: PO intakes 25% + TID supplements. He is drinking most of his supplements but no improvement in food intake as he is still so SOA and weak. He really likes Laure[employer] and Breeze, does not like ensure. He is resistant to receiving assistance feeding from anyone other than his daughter, but will accept help with continued encouragement. Discussed with daughter option to liberalize diet if intakes do not improve. Unfortunately poor renal function and acute CHF continue. Will continue ENRIQUETA diet at this time, daughter encouraged to add salt when appropriate if it helps him to eat but prioritize Mrs. Pickens, at such low intakes he is not exceeding sodium recommendation. Continuing to monitor and alter nutritional care plan as indicated. Pt may have any additional snacks/supplements/meal replacements desired/offered by nursing. Original Note: Pt with severe protein calorie malnutrition rt CHF, he has rapidly declined nutritionally since last admit 08/19, has had loss of 7% BW. Renal function slightly worse as well. He struggled with intakes last stay because of an abscess on his lip that caused pain when eating. Pt/daughter state this has greatly improved but his appetite and strength has decreased, states he really hasn't eaten much in total since dc. In addition he now has to wear Bipap often. I encouraged them to request snacks/supplements t/o the day and replacement meals when he is too weak to eat or wearing Bipap during meal times. He is motivated to eat and very concerned about his appetite, just needs encouragement and small energy/protein rich meals/supplements t/o the day. Daughter is very concerned that he will not have assistance feeding when she is not here, I reassured her that he would be assisted for all meals she is not present. Soft/NSA diet with TID supplements of pt's preference given. Will monitor and alter as indicated. Diet edu/counseling provided to pt and daughter for malnutrition with CHF and renal cancer.
--- NOTE | 2020-08-28 18:00 | PC.NURSE ---
O2 sat low 80s on venti mask 15L/50%. Called RT (Karyna) and updated her.
--- NOTE | 2020-08-28 18:25 | PC.NURSE ---
pt now on 100% NRB mask. O2 sat low 90s.
--- NOTE | 2020-08-28 19:26 | XR_ITS ---
PROCEDURE INFORMATION: Exam: XR Chest Exam date and time: 08/28/2020 7:26 PM Age: 84 years old Clinical indication: Shortness of breath; Patient HX: Increased o2 demand TECHNIQUE: Imaging protocol: XR of the chest. Views: 1 view. COMPARISON: CR XR CHEST PORTABLE 08/27/2020 2:04 PM FINDINGS: Lungs: No change in extensive interstitial infiltrates in both lungs. Pleural spaces: Mild bilateral pleural effusions. Heart/Mediastinum: Cardiomegaly. Bones/joints: Unremarkable. IMPRESSION: No change in extensive bilateral interstitial pneumonia.
--- NOTE | 2020-08-28 19:31 | PC.NURSE ---
Condom catheter placed per MD Gomez request.
--- NOTE | 2020-08-28 22:17 | PC.NURSE ---
Pt is resting in bed with NRB 100%. Sats 88%- 92%. Spoke with MD Galindo early in shift. New orders received. Increase Milrinone gtt to 0.25 mcg/kg/min. Norvasc 10 mg PO daily. Give one dose now. Orders carried out. BP is currently 151/58. HR 77. Pt has been diuresing. One saturated brief and 100 ml output. Will continue to monitor.
[2020-08-29] VITALS (27 sets, daily range): BP systolic 94–171; BP diastolic 35–62; PULSE 70–86; RESP 19–24; TEMP 36.5–37.2; O2SAT 90–98; BMI 22.5
--- NOTE | 2020-08-29 03:54 | PC.NURSE ---
Pt remains on NRB. O2 titrated from 15L to 13L. Pt maintaining sats of 93%. Will continue to monitor and titrate O2. Milrinone continues to infuse @ 0.25 mcg/kg/min. BP is currently 131/58. HR 77. Pt NSR on telemetry. No other concerns at this time. Will continue to monitor.
[2020-08-29 05:23] LABS: Basophils % 0.1 % (0.1-2.0); Eosinophils # 0.1 K/mm3 (0.0-0.4); Eosinophils % 0.6 % (0.1-12.0); Hematocrit 28.5 % (42.0-52.0); Lymphocytes # 0.8 K/mm3 (0.7-4.5); Lymphocytes % 3.9 % (10-50); Mean Corpuscular HGB Conc 31.7 g/dL (31.8-35.4); Mean Corpuscular Volume 81.9 fl (80-94); Monocytes # 0.9 K/mm3 (0.1-1.0); Monocytes % 4.7 % (1.7-9.3); Neutrophils # 17.9 K/mm3 (1.8-7.8); Neutrophils % 90.7 % (37.0-80.0); Platelet Count 592 K/mm3 (142-424); Red Blood Count 3.48 M/mm3 (4.60-6.20); Red Cell Distribution Width 15.9 % (11.5-17.5); White Blood Count 19.8 K/mm3 (4.8-10.8)
[2020-08-29 05:29] LABS: Anion Gap 9.2 mEq/L (5-15); Blood Urea Nitrogen 50 mg/dl (9-20); Carbon Dioxide 27 mmol/L (22.0-30.0); Chloride 105 mmol/L (98-107); Creatinine Clearance Estimated 20 mL/min (50-200); Estimated Glomerular Filt Rate 21 ml/min (>60); GFR (African American) 25 ML/MIN (>60); Glucose 112 mg/dl (74-100); Magnesium 1.9 mg/dl (1.6-2.3); Potassium 3.2 mmoL/L (3.5-5.1); Sodium 138 mmol/L (136-145)
[2020-08-29 06:16] LABS: MANUAL DIFFERENTIAL MANUAL DIFFERENTIAL (MANUAL DIFF)
[2020-08-29 08:14] LABS: Eosinophils % 1 % (0-3); Hypochromasia 1+; Lymphocytes % 4 % (10-50); Monocytes % 5 % (2-9); Neutrophils % 90 % (42-76); Platelet Estimate Moderate Increase; Total Cells Counted 100
--- NOTE | 2020-08-29 09:15 | PC.NURSE ---
SPO2 noted to be 97-98% on non-rebreather, attempted to wean pt to 50% venturi mask. After about 5 minutes on venturi mask pt's sat gradually decreased to 86-87%. This nurse had previously spoken to Dr. Hudson who had stated to maintain sat 90-92%. Pt placed back on non-rebreather.
[2020-08-29 10:25] LABS: ABG Base Excess 2.4 mmol/L (-2.4-2.3); ABG HCO3 26.3 mmhg (22.0-26.0); ABG Oxygen Saturation 96 % (90-100); ABG PCO2 37.9 mmhg (35.0-45.0); ABG PH 7.46 mmol/L (7.35-7.45); ABG TCO2 27.5 mmhg (23-27)
[2020-08-29 10:30] LABS: Allen's Test Acceptable; Oxygen 70% NRB %; Source Left Radial
--- NOTE | 2020-08-29 10:46 | PC.NURSE ---
RT @ bedside starting vapotherm @ 40L/100%
--- NOTE | 2020-08-29 11:29 | HMH.ACPN2 ---
Internal Medicine - PN: Subj *Date: 08/29/20 *Time: 11:29 Interval history: Mr. Roman has continued to respond well to milrinone overnight with gradual diuresis. Stable on nonrebreather, awakes to stimuli this morning and interacted on exam after given time to wake up and become oriented. Remains afebrile. Daughter at bedside, questions answered this morning on rounds. Patient denies significant chest pain, nausea, vomiting, confusion once awake. Viewed labs this morning, slight worsening of acute kidney injury. Remains anemic. ABG obtained showing normal pH with no CO2 retention. Lactate within a normal range Exam Vital signs and Labs for Last 24 Hours: Temp Pulse Resp BP Pulse Ox 97.8 F 76 24 111/62 93 L 08/29/20 08:00 08/29/20 10:00 08/29/20 10:00 08/29/20 10:00 08/29/20 11:08 Laboratory Results - last 24 hr 08/29/20 04:52: Sodium 138, Potassium 3.2 L, Chloride 105, Carbon Dioxide 27 D, Anion Gap 9.2, BUN 50 H, Creatinine 2.90 H, Estimated Creat Clear 20, Estimated GFR 21 L, Est GFR ( Amer) 25 L, Glucose 112 H, Calcium 8.0 L, Magnesium 1.9 08/29/20 04:52: WBC 19.8 H D, RBC 3.48 L, Hgb 9.0 L, Hct 28.5 L, MCV 81.9, MCH 26.0 L, MCHC 31.7 L, RDW 15.9, Plt Count 592 H, MPV 8.0, Neut % (Auto) 90.7 H, Lymph % (Auto) 3.9 L, Winston % (Auto) 4.7, Eos % (Auto) 0.6, Baso % (Auto) 0.1, Neut # (Auto) 17.9 H, Lymph # (Auto) 0.8, Winston # (Auto) 0.9, Eos # (Auto) 0.1, Baso # (Auto) 0.0, Total Counted 100, Neutrophils % (Manual) 90 H, Lymphocytes % (Manual) 4 L, Monocytes % (Manual) 5, Eosinophils % (Manual) 1, Platelet Estimate Moderate increase, Hypochromasia 1+ 08/29/20 09:48: Specimen Source Left radial, O2 % 70% nrb, ABG pH 7.46 H, ABG pCO2 37.9, ABG pO2 79.0 L, ABG HCO3 26.3 H, ABG Total CO2 27.5 H, ABG O2 Saturation 96, ABG Base Excess 2.4 H, Aiden Test Acceptable I & O for Last 24 hours: Intake & Output 08/26/20 08/27/20 08/28/20 08/29/20 23:59 23:59 23:59 23:59 Intake Total 60 / 60 942 / 942 Output Total 1550 / 1550 3605 / 3605 275 / 275 Balance -1490 / -1490 -2663 / -2663 -275 / -275 Weight 78.188 kg 76 kg 74.191 kg Microbiology Reports for the Last 24 Hours: Microbiology 08/29/20 06:25 Sputum - Expectorated Sputum Gram Stain - Final Narrative: - Constitutional moderate distress, chronically ill appearing, slow to wake but cooperative and alert once awake - *Routine HEENT Exam Head: Present: normocephalic Eye: Present: EOMI, PERRL ENT: Present: mucous membranes moist - *Routine Neck Exam Present: supple. Absent: lymphadenopathy - *Routine Respiratory Exam Present: decreased breath sounds, respiratory distress, wheezes, crackles diffusely bilaterally - *Routine Cardiovascular Exam Present: RRR - *Routine Abdominal Exam Present: soft, normoactive bowel sounds. Absent: tenderness - *Routine Extremities Exam Present: edema (trace to knees). Absent: cyanosis, clubbing - *Routine Skin Exam Present: warm. Absent: rash - *Routine Neurological Exam Present: alert, oriented X3 Assessment and Plan (1) Acute diastolic (congestive) heart failure Status: Acute Category: Medical Code(s): I50.31 - Acute diastolic (congestive) heart failure (2) Shortness of breath Status: Acute Category: Medical Code(s): R06.02 - Shortness of breath (3) Bilateral lower extremity edema Status: Acute Category: Medical Code(s): R60.0 - Localized edema (4) Mitral regurgitation Status: Acute Category: Medical Code(s): I34.0 - Nonrheumatic mitral (valve) insufficiency (5) Pulmonary hypertension Status: Acute Category: Medical Code(s): I27.20 - Pulmonary hypertension, unspecified (6) Pulmonary nodules Status: Acute Category: Medical Code(s): R91.8 - Other nonspecific abnormal finding of lung field (7) PEACE (acute kidney injury) Status: Acute Category: Medical Code(s): N17.9 - Acute kidney failure, unspecified (8) Pleural effusion Stat
--- NOTE | 2020-08-29 16:05 | PC.NURSE ---
No acute changes. Tolerated vapotherm (40L/70%) well this shift, sat 90-93%. Upon auscultation L Base noted to have crackles, (R) diminished throughout. HR regular. Swelling noted to BLE. Heel protectors in place bilat. Abdomen soft, non-tender w/ active BS. No BM this shift. Condom cath in place to aid in accurate I&O's, smallest size does not fit well so breif in place to catch excess urine. Pt turned and repositioned Q2H. Oral care performed throughout shift. Appetite poor, Boost 's encouraged throughout shift as patient likes these. He is currently sitting up in bed watching TV. Family were @ bedside this AM. Bed safety in place. Call bob w/in reach. No needs @ this time.
[2020-08-30] VITALS (22 sets, daily range): BP systolic 94–122; BP diastolic 39–50; PULSE 70–81; RESP 16–23; TEMP 36.6–37.4; O2SAT 90–97; BMI 22.4
--- NOTE | 2020-08-30 05:30 | PC.NURSE ---
Pt sleeping at this time. Remains on milrinone gtt @ 0.25 mcg/kg/min. BP is currently stable at 107/49. Pt is currently on 40L 70% Vapotherm. O2 sat have been lower 90s with a few episodes of desaturation. Condom catheter in place along with brief. Condom catheter was changed due to leaking. 3 incontinent brief changes this shift. Will continue to monitor.
[2020-08-30 06:33] LABS: Eosinophils # 0.2 K/mm3 (0.0-0.4); Eosinophils % 1.1 % (0.1-12.0); Hematocrit 25.6 % (42.0-52.0); Lymphocytes # 0.6 K/mm3 (0.7-4.5); Mean Corpuscular HGB Conc 31.2 g/dL (31.8-35.4); Mean Corpuscular Hemoglobin 25.8 pg (27.0-31.2); Mean Corpuscular Volume 82.8 fl (80-94); Mean Platelet Volume 8.1 fl (7.4-10.4); Monocytes # 0.8 K/mm3 (0.1-1.0); Monocytes % 4.5 % (1.7-9.3); Neutrophils # 16.9 K/mm3 (1.8-7.8); Neutrophils % 91.4 % (37.0-80.0); Platelet Count 502 K/mm3 (142-424); Red Blood Count 3.09 M/mm3 (4.60-6.20); White Blood Count 18.5 K/mm3 (4.8-10.8)
[2020-08-30 06:38] LABS: Hemoglobin 8.1 g/dL (14.1-18.0)
[2020-08-30 06:39] LABS: MANUAL DIFFERENTIAL MANUAL DIFFERENTIAL (MANUAL DIFF)
[2020-08-30 06:40] LABS: Anion Gap 8.9 mEq/L (5-15); Blood Urea Nitrogen 58 mg/dl (9-20); Calcium 7.5 mg/dl (8.4-10.2); Carbon Dioxide 26 mmol/L (22.0-30.0); Chloride 105 mmol/L (98-107); Creatinine Clearance Estimated 15 mL/min (50-200); Estimated Glomerular Filt Rate 15 ml/min (>60); GFR (African American) 18 ML/MIN (>60); Glucose 116 mg/dl (74-100); Magnesium 1.9 mg/dl (1.6-2.3); Sodium 137 mmol/L (136-145)
[2020-08-30 07:03] LABS: Potassium 2.9 mmoL/L (3.5-5.1)
[2020-08-30 07:48] LABS: Hypochromasia 1+; Lymphocytes % 4 % (10-50); Monocytes % 3 % (2-9); Neutrophils % 91 % (42-76); Platelet Estimate Moderate Increase; Total Cells Counted 100
--- NOTE | 2020-08-30 08:25 | HMH.ACPN2 ---
Internal Medicine - PN: Subj *Date: 08/30/20 *Time: 13:34 Interval history: Clinically Mr. Roman appears much more alert and improved this morning. Color better on walking in the room. Sitting upright in bed eating lunch on exam. Interactive and oriented. Asking appropriate questions. Stable on Vapotherm 70%. Afebrile. Making clear yellow urine in his condom catheter. Remains afebrile. Slight improvement in respiratory distress. Daughter at bedside, questions answered on exam. Patient denies chest pain, nausea, vomiting, diarrhea. No confusion or headaches. Exam Vital signs and Labs for Last 24 Hours: Temp Pulse Resp BP Pulse Ox 98.3 F 75 21 104/45 L 94 L 08/30/20 04:00 08/30/20 07:04 08/30/20 06:00 08/30/20 06:00 08/30/20 08:00 Laboratory Results - last 24 hr 08/29/20 09:48: Specimen Source Left radial, O2 % 70% nrb, ABG pH 7.46 H, ABG pCO2 37.9, ABG pO2 79.0 L, ABG HCO3 26.3 H, ABG Total CO2 27.5 H, ABG O2 Saturation 96, ABG Base Excess 2.4 H, [place]iden Test Acceptable 08/30/20 05:57: WBC 18.5 H, RBC 3.09 L, Hgb 8.1 L, Hct 25.6 L, MCV 82.8, MCH 25.8 L, MCHC 31.2 L, RDW 16.0, Plt Count 502 H, MPV 8.1, Neut % (Auto) 91.4 H, Lymph % (Auto) 3.0 L, [place] % (Auto) 4.5, Eos % (Auto) 1.1, Baso % (Auto) 0.0 L, Neut # (Auto) 16.9 H, Lymph # (Auto) 0.6 L, [place] # (Auto) 0.8, Eos # (Auto) 0.2, Baso # (Auto) 0.0, Total Counted 100, Neutrophils % (Manual) 91 H, Band Neutrophils % 2.0, Lymphocytes % (Manual) 4 L, Monocytes % (Manual) 3, Platelet Estimate Moderate increase, Hypochromasia 1+ 08/30/20 05:57: Sodium 137, Potassium 2.9 L*, Chloride 105, Carbon Dioxide 26, Anion Gap 8.9, BUN 58 H, Creatinine 3.80 H D, Estimated Creat Clear 15, Estimated GFR 15 L*, Est GFR ( Amer) 18 L* D, Glucose 116 H, Calcium 7.5 L, Magnesium 1.9 I & O for Last 24 hours: Intake & Output 08/27/20 08/28/20 08/29/20 08/30/20 23:59 23:59 23:59 23:59 Intake Total 942 / 942 394 / 394 Output Total 1550 / 1550 3605 / 3605 775 / 775 Balance -1490 / -1490 -2663 / -2663 -381 / -381 Weight 78.188 kg 76 kg 74.191 kg 72.15 kg Microbiology Reports for the Last 24 Hours: Microbiology 08/27/20 14:28 Blood Blood Culture - Preliminary NO GROWTH AFTER 48 HOURS 08/27/20 14:28 Blood Blood Culture - Preliminary NO GROWTH AFTER 48 HOURS 08/29/20 06:25 Sputum - Expectorated Sputum Gram Stain - Final Narrative: - Constitutional mild distress, chronically ill appearing, awake and alert on exam, cooperative - *Routine HEENT Exam Head: Present: normocephalic Eye: Present: EOMI, PERRL ENT: Present: mucous membranes moist - *Routine Neck Exam Present: supple. Absent: lymphadenopathy - *Routine Respiratory Exam Present: decreased breath sounds, interval improvement in respiratory distress, wheezes, crackles improving bilaterally - *Routine Cardiovascular Exam Present: RRR - *Routine Abdominal Exam Present: soft, normoactive bowel sounds. Absent: tenderness - *Routine Extremities Exam Present: edema (trace to knees). Absent: cyanosis, clubbing - *Routine Skin Exam Present: warm. Absent: rash - *Routine Neurological Exam Present: alert, oriented X3 Assessment and Plan (1) Acute diastolic (congestive) heart failure Status: Acute Category: Medical Code(s): I50.31 - Acute diastolic (congestive) heart failure (2) Shortness of breath Status: Acute Category: Medical Code(s): R06.02 - Shortness of breath (3) Bilateral lower extremity edema Status: Acute Category: Medical Code(s): R60.0 - Localized edema (4) Mitral regurgitation Status: Acute Category: Medical Code(s): I34.0 - Nonrheumatic mitral (valve) insufficiency (5) Pulmonary hypertension Status: Acute Category: Medical Code(s): I27.20 - Pulmonary hypertension, unspecified (6) Pulmonary nodules Status: Acute Category: Medical Code(s): R91.
--- NOTE | 2020-08-30 09:18 | XR_ITS ---
PROCEDURE INFORMATION: Exam: XR Chest Exam date and time: 08/30/2020 9:18 AM Age: 84 years old Clinical indication: Other: Pna TECHNIQUE: Imaging protocol: XR of the chest. Views: 1 view. COMPARISON: CR XR CHEST PORTABLE 08/28/2020 7:33 PM FINDINGS: Tubes, catheters and devices: Overlying EKG wires Lungs: Patchy bilateral ground-glass opacities may represent multifocal pneumonia.. There may be mild right pleural effusion in the lateral aspect of the right upper lobe Pleural spaces: Unremarkable. No pleural effusion. No pneumothorax. Heart/Mediastinum: Unremarkable. No cardiomegaly. Bones/joints: Unremarkable. IMPRESSION: Patchy bilateral ground-glass opacities may represent multifocal pneumonia..
--- NOTE | 2020-08-30 11:11 | P.PN_ITS ---
Internal Medicine - PN: Subj *Date: 08/30/20 *Time: 11:11 Exam Vital signs and Labs for Last 24 Hours: Temp Pulse Resp BP Pulse Ox 98.3 F 75 20 111/46 L 95 08/30/20 04:00 08/30/20 10:00 08/30/20 10:00 08/30/20 10:00 08/30/20 10:00 Laboratory Results - last 24 hr 08/30/20 05:57: WBC 18.5 H, RBC 3.09 L, Hgb 8.1 L, Hct 25.6 L, MCV 82.8, MCH 25.8 L, MCHC 31.2 L, RDW 16.0, Plt Count 502 H, MPV 8.1, Neut % (Auto) 91.4 H, Lymph % (Auto) 3.0 L, [place] % (Auto) 4.5, Eos % (Auto) 1.1, Baso % (Auto) 0.0 L, Neut # (Auto) 16.9 H, Lymph # (Auto) 0.6 L, [place] # (Auto) 0.8, Eos # (Auto) 0.2, Baso # (Auto) 0.0, Total Counted 100, Neutrophils % (Manual) 91 H, Band Neutrophils % 2.0, Lymphocytes % (Manual) 4 L, Monocytes % (Manual) 3, Platelet Estimate Moderate increase, Hypochromasia 1+ 08/30/20 05:57: Sodium 137, Potassium 2.9 L*, Chloride 105, Carbon Dioxide 26, Anion Gap 8.9, BUN 58 H, Creatinine 3.80 H D, Estimated Creat Clear 15, Estimated GFR 15 L*, Est GFR ( Amer) 18 L* D, Glucose 116 H, Calcium 7.5 L, Magnesium 1.9 I & O for Last 24 hours: Intake & Output 08/27/20 08/28/20 08/29/20 08/30/20 23:59 23:59 23:59 23:59 Intake Total 942 / 942 394 / 394 Output Total 1550 / 1550 3605 / 3605 775 / 775 Balance -1490 / -1490 -2663 / -2663 -381 / -381 Weight 78.188 kg 76 kg 74.191 kg 72.15 kg Microbiology Reports for the Last 24 Hours: Microbiology 08/27/20 14:28 Blood Blood Culture - Preliminary NO GROWTH AFTER 48 HOURS 08/27/20 14:28 Blood Blood Culture - Preliminary NO GROWTH AFTER 48 HOURS 08/29/20 06:25 Sputum - Expectorated Sputum Gram Stain - Final Assessment and Plan (1) Acute diastolic (congestive) heart failure Status: Acute Category: Medical Code(s): I50.31 - Acute diastolic (congestive) heart failure (2) Shortness of breath Status: Acute Category: Medical Code(s): R06.02 - Shortness of breath (3) Bilateral lower extremity edema Status: Acute Category: Medical Code(s): R60.0 - Localized edema (4) Mitral regurgitation Status: Acute Category: Medical Code(s): I34.0 - Nonrheumatic mitral (valve) insufficiency (5) Pulmonary hypertension Status: Acute Category: Medical Code(s): I27.20 - Pulmonary hypertension, unspecified (6) Pulmonary nodules Status: Acute Category: Medical Code(s): R91.8 - Other nonspecific abnormal finding of lung field (7) PEACE (acute kidney injury) Status: Acute Category: Medical Code(s): N17.9 - Acute kidney failure, unspecified (8) Pleural effusion Status: Acute Category: Medical Code(s): J90 - Pleural effusion, not elsewhere classified (9) Essential hypertension Status: Chronic Category: Medical Code(s): I10 - Essential (primary) hypertension (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
--- NOTE | 2020-08-30 11:25 | PC.NURSE ---
Addendum entered by Charlette Lopez RN 08/30/20 11:59: Rad @ bedside @ this time to obtain CXR Original Note: 0914 - Spoke w/ Dr. Hudson this AM via phone. updated on pt, new orders for repeat sputum, repeat UA and for CXR to be obtained. RB+V. Rad made aware of CXR @ [id number]. Damaris in Rad called @ 1104, states she is still aware of CXR and is in the ER still w/ pt's and will then come to floor.
[2020-08-30 11:56] LABS: Microscopic, Urine URINE MICROSCOPIC (MICROSCOPIC)
[2020-08-30 12:16] LABS: Appearance,Urine CLEAR (Clear); Bilirubin,Urine Negative (Negative); Blood, Urine TRACE-I (Negative); Color,Urine YELLOW (Yellow); Glucose,Urine (UA) Negative (Negative); Ketones,Urine Negative (Negative); Leukocyte Esterase,Urine Negative (Negative); Nitrate,Urine Negative (Negative); PH,Urine 5.5 (5.0-8.5); Protein,Urine Negative (Negative); Specific Gravity, Urine 1.025 (1.005-1.030); Urobilinogen,Urine 0.2 EU/dl (0.2)
[2020-08-30 12:20] LABS: Squamous Epithelial Cell,Urine Occasional #/hpf (0-5)
[2020-08-30 15:21] LABS: Procalcitonin 2.14 ng/mL (0.0-2.0); Vancomycin,Trough 20.8 ug/mL (5.0-10.0)
--- NOTE | 2020-08-30 15:45 | PC.NURSE ---
Remains on milrinone gtt. Vapotherm currently 40L/70%, RT notified to slowly wean FIO2. Denies being SOA. He was assisted by this nurse and daughter up to recliner, pt tolerated well w/ periods of rest. SPO2 did decrease to 78% w/ exertion but he was able to recover after sitting and resting in chair. He is currently sitting up watching TV. No complaints voiced. UOP 100 cc this shift. No BM. Pt educated on use of incentive spirom. He was able to demonstrate appropriate use and understanding. IS @ best = 1000. Call bob w/in reach. No needs @ this time.
[2020-08-30 21:42] LABS: Anion Gap 11.1 mEq/L (5-15); Blood Urea Nitrogen 63 mg/dl (9-20); Calcium 7.4 mg/dl (8.4-10.2); Carbon Dioxide 23 mmol/L (22.0-30.0); Chloride 103 mmol/L (98-107); Creatinine Clearance Estimated 13 mL/min (50-200); Estimated Glomerular Filt Rate 13 ml/min (>60); GFR (African American) 16 ML/MIN (>60); Glucose 155 mg/dl (74-100); Magnesium 1.8 mg/dl (1.6-2.3); Potassium 3.1 mmoL/L (3.5-5.1); Sodium 134 mmol/L (136-145)
[2020-08-31] VITALS (22 sets, daily range): BP systolic 105–145; BP diastolic 45–63; PULSE 70–88; RESP 15–20; TEMP 36.6–36.9; O2SAT 40–94; BMI 22.4
--- NOTE | 2020-08-31 04:04 | PC.NURSE ---
No acute changes noted this shift. Pt was up to chair early part of shift. Tolerated it well. Was assisted back to bed with assist x2. Pt has use urinal x1 this shift and 1 incontinent episode. 200 ml urine output. Urine dark yellow.VS currently stable. BP currently 105/46. HR 76, O2 sat 91% on Vapotherm @ 40L 60%. Lungs noted to have fine crackles to bilateral bases. BS active. No BM this shift. Medications administered per jun. Milrinone infusing @ 0.125 mcg/kg/min. No other concerns. Will continue to monitor.
[2020-08-31 06:21] LABS: Basophils % 0.1 % (0.1-2.0); Eosinophils # 0.2 K/mm3 (0.0-0.4); Eosinophils % 1.4 % (0.1-12.0); Hematocrit 26.2 % (42.0-52.0); Hemoglobin 8.1 g/dL (14.1-18.0); Lymphocytes # 0.6 K/mm3 (0.7-4.5); Lymphocytes % 3.6 % (10-50); Mean Corpuscular HGB Conc 30.8 g/dL (31.8-35.4); Mean Corpuscular Hemoglobin 25.5 pg (27.0-31.2); Mean Corpuscular Volume 82.7 fl (80-94); Mean Platelet Volume 8.4 fl (7.4-10.4); Monocytes # 0.7 K/mm3 (0.1-1.0); Monocytes % 4.2 % (1.7-9.3); Neutrophils # 15.6 K/mm3 (1.8-7.8); Neutrophils % 90.7 % (37.0-80.0); Platelet Count 469 K/mm3 (142-424); Red Blood Count 3.17 M/mm3 (4.60-6.20); White Blood Count 17.2 K/mm3 (4.8-10.8)
[2020-08-31 06:24] LABS: Anion Gap 8.7 mEq/L (5-15); Blood Urea Nitrogen 65 mg/dl (9-20); Calcium 7.7 mg/dl (8.4-10.2); Carbon Dioxide 25 mmol/L (22.0-30.0); Chloride 105 mmol/L (98-107); Creatinine Clearance Estimated 13 mL/min (50-200); Estimated Glomerular Filt Rate 13 ml/min (>60); GFR (African American) 15 ML/MIN (>60); Glucose 110 mg/dl (74-100); MANUAL DIFFERENTIAL MANUAL DIFFERENTIAL (MANUAL DIFF); Magnesium 1.9 mg/dl (1.6-2.3); Potassium 3.7 mmoL/L (3.5-5.1); Sodium 135 mmol/L (136-145)
--- NOTE | 2020-08-31 07:22 | HMH.ACPN2 ---
Internal Medicine - PN: Subj *Date: 08/31/20 *Time: 09:50 Interval history: Mr. Roman did well overnight. Tolerating good p.o. intake. Reviewed labs this morning, creatinine appears to be stabilizing. Stopping milrinone this morning. Blood pressure improved. Able to wean Vapotherm to 60%. Saturations in the mid 90s. Remains afebrile. Up and out of bed yesterday to the bedside chair. Overall color looks good today. Denies chest pain, nausea, vomiting, diarrhea. Voiding independently. Exam Vital signs and Labs for Last 24 Hours: Temp Pulse Resp BP Pulse Ox 98.4 F 82 20 128/47 L 91 L 08/31/20 04:00 08/31/20 06:18 08/31/20 05:00 08/31/20 05:00 08/31/20 06:18 Laboratory Results - last 24 hr 08/30/20 05:57: Total Counted 100, Neutrophils % (Manual) 91 H, Band Neutrophils % 2.0, Lymphocytes % (Manual) 4 L, Monocytes % (Manual) 3, Platelet Estimate Moderate increase, Hypochromasia 1+ 08/30/20 09:19: Urine Color Yellow, Urine Appearance Clear, Urine pH 5.5, Ur Specific [place] 1.025, Urine Protein Negative, Urine Glucose (UA) Negative, Urine Ketones Negative, Urine Blood Trace-i, Urine Nitrate Negative, Urine Bilirubin Negative, Urine Urobilinogen 0.2, Ur Leukocyte Esterase Negative, Urine RBC None, Urine WBC 3-5, Ur Squamous Epith Cells Occasional, Urine Bacteria None 08/30/20 14:35: Vancomycin Trough 20.8 H 08/30/20 14:35: Procalcitonin 2.14 H 08/30/20 21:03: Sodium 134 L, Potassium 3.1 L, Chloride 103, Carbon Dioxide 23, Anion Gap 11.1, BUN 63 H, Creatinine 4.30 H, Estimated Creat Clear 13, Estimated GFR 13 L*, Est GFR ( Amer) 16 L*, Glucose 155 H D, Calcium 7.4 L, Magnesium 1.8 08/31/20 06:01: WBC 17.2 H, RBC 3.17 L, Hgb 8.1 L, Hct 26.2 L, MCV 82.7, MCH 25.5 L, MCHC 30.8 L, RDW 16.0, Plt Count 469 H, MPV 8.4, Neut % (Auto) 90.7 H, Lymph % (Auto) 3.6 L, [place] % (Auto) 4.2, Eos % (Auto) 1.4, Baso % (Auto) 0.1, Neut # (Auto) 15.6 H, Lymph # (Auto) 0.6 L, [place] # (Auto) 0.7, Eos # (Auto) 0.2, Baso # (Auto) 0.0 08/31/20 06:01: Sodium 135 L, Potassium 3.7, Chloride 105, Carbon Dioxide 25, Anion Gap 8.7, BUN 65 H, Creatinine 4.50 H, Estimated Creat Clear 13, Estimated GFR 13 L*, Est GFR ( Amer) 15 L*, Glucose 110 H D, Calcium 7.7 L, Magnesium 1.9 I & O for Last 24 hours: Intake & Output 08/28/20 08/29/20 08/30/20 08/31/20 23:59 23:59 23:59 23:59 Intake Total 942 / 942 394 / 394 599 / 599 Output Total 3605 / 3605 775 / 775 100 / 100 200 / 200 Balance -2663 / -2663 -381 / -381 499 / 499 -200 / -200 Weight 76 kg 77.167 kg 76.657 kg 76.714 kg Microbiology Reports for the Last 24 Hours: Microbiology 08/30/20 12:40 Sputum - Expectorated Sputum Gram Stain - Final Narrative: - Constitutional mild distress, chronically ill appearing, awake and alert on exam, cooperative - *Routine HEENT Exam Head: Present: normocephalic Eye: Present: EOMI, PERRL ENT: Present: mucous membranes moist - *Routine Neck Exam Present: supple. Absent: lymphadenopathy - *Routine Respiratory Exam Present: Fair air movement bilaterally, interval improvement in respiratory distress, no significant wheeze on exam this morning. Crackles mainly in left lower lung base in the posterior lung field. Improved aeration bilaterally - *Routine Cardiovascular Exam Present: RRR - *Routine Abdominal Exam Present: soft, normoactive bowel sounds. Absent: tenderness - *Routine Extremities Exam Present: No peripheral edema, cyanosis, clubbing - *Routine Skin Exam Present: warm. Absent: rash - *Routine Neurological Exam Present: alert, oriented X3 Assessment and Plan (1) Acute diastolic (congestive) heart failure Status: Acute Category: Medical Code(s): I50.31 - Acute diastolic (congestive) heart failure (2) Shortness of breath Status: Acute Category: Medical Code(s): R06.02 - Shortness of breath (3) Bilateral lower extremity edema Status: Acute Category: Medical Code(s): R60.0 - Localized edema
--- NOTE | 2020-08-31 07:34 | PC.NURSE ---
Kailey gtt turned off per MD Gomez
[2020-08-31 10:00] LABS: Eosinophils % 1 % (0-3); Hypochromasia 3+; Lymphocytes % 2 % (10-50); Microcytosis 1+; Monocytes % 10 % (2-9); Neutrophils % 87 % (42-76); Platelet Estimate Normal; Total Cells Counted 100
--- NOTE | 2020-08-31 10:16 | HMH.PHACONS ---
- Pharmacy Consult Date: 08/31/20 Time: 10:16 Referring provider: DR. HUFF Reason for Consult:: VANCOMYCIN TROUGH LEVEL Allergies and ADEs:: Allergies Allergy/AdvReac Type Severity Reaction Status Date / Time No Known Allergies Allergy Verified 08/17/20 12:41 Home Medications:: Home Medications Medication Instructions Recorded Confirmed Type Buspirone HCl [Buspar 10mg 10 mg PO BID 08/17/20 08/27/20 History tablet] Fluoxetine HCl [Prozac] 40 mg PO BID 08/17/20 08/27/20 History Gabapentin 600 mg PO BID 08/17/20 08/27/20 History Hydrocodone/Acetaminophen 1 each PO TIDP PRN 08/17/20 08/27/20 History [Hydrocodone-Acetamin 7.5-325] Lansoprazole 30 mg PO DAILY 08/17/20 08/27/20 History Ropinirole HCl 1 mg PO BID 08/17/20 08/27/20 History carvediloL [Carvedilol 3.125mg Tab] 3.125 mg PO BID 08/17/20 08/27/20 History Doxycycline Hyclate [Doxycycline 100 mg PO BID 8 Days #16 cap 08/25/20 08/27/20 Rx 100mg Capsule] Ipratropium/Albuterol Sulfate 3 ml IH Q6HP PRN 30 Days #120 08/25/20 08/27/20 Rx [Duoneb 3mL neb] ampul.neb Mupirocin [Bactroban 2% Ointment 0 gm TP TID 5 Days #1 tube 08/25/20 08/27/20 Rx 22gm tube] Height: 1.85 m Weight: 76.714 kg Laboratory Results:: Laboratory Results - last 24 hr 08/30/20 09:19: Urine Color Yellow, Urine Appearance Clear, Urine pH 5.5, Ur Specific [place] 1.025, Urine Protein Negative, Urine Glucose (UA) Negative, Urine Ketones Negative, Urine Blood Trace-i, Urine Nitrate Negative, Urine Bilirubin Negative, Urine Urobilinogen 0.2, Ur Leukocyte Esterase Negative, Urine RBC None, Urine WBC 3-5, Ur Squamous Epith Cells Occasional, Urine Bacteria None 08/30/20 14:35: Vancomycin Trough 20.8 H 08/30/20 14:35: Procalcitonin 2.14 H 08/30/20 21:03: Sodium 134 L, Potassium 3.1 L, Chloride 103, Carbon Dioxide 23, Anion Gap 11.1, BUN 63 H, Creatinine 4.30 H, Estimated Creat Clear 13, Estimated GFR 13 L*, Est GFR ( Amer) 16 L*, Glucose 155 H D, Calcium 7.4 L, Magnesium 1.8 08/31/20 06:01: WBC 17.2 H, RBC 3.17 L, Hgb 8.1 L, Hct 26.2 L, MCV 82.7, MCH 25.5 L, MCHC 30.8 L, RDW 16.0, Plt Count 469 H, MPV 8.4, Neut % (Auto) 90.7 H, Lymph % (Auto) 3.6 L, [place] % (Auto) 4.2, Eos % (Auto) 1.4, Baso % (Auto) 0.1, Neut # (Auto) 15.6 H, Lymph # (Auto) 0.6 L, [place] # (Auto) 0.7, Eos # (Auto) 0.2, Baso # (Auto) 0.0, Total Counted 100, Neutrophils % (Manual) 87 H, Lymphocytes % (Manual) 2 L, Monocytes % (Manual) 10 H, Eosinophils % (Manual) 1, Platelet Estimate Normal, Hypochromasia 3+, Microcytosis 1+ 08/31/20 06:01: Sodium 135 L, Potassium 3.7, Chloride 105, Carbon Dioxide 25, Anion Gap 8.7, BUN 65 H, Creatinine 4.50 H, Estimated Creat Clear 13, Estimated GFR 13 L*, Est GFR ( Amer) 15 L*, Glucose 110 H D, Calcium 7.7 L, Magnesium 1.9 Medical History: Reports:: Cancer, Heart Murmur, Hypertension, Valvular Heart Disease Denies:: Diabetes Mellitus Type 1, Diabetes Mellitus Type 2 Assessment and Plan (1) Acute diastolic (congestive) heart failure Status: Acute Category: Medical Code(s): I50.31 - Acute diastolic (congestive) heart failure (2) Shortness of breath Status: Acute Category: Medical Code(s): R06.02 - Shortness of breath (3) Bilateral lower extremity edema Status: Acute Category: Medical Code(s): R60.0 - Localized edema (4) Mitral regurgitation Status: Acute Category: Medical Code(s): I34.0 - Nonrheumatic mitral (valve) insufficiency (5) Pulmonary hypertension Status: Acute Category: Medical Code(s): I27.20 - Pulmonary hypertension, unspecified (6) Pulmonary nodules Status: Acute Category: Medical Code(s): R91.8 - Other nonspecific abnormal finding of lung field (7) PEACE (acute kidney injury) Status: Acute Category: Medical Code(s): N17.9 - Acute kidney failure, unspecified (8) Pleural effusion Status: Acute Category: Medical Code(s): J90 - Pleural effusion, not elsewhere classified (9) Essential hypertension S
--- NOTE | 2020-08-31 14:49 | PC.NURSE ---
No acute changes noted this shift, remains on vapotherm at 40L/60% tolerating well, denies any soa, patient is alert and oriented x4, lung sounds diminished in bl bases with scattered fine crackles noted, HR reg, no edema noted, peripheral pulses intact, abd soft and nontender, active bowel sounds in all quads, voids per urinal, urine yellow and cloudy, no s/s of distress noted at this time, vss, will continue to monitor.
[2020-09-01] VITALS (21 sets, daily range): BP systolic 101–141; BP diastolic 47–78; PULSE 70–89; RESP 14–32; TEMP 36.7–36.9; O2SAT 89–96; BMI 22.4
--- NOTE | 2020-09-01 01:10 | PC.NURSE ---
He continues on the vapotherm. He O2 was decreasing to the mid 80s at the beginning of the shift. Respiratory incrased his FiO2 to 65% and it is currently at 40LPM. He is A&Ox3. He is MOHEGAN. He denies pain and SOA. He is voiding per urinal. Urine is yellow, clear.
--- NOTE | 2020-09-01 01:15 | PC.NURSE ---
Respiratory weaned his O2 back to 40LPM 55%FiO2.
--- NOTE | 2020-09-01 01:53 | PC.NURSE ---
Vapotherm increased to 40LPM 60% FiO2 at this time.
[2020-09-01 06:13] LABS: Basophils % 0.2 % (0.1-2.0); Eosinophils # 0.2 K/mm3 (0.0-0.4); Eosinophils % 1.4 % (0.1-12.0); Hematocrit 25.1 % (42.0-52.0); Lymphocytes # 0.6 K/mm3 (0.7-4.5); Lymphocytes % 4.1 % (10-50); Mean Corpuscular Hemoglobin 25.6 pg (27.0-31.2); Mean Platelet Volume 8.8 fl (7.4-10.4); Monocytes # 0.8 K/mm3 (0.1-1.0); Monocytes % 5.4 % (1.7-9.3); Neutrophils # 13.1 K/mm3 (1.8-7.8); Neutrophils % 88.9 % (37.0-80.0); Platelet Count 468 K/mm3 (142-424); Red Blood Count 3.14 M/mm3 (4.60-6.20); White Blood Count 14.8 K/mm3 (4.8-10.8)
[2020-09-01 06:27] LABS: MANUAL DIFFERENTIAL MANUAL DIFFERENTIAL (MANUAL DIFF)
[2020-09-01 06:34] LABS: Chloride 102 mmol/L (98-107)
[2020-09-01 06:35] LABS: Potassium 3.6 mmoL/L (3.5-5.1); Sodium 133 mmol/L (136-145)
[2020-09-01 06:37] LABS: Blood Urea Nitrogen 72 mg/dl (9-20); Creatinine Clearance Estimated 13 mL/min (50-200); Estimated Glomerular Filt Rate 13 ml/min (>60); GFR (African American) 15 ML/MIN (>60)
[2020-09-01 06:38] LABS: Anion Gap 12.6 mEq/L (5-15); Calcium 7.6 mg/dl (8.4-10.2); Carbon Dioxide 22 mmol/L (22.0-30.0); Glucose 102 mg/dl (74-100); Magnesium 1.9 mg/dl (1.6-2.3)
--- NOTE | 2020-09-01 07:17 | HMH.ACPN2 ---
Internal Medicine - PN: Subj *Date: 09/01/20 *Time: 08:47 Interval history: Mr. Roman continues to appear stable this morning. Tolerating Vapotherm at 60%. Saturations in the high 80s to low 90s overnight depending on coughing and straining. Making adequate urine output. Getting on the bedpan this morning at time of interview. Denies chest pain, nausea or vomiting. Afebrile. Blood pressure appropriate. Reviewed labs this morning, kidney function stabilized. Exam Vital signs and Labs for Last 24 Hours: Temp Pulse Resp BP Pulse Ox 98.0 F 79 17 125/55 L 93 L 09/01/20 04:00 09/01/20 06:00 09/01/20 04:00 09/01/20 06:00 09/01/20 06:00 Laboratory Results - last 24 hr 08/31/20 06:01: Total Counted 100, Neutrophils % (Manual) 87 H, Lymphocytes % (Manual) 2 L, Monocytes % (Manual) 10 H, Eosinophils % (Manual) 1, Platelet Estimate Normal, Hypochromasia 3+, Microcytosis 1+ 09/01/20 06:01: WBC 14.8 H, RBC 3.14 L, Hgb 8.0 L, Hct 25.1 L, MCV 80.0, MCH 25.6 L, MCHC 32.0, RDW 16.0, Plt Count 468 H, MPV 8.8, Neut % (Auto) 88.9 H, Lymph % (Auto) 4.1 L, [place] % (Auto) 5.4, Eos % (Auto) 1.4, Baso % (Auto) 0.2, Neut # (Auto) 13.1 H, Lymph # (Auto) 0.6 L, [place] # (Auto) 0.8, Eos # (Auto) 0.2, Baso # (Auto) 0.0 09/01/20 06:01: Sodium 133 L, Potassium 3.6, Chloride 102 I & O for Last 24 hours: Intake & Output 08/29/20 08/30/20 08/31/20 09/01/20 23:59 23:59 23:59 23:59 Intake Total 394 / 394 599 / 599 710 / 710 60 / 60 Output Total 775 / 775 100 / 100 1150 / 1150 240 / 240 Balance -381 / -381 499 / 499 -440 / -440 -180 / -180 Weight 77.167 kg 76.657 kg 76.714 kg 76.685 kg Microbiology Reports for the Last 24 Hours: Microbiology 08/29/20 06:25 Sputum - Expectorated Sputum Gram Stain - Final 08/29/20 06:25 Sputum - Expectorated Sputum Sputum Culture - Preliminary Narrative: - Constitutional mild distress, chronically ill appearing, awake and alert on exam, cooperative - *Routine HEENT Exam Head: Present: normocephalic Eye: Present: EOMI, PERRL ENT: Present: mucous membranes moist - *Routine Neck Exam Present: supple. Absent: lymphadenopathy - *Routine Respiratory Exam Present: Fair air movement bilaterally, interval improvement in respiratory distress, no significant wheeze on exam this morning. Crackles mainly in left lower lung base in the posterior lung field. Improved aeration bilaterally - *Routine Cardiovascular Exam Present: RRR - *Routine Abdominal Exam Present: soft, normoactive bowel sounds. Absent: tenderness - *Routine Extremities Exam Present: No peripheral edema, cyanosis, clubbing - *Routine Skin Exam Present: warm. Absent: rash - *Routine Neurological Exam Present: alert, oriented X3 Assessment and Plan (1) Acute diastolic (congestive) heart failure Status: Acute Category: Medical Code(s): I50.31 - Acute diastolic (congestive) heart failure (2) Shortness of breath Status: Acute Category: Medical Code(s): R06.02 - Shortness of breath (3) Bilateral lower extremity edema Status: Acute Category: Medical Code(s): R60.0 - Localized edema (4) Mitral regurgitation Status: Acute Category: Medical Code(s): I34.0 - Nonrheumatic mitral (valve) insufficiency (5) Pulmonary hypertension Status: Acute Category: Medical Code(s): I27.20 - Pulmonary hypertension, unspecified (6) Pulmonary nodules Status: Acute Category: Medical Code(s): R91.8 - Other nonspecific abnormal finding of lung field (7) PEACE (acute kidney injury) Status: Acute Category: Medical Code(s): N17.9 - Acute kidney failure, unspecified (8) Pleural effusion Status: Acute Category: Medical Code(s): J90 - Pleural effusion, not elsewhere classified (9) Essential hypertension Status: Chronic Category: Medical Code(s): I10 - Essential (primary) hypertension (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
--- NOTE | 2020-09-01 07:38 | PC.NURSE ---
notified Dr. Gomez that Cr is 4.50
[2020-09-01 07:48] LABS: Procalcitonin 1.63 ng/mL (0.0-2.0)
--- NOTE | 2020-09-01 08:51 | HMH.PNCARD ---
Subjective Date: 09/01/20 Time: 08:00 Principal diagnosis: Hypoxia and pulmonary hypertension Interval history: This is an 84-year-old white gentleman who was admitted to the hospital for CHF exacerbation on 08/27/2020. Patient is alert and oriented x3 this a.m. Daughter is at the bedside. Patient did have an uneventful night. Patient denies chest pain, tightness or pressure. Patient denies palpitations or dizziness. Denies fever, vomiting or diarrhea. Patient does complain of increased shortness of breath. Patient is noted to be on a Vapotherm 70%. Patient continues to pulse ox in the low 90s. Patient states he just feels like he cannot catch his breath. Vital signs are stable. Patient noted to have bilateral lower extremity edema which has been resolved with diuretics. Patient does continue to be on fluid restrictions and diuretics are on hold currently. Creatinine level remains elevated at 4.5 which seems to be stable at this time. Pulmonology is managing the pleural effusions. Echocardiogram revealed EF 50% with moderate mitral and moderate to severe tricuspid regurgitation. Severe pulmonary hypertension noted. Due to congestive heart failure and severe pulmonary hypertension, would recommend right and left heart catheterization to determine the severity of the CHF and pulmonary hypertension. Due to patient's renal status unable to perform right and left heart catheterization at this time. Pt has been on a milrinone continuous drip (per pharmacy dose)to reduce afterload, which pt did diuresis appropriately. H&H is noted as low. This is being managed by PCP. Prognosis for patient is poor. Patient is just clinically unstable for right and left heart cath to determine the severity of pulmonary hypertension due to the worsening PEACE. PCP has been speaking with family regarding CODE STATUS. Will defer this to PCP. Discussed plan of care with Dr. Galindo. Patient is clinically unstable at this time to perform right and left heart catheterization for pulmonary hypertension, due to worsening PEACE, even though creatinine is remaining stable at 4.50. Creatinine level is remaining stable in the past few days at 4.50. Patient seems to be tolerating the creatinine level between 3-4.50. PCP has been holding diuretics for the past day. Will obtain limited echo cardiogram to assess for RSVP. Will defer management of low H&H to PCP. Ultimate goal for this patient at this time is to decrease afterload causing increase severity of the pulmonary hypertension. Continue diuretics as indicated. Prognosis for this patient is poor. PCP is speaking with family/pt in regards to CODE STATUS. Please notify cardiology of any changes in patient status. Thank you for allowing cardiology to participate in the care of this patient. Exam Vital signs and Labs for Last 24 Hours: Temp Pulse Resp BP Pulse Ox 98.5 F 79 17 125/55 L 93 L 09/01/20 08:29 09/01/20 06:00 09/01/20 04:00 09/01/20 06:00 09/01/20 06:00 Laboratory Results - last 24 hr 08/31/20 06:01: Total Counted 100, Neutrophils % (Manual) 87 H, Lymphocytes % (Manual) 2 L, Monocytes % (Manual) 10 H, Eosinophils % (Manual) 1, Platelet Estimate Normal, Hypochromasia 3+, Microcytosis 1+ 09/01/20 06:01: WBC 14.8 H, RBC 3.14 L, Hgb 8.0 L, Hct 25.1 L, MCV 80.0, MCH 25.6 L, MCHC 32.0, RDW 16.0, Plt Count 468 H, MPV 8.8, Neut % (Auto) 88.9 H, Lymph % (Auto) 4.1 L, Lucas % (Auto) 5.4, Eos % (Auto) 1.4, Baso % (Auto) 0.2, Neut # (Auto) 13.1 H, Lymph # (Auto) 0.6 L, Lucas # (Auto) 0.8, Eos # (Auto) 0.2, Baso # (Auto) 0.0 09/01/20 06:01: Sodium 133 L, Potassium 3.6, Chloride 102, Carbon Dioxide 22, Anion Gap 12.6, BUN 72 H, Creatinine 4.50 H, Estimated Creat Clear 13, Estimated GFR 13 L*, Est GFR ( Amer) 15 L*, Glucose 102 H, Calcium 7.6 L, Magnesium 1.9 09/01/20 06:01: Procalcitonin 1.63 I & O for Last 24 hours: Intake & Output 08/29/20 08/30/20 08/31/20 09/01/20 23:59 23:59 23:59 23:59
--- NOTE | 2020-09-01 09:24 | HMH.ACPN ---
Internal Medicine - PN: Subj *Date: 09/01/20 *Time: 09:24 Exam Vital signs and Labs for Last 24 Hours: Temp Pulse Resp BP Pulse Ox 98.5 F 79 17 125/55 L 93 L 09/01/20 08:29 09/01/20 06:00 09/01/20 04:00 09/01/20 06:00 09/01/20 06:00 Laboratory Results - last 24 hr 08/31/20 06:01: Total Counted 100, Neutrophils % (Manual) 87 H, Lymphocytes % (Manual) 2 L, Monocytes % (Manual) 10 H, Eosinophils % (Manual) 1, Platelet Estimate Normal, Hypochromasia 3+, Microcytosis 1+ 09/01/20 06:01: WBC 14.8 H, RBC 3.14 L, Hgb 8.0 L, Hct 25.1 L, MCV 80.0, MCH 25.6 L, MCHC 32.0, RDW 16.0, Plt Count 468 H, MPV 8.8, Neut % (Auto) 88.9 H, Lymph % (Auto) 4.1 L, [place] % (Auto) 5.4, Eos % (Auto) 1.4, Baso % (Auto) 0.2, Neut # (Auto) 13.1 H, Lymph # (Auto) 0.6 L, [place] # (Auto) 0.8, Eos # (Auto) 0.2, Baso # (Auto) 0.0 09/01/20 06:01: Sodium 133 L, Potassium 3.6, Chloride 102, Carbon Dioxide 22, Anion Gap 12.6, BUN 72 H, Creatinine 4.50 H, Estimated Creat Clear 13, Estimated GFR 13 L*, Est GFR ( Amer) 15 L*, Glucose 102 H, Calcium 7.6 L, Magnesium 1.9 09/01/20 06:01: Procalcitonin 1.63 I & O for Last 24 hours: Intake & Output 08/29/20 08/30/20 08/31/20 09/01/20 23:59 23:59 23:59 23:59 Intake Total 394 / 394 599 / 599 710 / 710 60 / 60 Output Total 775 / 775 100 / 100 1150 / 1150 240 / 240 Balance -381 / -381 499 / 499 -440 / -440 -180 / -180 Weight 77.167 kg 76.657 kg 76.714 kg 76.685 kg Microbiology Reports for the Last 24 Hours: Microbiology 08/29/20 06:25 Sputum - Expectorated Sputum Gram Stain - Final 08/29/20 06:25 Sputum - Expectorated Sputum Sputum Culture - Preliminary Assessment and Plan (1) Acute diastolic (congestive) heart failure Status: Acute Category: Medical Code(s): I50.31 - Acute diastolic (congestive) heart failure (2) Shortness of breath Status: Acute Category: Medical Code(s): R06.02 - Shortness of breath (3) Bilateral lower extremity edema Status: Acute Category: Medical Code(s): R60.0 - Localized edema (4) Mitral regurgitation Status: Acute Category: Medical Code(s): I34.0 - Nonrheumatic mitral (valve) insufficiency (5) Pulmonary hypertension Status: Acute Category: Medical Code(s): I27.20 - Pulmonary hypertension, unspecified (6) Pulmonary nodules Status: Acute Category: Medical Code(s): R91.8 - Other nonspecific abnormal finding of lung field (7) PEACE (acute kidney injury) Status: Acute Category: Medical Code(s): N17.9 - Acute kidney failure, unspecified (8) Pleural effusion Status: Acute Category: Medical Code(s): J90 - Pleural effusion, not elsewhere classified (9) Essential hypertension Status: Chronic Category: Medical Code(s): I10 - Essential (primary) hypertension (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
--- NOTE | 2020-09-01 09:51 | HMH.PULMPN ---
Internal Medicine - PN: Subj *Date: 09/01/20 *Time: 09:51 Interval history: No acute respiratory vents over the weekend. Patient respiratory status remained stable. Exam - Constitutional Constitutional:: Present: no acute distress, comfortable - HENMT Exam HENMT: Present: normocephalic, atraumatic - Eye Exam Eyes:: Present: normal appearance both eyes and related structures - Neck Exam Neck:: Present: normal visual inspection - Respiratory Exam Respiratory:: Present: able to speak in complete sentences, respiratory distress, crackles. Absent: wheezing - Cardiovascular Exam Cardiac:: Present: S1, S2 - GI Exam GI:: Present: soft - Skin Exam Skin: Present: warm, no rash - Neurological Exam Neurological: Present: alert, awake, normal cognition - Extremities Exam Extremities: Present: no cyanosis, no clubbing, no edema Assessment and Plan (1) Acute diastolic (congestive) heart failure Status: Acute Category: Medical Code(s): I50.31 - Acute diastolic (congestive) heart failure (2) Shortness of breath Status: Acute Category: Medical Code(s): R06.02 - Shortness of breath (3) Bilateral lower extremity edema Status: Acute Category: Medical Code(s): R60.0 - Localized edema (4) Mitral regurgitation Status: Acute Category: Medical Code(s): I34.0 - Nonrheumatic mitral (valve) insufficiency (5) Pulmonary hypertension Status: Acute Category: Medical Code(s): I27.20 - Pulmonary hypertension, unspecified (6) Pulmonary nodules Status: Acute Category: Medical Code(s): R91.8 - Other nonspecific abnormal finding of lung field (7) PEACE (acute kidney injury) Status: Acute Category: Medical Code(s): N17.9 - Acute kidney failure, unspecified (8) Pleural effusion Status: Acute Category: Medical Code(s): J90 - Pleural effusion, not elsewhere classified (9) Essential hypertension Status: Chronic Category: Medical Code(s): I10 - Essential (primary) hypertension (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cquired absence of kidney - Assessment and plan all Dx Assessment and Plan for all problems:: #Acute hypoxic respiratory failure: #MRSA pneumonia: #HAP #Pulmonary hypertension diagnosed by echocardiogram with RVSP at [age]-year-old male with no prior respiratory complaints not on any oxygen at home, recently admitted to the hospital for MRSA bacteremia and pneumonia, patient was treated with 7 days of Vanc + cefepime and was discharged vancomycin and on 2 L nasal cannula presented to the hospital worsening respiratory failure needing Ventimask 50% to maintain his oxygen saturations. Patient during his recent admission also found to be volume overload with bilateral pleural effusions status post bilateral thoracentesis with transudate effusions. Awaiting cytopathology. Patient on this admission appeared to be significantly volume overload both on physical examination and with a BNP of greater than 22,000 and was initiated on aggressive diuresis. Patient volume status significantly improved today but however his creatinine increased to 4.5 has been stable. Cardiology was also consulted given concerns for pulmonary hypertension and patient was initiated on milrinone by cardiology to facilitate diuresis and milrinone was discontinued yesterday. Chest x-ray over the weekend appears relatively stable with respect airspace disease. Venous Doppler of bilateral lower extremity negative for DVT His vancomycin was discontinued yesterday as patient completed 14 days of total course on 10 days post negative blood cultures from 08/20. Was also initiated on cefepime over the weekend for possible HAP. We will follow on final sputum cultures, perlim staining showing possible yeast and rare GPC. UA no evidence of infection. Repeat blood cultures on this admission no growth. Afebrile. Hemodynamically stable. Renal function worsened,
[2020-09-01 10:27] LABS: Eosinophils % 1 % (0-3); Hypochromasia 3+; Lymphocytes % 6 % (10-50); Monocytes % 2 % (2-9); Neutrophils % 91 % (42-76); Total Cells Counted 100
[2020-09-01 10:30] LABS: Microcytosis 1+
[2020-09-01 10:31] LABS: Platelet Estimate Clumped
--- NOTE | 2020-09-01 10:54 | CA_ITS ---
APPROVED REPORT EXAM: Comprehensive 2D, Doppler, and color-flow Echocardiogram Music Artist: Thea Rivera RT(R) Ht: 6 ft 1 in Wt: 169lbs BSA: 2.00 BP: 125/55 mmHg Indications: Severe pulmonary HTN on 08/27/20 echo, recheck RVSP today, limited echo ordered to assess RVSP and PA pressures today M-Mode Dimensions RVDd 2.72 cm (0.9-2.6) LVDd 5.26 cm (3.5-5.7) LVDs 4.19 cm (3.5-5.7) IVSd 0.86 cm (0.6-1.1) PWd 0.93 cm (0.6-1.1) EF (Teich) 41.30% FS 20.30% EDV (Teich) 133.00 mL TAPSE 1.83 (<1.7) ESV (Teich) 78.10 mL Tricuspid Valve TR P. Velocity 383.00 cm/s RAP Estimate 15.00 mmHg RVSP 73.80 mmHg Left Ventricle Left atrium is moderately enlarged, left ventricle is normal size, mild concentric left ventricular hypertrophy, visually estimated ejection fraction 55% with no regional wall motion abnormality, diastolic parameters are inconclusive. Right Ventricle Right atrium and right ventricle moderately enlarged with normal contractility. Aortic Valve Aortic valve is thickened and calcified leaflet continue to display mobility, aortic outflow velocity is not according study. Mitral Valve Mitral valve leaflets are minimally thickened, there is moderate mitral regurgitation. Tricuspid Valve Tricuspid valve leaflets are minimally thickened, there is moderate tricuspid regurgitation, calculated right ventricular systolic pressure is 74 mmHg. Pulmonic Valve Pulmonic valve is poorly visualized. Great Vessels Aortic root is normal size. Pericardium No significant pericardial effusion noted. Conclusion 1. Limited study was performed 2. Moderate biatrial alignment, normal left ventricular size, mild concentric left ventricular hypertrophy, visually estimated ejection fraction 55% with no regional wall motion abnormality, diastolic parameters are inconclusive. 3. Moderate mitral and tricuspid regurgitation, calculated right ventricular systolic pressure 74 mmHg. 4. No significant pericardial effusion noted, inferior vena cava is not well visualized. Electronically signed by : Shimon Lynn, 09/01/2020 19:09:49
--- NOTE | 2020-09-01 12:15 | HMH.PTEV ---
Physical Therapy Evaluation Rehab PT IP Evaluation Start: 09/01/20 08:52 Freq: ONCE Status: Active Protocol: Document 09/01/20 12:12 PHORNE (Rec: 09/01/20 12:15 PHORNE [id number]) Subjective/History History History 84 yowm adm to [facility] with increased SOA and generalized weakness. He lives with family at baseline. Subjective Subjective Pt with no c/o this am. Rehab PT IP Eval Objective Appearance Patient Behavior Appropriate Patient Orientation Person,Place Difficulty following instructions mild Speech Pattern Soft-Spoken Ambulation Patient Able to Ambulate No Balance Ability to Arise Able, uses arms to help Sitting Balance Leans or slides in chair Standing Balance Unsteady Dynamic Sitting Balance Ability Fair Dynamic Standing Balance Ability Poor Transfers Bed Transfer Ability Moderate x 1 (50% assist) Chair Transfer Ability Moderate x 1 (50% assist) Sit to Stand Bed Transfer Ability Moderate x 1 (50% assist) Sit to Stand Chair Transfer Ability Moderate x 1 (50% assist) ROM All Extremities PT ROM Status WFL MMT All Extremities PT MMT ABN Abnormal MMT Grade grossly 2+/5 Rehab PT IP prob,goals,plan Problems Date of Evaluation: 09/01/20 PT IP Problems Bed Mobility,Transfers,Gait, Balance,Self care Rehab Potential Rehab Potential Fair Plan PT Intervention Plan Bed Mobility,Transfers,Gait, Balance,Self care,Therapeutic Exercise PT Plan Frequency BID Duration LOS Discharge Goals Bed Transfer Ability Minimal x 1 (25% assist) Sit to Stand Chair Transfer Ability Minimal x 1 (25% assist) Ambulation Assistive Device Rolling Walker Ambulation Distance (feet) 10 Discharge Plan PT Discharge Plan Pt is most appropriate for rehab placement at this time with significant risk of falls if he is to return home. G -code Required No Eval Complexity Eval Charge Codes 08790 - Moderate Complexity PHYSICIAN CERTIFICATION: I certify the specified therapy services for Marquis Roman are required, authorized, and reviewed every 30 days.
--- NOTE | 2020-09-01 15:15 | SW/DCPLANNER ---
SPOKE WITH DAUGHTER TODAY AT BEDSIDE REGARDING DISCHARGE PLANS FOR [facility].... SHE IS INTERESTED IN HOSPICE AND STATED SHE DOES NOT WANT TO PUT HIM IN THE [facility].. I EXPLAINED TO HER THAT CARDINAL CELESTE WAS NOT APPROPRIATE AT THIS TIME.. SHE STATED HER DAUGHTER IS A PA AND WISHES TO BE PRESENT WHEN HOSPICE COMES TO EVALUATE PATIENT.. I HAVE SENT PACKET AND CALLED HOSPICE TO LET THEM KNOW I WOULD BE CALLING IN THE AM TO LET THEM KNOW WHEN PATIENTS DAUGHTER AND GRANDDAUGHTER ARE IN THE BUILDING... IF ACCEPTED BY HOSPICE, EQUIPMENT WILL NEED TO BE DELIVERED AND HE MAY BE ABLE TO DISCHARGE IN THE AM AFTER HOSPICE SEES HIM...
--- NOTE | 2020-09-01 17:38 | PC.NURSE ---
pt has refused to eat supper. Three staff members (myself, Maria Esther Reese, and Bel Pulido) attempted to feed him.
[2020-09-02] VITALS (12 sets, daily range): BP systolic 106–134; BP diastolic 47–63; PULSE 70–83; RESP 15–38; TEMP 36.7–37; O2SAT 88–95; BMI 20.6
[2020-09-02 06:50] LABS: Basophils % 0.2 % (0.1-2.0); Eosinophils # 0.3 K/mm3 (0.0-0.4); Eosinophils % 2.2 % (0.1-12.0); Hematocrit 30.1 % (42.0-52.0); Hemoglobin 9.4 g/dL (14.1-18.0); Lymphocytes # 0.8 K/mm3 (0.7-4.5); Lymphocytes % 5.1 % (10-50); Mean Corpuscular HGB Conc 31.2 g/dL (31.8-35.4); Mean Corpuscular Hemoglobin 25.5 pg (27.0-31.2); Mean Corpuscular Volume 81.6 fl (80-94); Mean Platelet Volume 8.1 fl (7.4-10.4); Monocytes # 0.9 K/mm3 (0.1-1.0); Monocytes % 5.6 % (1.7-9.3); Neutrophils # 13.3 K/mm3 (1.8-7.8); Neutrophils % 86.9 % (37.0-80.0); Platelet Count 572 K/mm3 (142-424); Red Blood Count 3.68 M/mm3 (4.60-6.20); Red Cell Distribution Width 16.1 % (11.5-17.5); White Blood Count 15.3 K/mm3 (4.8-10.8)
[2020-09-02 06:59] LABS: MANUAL DIFFERENTIAL MANUAL DIFFERENTIAL (MANUAL DIFF)
[2020-09-02 07:11] LABS: Alanine Aminotransferase 18 U/L (12-78); Albumin Level 2.8 g/dl (3.5-5.0); Albumin/Globulin Ratio 0.8 (1.1-1.8); Alkaline Phosphatase 178 U/L (38-126); Anion Gap 13.9 mEq/L (5-15); Aspartate Amino Transferase 31 U/L (17-59); Bilirubin,Total 0.6 mg/dl (0.2-1.3); Carbon Dioxide 23 mmol/L (22.0-30.0); Chloride 104 mmol/L (98-107); Creatinine Clearance Estimated 13 mL/min (50-200); Estimated Glomerular Filt Rate 13 ml/min (>60); GFR (African American) 16 ML/MIN (>60); Globulin 3.5 g/dL (1.3-3.2); Glucose 96 mg/dl (74-100); Potassium 3.9 mmoL/L (3.5-5.1); Sodium 137 mmol/L (136-145); Total Protein,Serum 6.3 g/dl (6.3-8.2)
[2020-09-02 07:51] LABS: Eosinophils % 1 % (0-3); Lymphocytes % 8 % (10-50); Monocytes % 7 % (2-9); Neutrophils % 84 % (42-76); Total Cells Counted 100
[2020-09-02 07:52] LABS: Hypochromasia 1+
[2020-09-02 07:53] LABS: Platelet Estimate Moderate Increase
--- NOTE | 2020-09-02 07:59 | PC.NURSE ---
pt has refused to eat breakfast
[2020-09-02 08:10] LABS: Blood Urea Nitrogen 76 mg/dl (9-20)
--- NOTE | 2020-09-02 08:11 | PC.NURSE ---
Dr. Geiger notified of Cr 4.50 and BUN 76.
--- NOTE | 2020-09-02 08:24 | HMH.ACPN2 ---
Internal Medicine - PN: Subj *Date: 09/02/20 *Time: 08:24 Interval history: Patient is comfortable, on high intensity oxygen therapy. Exam Vital signs and Labs for Last 24 Hours: Temp Pulse Resp BP Pulse Ox 98.6 F 83 18 106/63 L 89 L 09/02/20 08:00 09/02/20 08:00 09/02/20 08:00 09/02/20 08:00 09/02/20 08:00 Laboratory Results - last 24 hr 09/01/20 06:01: Total Counted 100, Neutrophils % (Manual) 91 H, Lymphocytes % (Manual) 6 L, Monocytes % (Manual) 2, Eosinophils % (Manual) 1, Platelet Estimate Clumped, RBC Morphology Not Reportable, Hypochromasia 3+, Microcytosis 1+ 09/02/20 06:27: WBC 15.3 H, RBC 3.68 L, Hgb 9.4 L, Hct 30.1 L, MCV 81.6, MCH 25.5 L, MCHC 31.2 L, RDW 16.1, Plt Count 572 H, MPV 8.1, Neut % (Auto) 86.9 H, Lymph % (Auto) 5.1 L, [place] % (Auto) 5.6, Eos % (Auto) 2.2, Baso % (Auto) 0.2, Neut # (Auto) 13.3 H, Lymph # (Auto) 0.8, [place] # (Auto) 0.9, Eos # (Auto) 0.3, Baso # (Auto) 0.0, Total Counted 100, Neutrophils % (Manual) 84 H, Lymphocytes % (Manual) 8 L, Monocytes % (Manual) 7, Eosinophils % (Manual) 1, Platelet Estimate Moderate increase, Hypochromasia 1+ 09/02/20 06:27: Sodium 137, Potassium 3.9, Chloride 104, Carbon Dioxide 23, Anion Gap 13.9, BUN 76 H, Creatinine 4.40 H, Estimated Creat Clear 13, Estimated GFR 13 L*, Est GFR ( Amer) 16 L*, Glucose 96, Calcium 8.0 L, Magnesium 2.0, Total Bilirubin 0.6, AST 31, ALT 18, Alkaline Phosphatase 178 H, Total Protein 6.3, Albumin 2.8 L, Globulin 3.5 H, Albumin/Globulin Ratio 0.8 L I & O for Last 24 hours: Intake & Output 08/30/20 08/31/20 09/01/20 09/02/20 11:59 11:59 11:59 11:59 Intake Total 454 / 454 719 / 719 830 / 830 710 / 710 Output Total 500 / 500 300 / 300 1190 / 1190 1250 / 1250 Balance -46 / -46 419 / 419 -360 / -360 -540 / -540 Weight 169 lb 169 lb 2 oz 169 lb 1 oz 155 lb 8 oz Microbiology Reports for the Last 24 Hours: Microbiology 08/27/20 14:28 Blood Blood Culture - Final NO GROWTH AFTER 5 DAYS 08/27/20 14:28 Blood Blood Culture - Final NO GROWTH AFTER 5 DAYS 08/30/20 12:40 Sputum - Expectorated Sputum Gram Stain - Final 08/30/20 12:40 Sputum - Expectorated Sputum Sputum Culture - Preliminary 08/29/20 06:25 Sputum - Expectorated Sputum Gram Stain - Final 08/29/20 06:25 Sputum - Expectorated Sputum Sputum Culture - Final Normal Respiratory Nguyen Narrative: Poor air movement. Heart rate regular. No murmurs. Abdomen soft. Peripheral cyanosis noted. Neurologically intact but globally weak. Assessment and Plan (1) Acute diastolic (congestive) heart failure Status: Acute Category: Medical Code(s): I50.31 - Acute diastolic (congestive) heart failure (2) Shortness of breath Status: Acute Category: Medical Code(s): R06.02 - Shortness of breath (3) Bilateral lower extremity edema Status: Acute Category: Medical Code(s): R60.0 - Localized edema (4) Mitral regurgitation Status: Acute Category: Medical Code(s): I34.0 - Nonrheumatic mitral (valve) insufficiency (5) Pulmonary hypertension Status: Acute Category: Medical Code(s): I27.20 - Pulmonary hypertension, unspecified (6) Pulmonary nodules Status: Acute Category: Medical Code(s): R91.8 - Other nonspecific abnormal finding of lung field (7) PEACE (acute kidney injury) Status: Acute Category: Medical Code(s): N17.9 - Acute kidney failure, unspecified (8) Pleural effusion Status: Acute Category: Medical Code(s): J90 - Pleural effusion, not elsewhere classified (9) Essential hypertension Status: Chronic Category: Medical Code(s): I10 - Essential (primary) hypertension (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
--- NOTE | 2020-09-02 08:32 | HMH.PNCARD ---
Subjective Date: 09/02/20 Time: 08:00 Principal diagnosis: Hypoxia and pulmonary hypertension Interval history: 84-year-old white gentleman who was admitted to the hospital for CHF exacerbation on 08/27/2020. Patient is alert and oriented x3 this a.m. Daughter is at the bedside. Patient did have an uneventful night. Patient denies chest pain, tightness or pressure. Patient denies palpitations or dizziness. Denies fever, vomiting or diarrhea. Patient does complain of increased shortness of breath. Patient is noted to be on a Vapotherm 70%. Patient continues to pulse ox in the low 90s. Patient does seem more alert this a.m. Vital signs are stable. Patient noted to have bilateral lower extremity edema which has been resolved with diuretics. Patient does continue to be on fluid restrictions. Creatinine level remains elevated at 4.40 which seems to be stable at this time. Pulmonology is managing the pleural effusions. Limited echocardiogram revealed EF 55% with moderate mitral and moderate tricuspid regurgitation. Severe pulmonary hypertension noted. Due to congestive heart failure and severe pulmonary hypertension, would recommend right and left heart catheterization to determine the severity of the CHF and pulmonary hypertension. Due to patient's renal status unable to perform right and left heart catheterization at this time. Pt has been on a milrinone continuous drip (per pharmacy dose)to reduce afterload, which pt did diuresis appropriately. Prognosis for patient is poor. Patient is just clinically unstable for right and left heart cath to determine the severity of pulmonary hypertension due to the worsening PEACE. Daughter is requesting to take patient home. Hospice has been consulted. Discussed plan of care with Dr. Galindo. Patient is clinically unstable at this time to perform right and left heart catheterization for pulmonary hypertension, due to worsening PEACE, even though creatinine is remaining stable at 4.40. Creatinine level is remaining stable in the past few days at 4.40. Patient seems to be tolerating the creatinine level between 3-4.50.Ultimate goal for this patient at this time is to decrease afterload causing increase severity of the pulmonary hypertension. Continue diuretics as indicated. Prognosis for this patient is poor. Daughter is requesting to take patient home. Hospice referral per PCP. Please notify cardiology of any changes in patient status. Patient to follow-up with cardiology and 2 to 3 weeks or sooner if signs and symptoms persist. Echo:Conclusion 1. Limited study was performed 2. Moderate biatrial alignment, normal left ventricular size, mild concentric left ventricular hypertrophy, visually estimated ejection fraction 55% with no regional wall motion abnormality, diastolic parameters are inconclusive. 3. Moderate mitral and tricuspid regurgitation, calculated right ventricular systolic pressure 74 mmHg. 4. No significant pericardial effusion noted, inferior vena cava is not well visualized. Thank you for allowing cardiology to participate in the care of this patient. Exam Vital signs and Labs for Last 24 Hours: Temp Pulse Resp BP Pulse Ox 98.6 F 83 18 106/63 L 89 L 09/02/20 08:00 09/02/20 08:00 09/02/20 08:00 09/02/20 08:00 09/02/20 08:00 Laboratory Results - last 24 hr 09/01/20 06:01: Total Counted 100, Neutrophils % (Manual) 91 H, Lymphocytes % (Manual) 6 L, Monocytes % (Manual) 2, Eosinophils % (Manual) 1, Platelet Estimate Clumped, RBC Morphology Not Reportable, Hypochromasia 3+, Microcytosis 1+ 09/02/20 06:27: WBC 15.3 H, RBC 3.68 L, Hgb 9.4 L, Hct 30.1 L, MCV 81.6, MCH 25.5 L, MCHC 31.2 L, RDW 16.1, Plt Count 572 H, MPV 8.1, Neut % (Auto) 86.9 H, Lymph % (Auto) 5.1 L, [place] % (Auto) 5.6, Eos % (Auto) 2.2, Baso % (Auto) 0.2, Neut # (Auto) 13.3 H, Lymph # (Auto) 0.8, [place] # (Auto) 0.9, Eos # (Auto) 0.3, Baso # (Auto) 0.0, Total Counted 100, Neutrophils % (Manual) 84 H, Lympho
--- NOTE | 2020-09-02 11:32 | [facility]H.PULMPN ---
Internal Medicine - PN: Subj *Date: 09/02/20 *Time: 11:32 Interval history: No acute respiratory events overnight. Patient continued to remain on high flow nasal cannula at 60% FiO2 Exam - Constitutional Constitutional:: Present: no acute distress, comfortable - HENMT Exam HENMT: Present: normocephalic, atraumatic - Eye Exam Eyes:: Present: normal appearance both eyes and related structures - Neck Exam Neck:: Present: normal visual inspection - Respiratory Exam Respiratory:: Present: respiratory distress, crackles - Cardiovascular Exam Cardiac:: Present: S1, S2 - GI Exam GI:: Present: soft, no hepatosplenomegaly - Skin Exam Skin: Present: warm, no rash, dry - Neurological Exam Neurological: Present: alert, awake - Extremities Exam Extremities: Present: no cyanosis, no clubbing, no edema - Psychiatric Exam Psychiatric: Present: normal affect, appearance grossly normal Assessment and Plan (1) Acute diastolic (congestive) heart failure Status: Acute Category: Medical Code(s): I50.31 - Acute diastolic (congestive) heart failure (2) Shortness of breath Status: Acute Category: Medical Code(s): R06.02 - Shortness of breath (3) Bilateral lower extremity edema Status: Acute Category: Medical Code(s): R60.0 - Localized edema (4) Mitral regurgitation Status: Acute Category: Medical Code(s): I34.0 - Nonrheumatic mitral (valve) insufficiency (5) Pulmonary hypertension Status: Acute Category: Medical Code(s): I27.20 - Pulmonary hypertension, unspecified (6) Pulmonary nodules Status: Acute Category: Medical Code(s): R91.8 - Other nonspecific abnormal finding of lung field (7) PEACE (acute kidney injury) Status: Acute Category: Medical Code(s): N17.9 - Acute kidney failure, unspecified (8) Pleural effusion Status: Acute Category: Medical Code(s): J90 - Pleural effusion, not elsewhere classified (9) Essential hypertension Status: Chronic Category: Medical Code(s): I10 - Essential (primary) hypertension (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cquired absence of kidney - Assessment and plan all Dx Assessment and Plan for all problems:: #Acute hypoxic respiratory failure: #MRSA pneumonia: #HAP #Pulmonary hypertension diagnosed by echocardiogram 84-year-old male with no prior respiratory complaints not on any oxygen at home, recently admitted to the hospital for MRSA bacteremia and pneumonia, patient was treated with 7 days of Vanc + cefepime and was discharged vancomycin and on 2 L nasal cannula presented to the hospital worsening respiratory failure needing Ventimask 50% to maintain his oxygen saturations. Patient during his recent admission also found to be volume overload with bilateral pleural effusions status post bilateral thoracentesis with transudate effusions. cytopathology resulted negative for malignancy Patient on admission presently worsening respiratory failure needing high flow nasal oxygen supplementation he appears to be significantly volume overloaded but given his pulmonary hypertension and volume overload patient was aggressively diuresed with significant improvement in his lower extremity edema however did did not improve patient's respiratory status and he continued to remain on high flow nasal cannula. Patient completed 10-day course of vancomycin post negative blood cultures. Repeat blood cultures no growth on this admission. Repeat echocardiogram post diuresis still showed RVSP of 74, unchanged from prior at 73. Given patient's continued need for high oxygen requirements, continued elevation of right heart pressures, I am concerned that his elevated RVSP can be secondary to anoxia from his pneumonia/worsening fibrosis/organizing pneumonia/pulmonary embolism Primary team have discussed with the family regarding hospice, however I have discussed with the patient's daughter would
--- NOTE | 2020-09-02 12:59 | HMH.DCSUM ---
General - General Admission date:: 08/27/20 Discharge date: 09/02/20 HPI HPI: This is an 84-year-old white gentleman who was admitted to the hospital for CHF exacerbation. The patient was just discharged from the hospital 2 days ago on Monday. He had previously been admitted and had cellulitis in his face. The patient was found to have multiple lung nodules that were concerning for possible infection versus metastatic disease secondary to his recent history of metastatic renal cell carcinoma. The patient also had bilateral pleural effusions. He did undergo thoracentesis on the right x2 and thoracentesis on the left x1 during his last hospital stay. As mentioned above the patient was discharged on Monday pain he went to see Dr. Geiger today. The patient was profoundly short of breath and then readmitted to the hospital. His daughter states that on Monday night the patient started to get more progressively short of breath and his bilateral lower extremity edema significantly worsened. She states that he woke up at 1 AM this morning and was severely short of breath and his oxygen saturations were down at 66%. The patient's daughter had him take some deep breaths and was able to get his oxygen saturation up to 73%. She states that she knew they had an appointment to see Dr. Geiger today and when they went and he was significantly short of breath and he was admitted to the hospital for CHF exacerbation. He denies any chest pain or pressure. He is profoundly short of breath and on a nonrebreather. He states his shortness of breath is somewhat better on the nonrebreather but he still feels really short of breath even at rest. He states that he has severe leg edema. His shortness of breath is associated with orthopnea. He denies any fevers, nausea, vomiting or diarrhea. Above note per cardiology consultation, appreciated, agree with note above and presentation data. Hospital Course Hospital Course: Patient was admitted to hospital, extensive work-up was undertaken including right heart catheterization which revealed significantly elevated pulmonary pressures and evidence of pulmonary hypertension. Cardiology recommended significant diuresis and this was done with intravenous Lasix resulting and expected elevation of creatinine and minimal if any improvement of the patient's dyspnea. He continued to require significant high flow oxygen and echocardiogram done after aggressive diuresis showed no improvement in right ventricular pressure elevation. Sildenafil and anticoagulation therapy were given also without benefit. Patient antibiotics were continued throughout his hospitalization stay. After multiple conversations with patient's daughter and the patient and including the patient's granddaughter-who is a certified physician ict sales assistant in [place] and who is also the patient's healthcare surrogate, it was decided that patient would not benefit from further aggressive intervention given his advanced age, history of renal cell cancer that he does not wish treated and intractable pulmonary hypertension. Hospice was consulted and agreed that the patient would be best served by their services at home. The patient will be transferred to home today with high flow oxygen at 10 L nasal cannula, hospital bed and other equipment are in place. Patient will maintain a DNR/DNI status-this has been confirmed with patient and granddaughter. Patient will be prescribed pain medication, his previous buspirone. Diet will be as tolerated. Overall prognosis is poor. Objective Vital signs: Temp Pulse Resp BP Pulse Ox 98.6 F 77 21 129/53 L 93 L 09/02/20 11:43 09/02/20 10:00 09/02/20 10:00 09/02/20 10:00 09/02/20 10:00 mild distress, thin, cachectic - *Routine HEENT Exam Head: Present: normocephalic Eye: Present: EOMI, PERRL ENT: Present: mucous membranes dry - *Routine Neck Exam Present: supple - *Routine Respirat
--- NOTE | 2020-09-02 14:36 | PC.NURSE ---
pt refused CT scan
== END 2020-09-02 15:20 | disposition hospice, home (50) | DRG 291 ==
PROVIDERS: Internal Medicine Adolescent Medicine; Internal Medicine Pulmonary Disease; Nurse Practitioner Family; Urology; Admitting Provider Internal Medicine Adolescent Medicine; PCP Internal Medicine Adolescent Medicine; Visit Provider Internal Medicine Adolescent Medicine
DX: I11.0 Hypertensive heart disease with heart failure (principal); J15.212 Pneumonia due to Methicillin resistant Staphylococcus aureus; E43 Unspecified severe protein-calorie malnutrition; J96.01 Acute respiratory failure with hypoxia; J18.9 Pneumonia, unspecified organism; N17.9 Acute kidney failure, unspecified; C79.51 Secondary malignant neoplasm of bone; I50.33 Acute on chronic diastolic (congestive) heart failure; R91.8 Other nonspecific abnormal finding of lung field; Z90.5 Acquired absence of kidney; I27.20 Pulmonary hypertension, unspecified; I08.0 Rheumatic disorders of both mitral and aortic valves; Z68.20 Body mass index [BMI] 20.0-20.9, adult; R59.0 Localized enlarged lymph nodes; Y95 Nosocomial condition; Z85.528 Personal history of other malignant neoplasm of kidney; D63.0 Anemia in neoplastic disease; Z51.5 Encounter for palliative care
CPT/HCPCS: 36415; 71045; 80048; 80053; 80202; 81001; 82803; 83605; 83735; 83880; 84145; 84484; 85007; 85025; 87040; 87070; 87205; 93005; 93308; 93970; 94640; 94761; 97162; 97530; J0692; J2260; J3370; U0003